=== PATIENT | female | born 1970 | race Caucasian/White ===

== ENCOUNTER → 2016-07-30 | Outpatient (CLI) | payer OTHER ==
--- NOTE | 2016-07-30 13:24 | US ---
EXAMINATION TYPE: US transvaginal DATE OF EXAM: 07/30/2016 1:09 PM COMPARISON: Previous study dated 05/15/2011. CLINICAL HISTORY: pelvic swelling, history of endometrial ablation. Date of LMP: no cycles since ablation approximately 7 years ago EXAM MEASUREMENTS: Uterus: 6.8 x 2.5 x 4.6 cm Endometrial Stripe: 0.3 cm Right Ovary: 2.5 x 1.6 x 1.0 cm Left Ovary: 1.7 x 1.5 x 0.9 cm FINDINGS: TECHNOLOGIST IMPRESSION: 1. Uterus: Anteverted fibroid measuring 1.1 x 0.8 x 0.8 cm 2. Endometrium: measures 0.3 cm 3. Right Ovary: within normal limits 4. Left Ovary: within normal limits 5. Bilateral Adnexa: within normal limits 6. Posterior cul-de-sac: no free fluid IMPRESSION: Fibroid uterus. Normal Values: Uterine Length: < 10cm Endometrium: Proliferative (Day 6 ? 14): 4 ? 6mm [place] (Day 15 ? 28): 7 ? 14mm Post Menopausal (and not symptomatic): up to 8mm Post Menopausal (with vaginal bleeding): upper limits <5mm Post Menopausal with HRT: upper limits 8 - 15mm Post Menopausal with tamoxifen: < 6mm (although 50% of those receiving tamoxifen have been reported t o have thickness >8mm)
--- NOTE | 2016-07-31 14:05 | MM ---
Reason for exam: screening (asymptomatic). Last mammogram was performed 1 year and 9 months ago. History: Family history of breast cancer in maternal grandmother. Physical Findings: A clinical breast exam by your physician is recommended on an annual basis and results should be correlated with mammographic findings. MG Screening Mammo w CAD Bilateral CC and MLO view(s) were taken. Prior study comparison: October 17, 2014, right breast MG work up mamm w CAD RT. October 12, 2014, bilateral MG screening mammo w CAD. March 18, 2012, bilateral digital screening mammo w/CAD. There are scattered fibroglandular densities. No significant changes when compared with prior studies. ASSESSMENT: Negative, BI-RAD 1 RECOMMENDATION: Routine screening mammogram of both breasts in 1 year.
== END | disposition home or self-care (01) ==
LOC: RADUSWWP 12:32
PROVIDERS: ATTEND Family Medicine
DX: Z12.31 Encounter for screening mammogram for malignant neoplasm of breast (principal); D25.9 Leiomyoma of uterus, unspecified
CPT/HCPCS: 76830; G0202

== ENCOUNTER → 2016-10-10 | Outpatient (CLI) | payer OTHER ==
[2016-10-10 08:16] LABS: ALT 34 U/L (9-52); AST 24 U/L (14-36); Cholesterol 151 mg/dL (<200); HDL Cholesterol 57 mg/dL (40-60); Triglycerides 111 mg/dL (<150)
== END | disposition home or self-care (01) ==
LOC: LABWHC1 06:46
PROVIDERS: ATTEND Nurse Practitioner Adult Health
DX: E78.5 Hyperlipidemia, unspecified (principal); E11.9 Type 2 diabetes mellitus without complications
CPT/HCPCS: 36415; 80061; 84450; 84460

== ENCOUNTER 2017-03-25 00:38 | Observation (INO) | payer OTHER ==
[2017-03-25] MEDS ORDERED: SODIUM CHLORIDE 0.9% 500 ML IV STA (01:12)
[2017-03-25 01:23] LABS: Basophils # (A) 0.1 k/uL (0-0.2); Basophils % (A) 1 %; CH 29.8; CHCM 32.6; Eosinophils # (A) 0.2 k/uL (0-0.7); Eosinophils % (A) 2 %; HCT 40.4 % (34.0-46.0); HDW 2.32; HGB 13.3 gm/dL (11.4-16.0); Luc # (Auto) 0.37; Luc % (Auto) 3; Lymphocytes # (A) 3.9 k/uL (1.0-4.8); Lymphocytes % (A) 33 %; MCH 30.2 pg (25.0-35.0); MCHC 32.8 g/dL (31.0-37.0); MCV 91.9 fL (80.0-100.0); Mean Platelet Volume 7.3; Monocytes # (A) 0.6 k/uL (0-1.0); Monocytes % (A) 5 %; Neutrophils # (A) 6.9 k/uL (1.3-7.7); Neutrophils % (A) 57 %; WBC 12.1 k/uL (3.8-10.6); WBC (Perox) 11.49
[2017-03-25 01:32] LABS: ALT 41 U/L (9-52); AST 22 U/L (14-36); Alkaline Phosphatase 98 U/L (38-126); Anion Gap 12 mmol/L; Blood Urea Nitrogen 14 mg/dL (7-17); Calcium 9.8 mg/dL (8.4-10.2); Carbon Dioxide 25 mmol/L (22-30); Chloride 104 mmol/L (98-107); Glucose 158 mg/dL (74-99); Magnesium 1.9 mg/dL (1.6-2.3); Non-African American GFR(MDRD) >60 (>60 ml/min/1.73 sqM); Potassium 4.1 mmol/L (3.5-5.1); Sodium 141 mmol/L (137-145); Total Bilirubin 0.3 mg/dL (0.2-1.3); Total Protein 7.1 g/dL (6.3-8.2)
[2017-03-25 01:36] LABS: INR 0.9 (<1.2); Partial Thromboplastin Time 29.3 sec (22.0-30.0); Prothrombin Time 9.3 sec (9.0-12.0)
[2017-03-25] MEDS ORDERED: RX INFO: IV CONTRAST WAS GIVEN 1 EACH MISC MISCELLANE PRN ×3 (01:50→13:48)
[2017-03-25] MEDS ORDERED: methylPREDNISolone SOD SUCCI 125 MG/2 ML VIAL IV STA (01:51)
[2017-03-25] MEDS ORDERED: diphenhydrAMINE 50 MG/ML 1 ML VIAL IVP STA (01:51)
[2017-03-25] MEDS ORDERED: FAMOTIDINE 20 MG/2 ML VIAL IV STA (01:51)
--- NOTE | 2017-03-25 01:55 | ED ---
Arrhythmia/Palpitations HPI - General Chief Complaint: Arrhythmia/Palpitations Stated Complaint: arrhythmia Time Seen by Provider: 03/25/17 00:50 Source: patient Mode of arrival: wheelchair Limitations: no limitations - History of Present Illness Initial Comments: This patient is a 46-year-old woman who presents to be evaluated for racing heart. The patient states that she had gone to sleep feeling approximately her usual self, and then she woke up about 30 minutes before arrival here with a feeling that her heart was racing and that she was short of breath. She did feel warm, and there was a bit of pressure in her chest. She states that she is feeling a little better but her heart is still racing. The patient states she has had previous episodes of this and was diagnosed with "tachycardia." She does state that this episode feels more severe than the previous ones. MD Complaint: rapid heart beat -: minutes(s) Context: occurred during rest Associated Symptoms: chest pain, shortness of breath - Related Data Home Medications Medication Instructions Recorded Confirmed metFORMIN HCL [Glucophage] 500 mg PO AC-BID 09/17/15 03/25/17 Aspirin 81 mg PO DAILY 03/25/17 03/25/17 Cholecalciferol [Vitamin D3] 1,000 unit PO DAILY 03/25/17 03/25/17 Pravastatin Sodium [Pravachol] 20 mg PO QAM 03/25/17 03/25/17 Vitamin B Complex 1 cap PO DAILY 03/25/17 03/25/17 Allergies Allergy/AdvReac Type Severity Reaction Status Date / Time iodine Allergy Rash/Hives Verified 03/25/17 07:47 Sulfa (Sulfonamide Allergy Rash/Hives Verified 03/25/17 07:47 Antibiotics) Review of Systems ROS Statement: Those systems with pertinent positive or pertinent negative responses have been documented in the HPI. ROS Other: All systems not noted in ROS Statement are negative. Constitutional: Denies: fever, chills, weakness Respiratory: Reports: dyspnea. Denies: cough, wheezes Cardiovascular: Reports: chest pain, palpitations. Denies: dyspnea on exertion , orthopnea Gastrointestinal: Denies: abdominal pain, nausea, vomiting Genitourinary: Denies: dysuria, hematuria Musculoskeletal: Denies: back pain Skin: Denies: rash Neurological: Denies: headache, weakness, numbness Psychiatric: Reports: anxiety Past Medical History Past Medical History: Diabetes Mellitus Additional Past Medical History / Comment(s): diet control diabetic, lumps in neck felt, enlarged salivary gland, tachycardia History of Any Multi-Drug Resistant Organisms: None Reported Past Surgical History: Cholecystectomy, Tonsillectomy, Tubal Ligation, Uterine Ablation Additional Past Surgical History / Comment(s): heel spur medical lupus, factor 5 Past Anesthesia/Blood Transfusion Reactions: No Reported Reaction Past Psychological History: Anxiety Smoking Status: Current every day smoker Past Alcohol Use History: Occasional Past Drug Use History: Marijuana - Past Family History Mother Family Medical History: No Reported History General Exam Limitations: no limitations General appearance: alert, in no apparent distress Head exam: Present: atraumatic, normocephalic, normal inspection Eye exam: Present: normal appearance. Absent: scleral icterus, conjunctival injection ENT exam: Present: normal oropharynx Neck exam: Present: normal inspection, full ROM Respiratory exam: Present: normal lung sounds bilaterally. Absent: respiratory distress, wheezes, rales, rhonchi, stridor Cardiovascular Exam: Present: normal rhythm, tachycardia, normal heart sounds. Absent: systolic murmur, diastolic murmur, rubs, gallop GI/Abdominal exam: Present: soft. Absent: distended, tenderness, guarding, rebound, rigid Extremities exam: Present: normal inspection, normal capillary refill. Absent: pedal edema, calf tenderness Back exam: Absent: CVA tenderness (R), CVA tenderness (L) Neurological exam: Present: alert Skin exam: Present: warm, dry, intact, normal color. Absent: rash Course Vital Signs 03/25/17 03/25/17 03/25/17 00:43 01:38 02:30 Temperature 98.5 F Pulse Rate 130 H 110 H 108 H Pulse Rate [ Pulse Oximetery ] Respiratory 16 18 18 Rate Blood Pressure 179/84 146/68 153/72 Blood Pressure [Left Arm] O2 Sat by Pulse 95 97 97 Oximetry 03/25/17 03/25/17 03/25/17 03:05 03:30 04:00 Temperature Pulse Rate 104 H 96 90 Pulse Rate [ Pulse Oximetery ] Respiratory 18 18 18 Rate Blood Pressure 136/68 142/71 126/67 Blood Pressure [Left Arm] O2 Sat by Pulse 96 96 95 Oximetry 03/25/17 03/25/17 03/25/17 04:52 05:00 05:06 Temperature 98.4 F 98.0 F Pulse Rate 100 Pulse Rate [ 91 Pulse Oximetery ] Respiratory 18 18 Rate Blood Pressure 139/67 Blood Pressure 135/64 [Left Arm] O2 Sat by Pulse 95 96 Oximetry EKG Findings - EKG Results: EKG: interpreted by ERMD, sinus rhythm, normal axis, normal QRS EKG shows: tachycardia (Rate aproximately 131 bpm) - Blocks, [place], Hypertrophy, ST Abn: Repolarization changes or abnormalities: nonspecific abnormality, ST segment, and/or T wave Medical Decision Making - Lab Data Result diagrams: 03/25/17 00:59 03/25/17 00:59 Lab Results 03/25/17 03/25/17 03/25/17 Range/Units 00:59 00:59 00:59 WBC 12.1 H (3.8-10.6) k/uL RBC 4.40 (3.80-5.40) m/uL Hgb 13.3 (11.4-16.0) gm/dL Hct 40.4 (34.0-46.0) % MCV 91.9 (80.0-100.0) fL MCH 30.2 (25.0-35.0) pg MCHC 32.8 (31.0-37.0) g/dL RDW 15.0 (11.5-15.5) % Plt Count 336 (150-450) k/uL Neutrophils % 57 % Lymphocytes % 33 % Monocytes % 5 % Eosinophils % 2 % Basophils % 1 % Neutrophils # 6.9 (1.3-7.7) k/uL Lymphocytes # 3.9 (1.0-4.8) k/uL Monocytes # 0.6 (0-1.0) k/uL Eosinophils # 0.2 (0-0.7) k/uL Basophils # 0.1 (0-0.2) k/uL PT 9.3 (9.0-12.0) sec INR 0.9 (<1.2) APTT 29.3 (22.0-30.0) sec D-Dimer 0.76 H (<0.60) mg/L FEU Sodium 141 (137-145) mmol/L Potassium 4.1 (3.5-5.1) mmol/L Chloride 104 (98-107) mmol/L Carbon Dioxide 25 (22-30) mmol/L Anion Gap 12 mmol/L BUN 14 (7-17) mg/dL Creatinine 0.70 (0.52-1.04) mg/dL Est GFR (MDRD) Af Amer >60 (>60 ml/min/1.73 sqM) Est GFR (MDRD) Non-Af >60 (>60 ml/min/1.73 sqM) Glucose 158 H (74-99) mg/dL Calcium 9.8 (8.4-10.2) mg/dL Magnesium 1.9 (1.6-2.3) mg/dL Total Bilirubin 0.3 (0.2-1.3) mg/dL AST 22 (14-36) U/L ALT 41 (9-52) U/L Alkaline Phosphatase 98 (38-126) U/L Troponin I (0.000-0.034) ng/mL Total Protein 7.1 (6.3-8.2) g/dL Albumin 4.4 (3.5-5.0) g/dL TSH 1.610 (0.465-4.680) mIU/L Urine Color Urine Appearance (Clear) Urine pH (5.0-8.0) Ur Specific [place] (1.001-1.035) Urine Protein (Negative) Urine Glucose (UA) (Negative) Urine Ketones (Negative) Urine Blood (Negative) Urine Nitrite (Negative) Urine Bilirubin (Negative) Urine Urobilinogen (<2.0) mg/dL Ur Leukocyte Esterase (Negative) Urine RBC (0-5) /hpf Urine WBC (0-5) /hpf Ur Squamous Epith Cells (0-4) /hpf Urine Bacteria (None) /hpf Urine Mucus (None) /hpf 03/25/17 03/25/17 Range/Units 00:59 02:20 WBC (3.8-10.6) k/uL RBC (3.80-5.40) m/uL Hgb (11.4-16.0) gm/dL Hct (34.0-46.0) % MCV (80.0-100.0) fL MCH (25.0-35.0) pg MCHC (31.0-37.0) g/dL RDW (11.5-15.5) % Plt Count (150-450) k/uL Neutrophils % % Lymphocytes % % Monocytes % % Eosinophils % % Basophils % % Neutrophils # (1.3-7.7) k/uL Lymphocytes # (1.0-4.8) k/uL Monocytes # (0-1.0) k/uL Eosinophils # (0-0.7) k/uL Basophils # (0-0.2) k/uL PT (9.0-12.0) sec INR (<1.2) APTT (22.0-30.0) sec D-Dimer (<0.60) mg/L FEU Sodium (137-145) mmol/L Potassium (3.5-5.1) mmol/L Chloride (98-107) mmol/L Carbon Dioxide (22-30) mmol/L Anion Gap mmol/L BUN (7-17) mg/dL Creatinine (0.52-1.04) mg/dL Est GFR (MDRD) Af Amer (>60 ml/min/1.73 sqM) Est GFR (MDRD) Non-Af (>60 ml/min/1.73 sqM) Glucose (74-99) mg/dL Calcium (8.4-10.2) mg/dL Magnesium (1.6-2.3) mg/dL Total Bilirubin (0.2-1.3) mg/dL AST (14-36) U/L ALT (9-52) U/L Alkaline Phosphatase (38-126) U/L Troponin I 0.013 (0.000-0.034) ng/mL Total Protein (6.3-8.2) g/dL Albumin (3.5-5.0) g/dL TSH (0.465-4.680) mIU/L Urine Color Light Yellow Urine Appearance Clear (Clear) Urine pH 5.5 (5.0-8.0) Ur Specific [place] 1.006 (1.001-1.035) Urine Protein Negative (Negative) Urine Glucose (UA) Negative (Negative) Urine Ketones Negative (Negative) Urine Blood Negative (Negative) Urine Nitrite Negative (Negative) Urine Bilirubin Negative (Negative) Urine Urobilinogen <2.0 (<2.0) mg/dL Ur Leukocyte Esterase Small H (Negative) Urine RBC 1 (0-5) /hpf Urine WBC 2 (0-5) /hpf Ur Squamous Epith Cells 2 (0-4) /hpf Urine Bacteria Rare H (None) /hpf Urine Mucus Rare H (None) /hpf Critical Care Time Critical Care Time: Yes (35 minutes) Disposition Clinical Impression: Pulmonary embolus Disposition: ADMITTED IP TO THIS HOSP Condition: Fair
[2017-03-25 02:33] LABS: Appearance,Urine Clear (Clear); Bacteria,Urine Rare /hpf; Bilirubin,Urine Negative (Negative); Glucose,Urine (UA) Negative (Negative); Ketones,Urine Negative (Negative); Leukocyte Esterase,Urine Small (Negative); Mucus,Urine Rare /hpf; Nitrite,Urine Negative (Negative); PH, Urine 5.5 (5.0-8.0); Particle Count 2484; Protein,Urine Negative (Negative); RBC,Urine 1 /hpf (0-5); Specific Gravity,Urine 1.006 (1.001-1.035); Squamous Epithelial Cell,Urine 2 /hpf (0-4); UA Billing (MACRO vs. MICRO) MICRO; Urobilinogen,Urine <2.0 mg/dL (<2.0); WBC,Urine 2 /hpf (0-5)
--- NOTE | 2017-03-25 02:54 | XR ---
PROCEDURE: FILM CXR 1 VIEW HISTORY: 46 year-old female with arrhythmia. COMPARISON: Chest radiograph 09/17/2015 TECHNIQUE: Frontal view of the chest was obtained. FINDINGS: Limited by technique. Cardiomediastinal silhouette is stable. No evidence of focal consolidation, pleural effusion, or pneumothorax. Bones are unremarkable for age. IMPRESSION: Unremarkable single view chest.
--- NOTE | 2017-03-25 04:17 | CT ---
PROCEDURE: CTA CHEST HISTORY: 46-year-old female with arrhythmia and elevated d-dimer. COMPARISON: CT chest 06/05/2016 TECHNIQUE: After administration of 70 mL of Omnipaque 350 contrast material intravenously, CT imaging was obtained through the chest. Coronal and sagittal reformations were performed. Coronal and sagittal MIP reformations were also performed. DOSE: Total Exam volume computed tomography dose index (CTDIvol) = 85.5 mGy and Dose Length Product (DLP) = 385.7 mGY-cm. This CT exam was performed using one or more of the following dose reduction techniques: automated exposure control, adjustment of the mA and/or kV according to patient size, and/or use of iterative reconstruction technique. FINDINGS: Evaluation is limited by motion degradation. Soft tissues: Visualized portions of the thyroid gland are unremarkable. No significant mediastinal, hilar, or axillary lymphadenopathy. There are a few calcified left hilar and mediastinal lymph nodes, likely due to prior granulomatous exposure. There is evidence of occlusive segmental and subsegmental pulmonary embolism to the apical segment of the right upper lobe. The RV/LV ratio measures approximately 0.9 . Otherwise, the heart and great vessels are within normal limits. The esophagus is unremarkable. Limited evaluation of the upper abdomen demonstrates a splenic calcification, likely due to prior granulomatous exposure. Lungs: Bilateral atelectasis. Mild paraseptal emphysema. 2 millimeter, solid-appearing, pleural-based nodule along the right minor fissure anteriorly, series 5 image 91 unchanged compared to prior. No pleural effusion. 6 millimeter density in the dependent portion of the distal trachea, series 5 image 54, may represent secretions or small nodule. Bones: Multilevel degenerative changes of the spine IMPRESSION: 1. Occlusive segmental and subsegmental pulmonary embolism to the apical segment of the right upper lobe. The RV/LV ratio measures approximately 0. 9. 2. Mild paraseptal emphysema. 3. 6 millimeter density in the dependent portion of the distal trachea, series 5 image 54, may represent secretions or small nodule. Attention to this region on followup imaging. 4. Other findings as detailed above. [employer] 03/25/17 04:16 Call Doctor Regarding Above results, called Dr. Yu on 03/25 04:15 (-04:00)
[2017-03-25] MEDS ORDERED: HEPARIN SODIUM,PORCINE 5,000 UNIT/ML 1 ML VIAL IV STA (04:33)
[2017-03-25] MEDS ORDERED: HEPARIN SODIUM,PORCINE/D5W PMX 25,000 UNIT in DEXTROSE/WATER 1 500ML.BAG IV ONE (04:33)
[2017-03-25] MEDS ORDERED: ONDANSETRON 4 MG/2 ML VIAL IVP PRN (04:35)
[2017-03-25] MEDS ORDERED: ACETAMINOPHEN TAB 325 MG TAB PO PRN (04:35)
[2017-03-25] MEDS ORDERED: MORPHINE SULFATE 4 MG/ML SYRINGE IV PRN (04:35)
[2017-03-25] MEDS ORDERED: NALOXONE 0.4 MG/ML 1 ML VIAL IV PRN (04:35)
[2017-03-25] MEDS ORDERED: SODIUM CHLORIDE 0.9% 1,000 ML IV SCH (04:45)
[2017-03-25] MEDS ORDERED: HEPARIN SODIUM,PORCINE/D5W PMX 25,000 UNIT in DEXTROSE/WATER 1 500ML.BAG IV SCH (04:53)
[2017-03-25 05:48] VITALS: BMI 33.0
[2017-03-25 06:28] LABS: Glucose,Whole Blood 177 mg/dL (75-99)
[2017-03-25] MEDS: INSULIN LISPRO (humaLOG) 300 UNIT/3 ML VIAL SQ SCH ×3 (06:41→12:45)
[2017-03-25 08:36] LABS: Hemoglobin A1C 6.8 % (4.2-6.1)
[2017-03-25 08:47] LABS: Glucose,Whole Blood 240 mg/dL (75-99)
[2017-03-25] MEDS ORDERED: FAMOTIDINE 20 MG TAB PO SCH (09:00)
[2017-03-25] MEDS ORDERED: ASPIRIN 325 MG TAB PO SCH (09:00)
--- NOTE | 2017-03-25 09:32 | P.CRDCN ---
History of Present Illness Chief complaint: acute PE History of present illness: Please see full dictation by Dr. abraham. 46-year-old female patient of Dr. Elvira Morales and myself who is a history of inappropriate sinus tachycardia, dyslipidemia, smoking and a history of asthma. She also has diabetes. She presents with acute pulmonary embolism, presented with palpitations and shortness of breath that woke her up at night. In May she had a CT contrast of the chest which did not show any pulmonary embolism. This seems somewhat unprovoked. No recent injury no recent long car travel or air travel, no family history no recent surgeries Plan 2-D echo and Doppler study and anticoagulation Management per admitting physician Watch for any arrhythmias Past Medical History Past Medical History: Diabetes Mellitus Additional Past Medical History / Comment(s): diet control diabetic, lumps in neck felt, enlarged salivary gland, tachycardia History of Any Multi-Drug Resistant Organisms: None Reported Past Surgical History: Cholecystectomy, Tonsillectomy, Tubal Ligation, Uterine Ablation Additional Past Surgical History / Comment(s): heel spur medical lupus, factor 5 Past Anesthesia/Blood Transfusion Reactions: No Reported Reaction Past Psychological History: Anxiety Smoking Status: Current every day smoker Past Alcohol Use History: Occasional Past Drug Use History: Marijuana - Past Family History Mother Family Medical History: No Reported History Medications and Allergies Home Medications Medication Instructions Recorded Confirmed Type metFORMIN HCL [Glucophage] 500 mg PO AC-BID 09/17/15 03/25/17 History Aspirin 81 mg PO DAILY 03/25/17 03/25/17 History Cholecalciferol [Vitamin D3] 1,000 unit PO DAILY 03/25/17 03/25/17 History Pravastatin Sodium [Pravachol] 20 mg PO QAM 03/25/17 03/25/17 History Vitamin B Complex 1 cap PO DAILY 03/25/17 03/25/17 History Allergies Allergy/AdvReac Type Severity Reaction Status Date / Time iodine Allergy Rash/Hives Verified 03/25/17 07:47 Sulfa (Sulfonamide Allergy Rash/Hives Verified 03/25/17 07:47 Antibiotics) Physical Exam Vitals: Vital Signs Temp Pulse Pulse Resp BP BP Pulse Ox 03/25/17 08:30 98.5 F 89 18 127/69 95 03/25/17 05:06 98.0 F 03/25/17 05:00 100 18 139/67 96 03/25/17 04:52 98.4 F 91 18 135/64 95 03/25/17 04:00 90 18 126/67 95 03/25/17 03:30 96 18 142/71 96 03/25/17 03:05 104 H 18 136/68 96 03/25/17 02:30 108 H 18 153/72 97 03/25/17 01:38 110 H 18 146/68 97 03/25/17 00:43 98.5 F 130 H 16 179/84 95 Intake and Output 03/24/17 03/25/17 03/25/17 22:59 06:59 14:59 Intake Total 1074 Balance 1074 Intake: Intake, IV Titration 1074 Amount Sodium Chloride 0.9% 1, 75 000 ml @ 75 mls/hr IV . [id number] [facility] Rx#:[id number] Sodium Chloride 0.9% 500 999 ml @ 999 mls/hr IV .Q31M [facility]A Rx#:[id number] Other: # Voids 1 Weight 76.7 kg Results 03/25/17 00:59 03/25/17 00:59 Cardiac Enzymes 03/25/17 03/25/17 Range/Units 00:59 00:59 AST 22 (14-36) U/L Troponin I 0.013 (0.000-0.034) ng/mL Coagulation 03/25/17 Range/Units 00:59 PT 9.3 (9.0-12.0) sec APTT 29.3 (22.0-30.0) sec CBC 03/25/17 Range/Units 00:59 WBC 12.1 H (3.8-10.6) k/uL RBC 4.40 (3.80-5.40) m/uL Hgb 13.3 (11.4-16.0) gm/dL Hct 40.4 (34.0-46.0) % Plt Count 336 (150-450) k/uL Comprehensive Metabolic Panel 03/25/17 Range/Units 00:59 Sodium 141 (137-145) mmol/L Potassium 4.1 (3.5-5.1) mmol/L Chloride 104 (98-107) mmol/L Carbon Dioxide 25 (22-30) mmol/L BUN 14 (7-17) mg/dL Creatinine 0.70 (0.52-1.04) mg/dL Glucose 158 H (74-99) mg/dL Calcium 9.8 (8.4-10.2) mg/dL AST 22 (14-36) U/L ALT 41 (9-52) U/L Alkaline Phosphatase 98 (38-126) U/L Total Protein 7.1 (6.3-8.2) g/dL Albumin 4.4 (3.5-5.0) g/dL Current Medications Generic Name Dose Route Start Last Admin Trade Name Freq PRN Reason Stop Dose Admin Acetaminophen 650 mg 03/25/17 04:35 Tylenol Tab PO Q6HR PRN Mild Pain or Fever > 100.5 Aspirin 325 mg 03/25/17 09:00 03/25/17 08:43 Aspirin PO 325 mg DAILY SJ Administration Cholecalciferol 400 unit 03/25/17 12:00 03/25/17 08:41 Vitamin D3 PO 400 unit DAILY@1200 SJ Administration Famotidine 20 mg 03/25/17 09:00 03/25/17 08:41 Pepcid PO 20 mg BID SJ Administration Sodium Chloride 1,000 mls @ 75 mls/hr 03/25/17 04:45 03/25/17 04:50 Saline 0.9% IV 75 mls/hr .[id number] SJ Administration Heparin Sodium/Dextrose 25,000 500 mls @ 27.92 mls/hr 03/25/17 04:53 04:54 unit/ IV Solution IV 18 units/kg/hr .[id number] SJ 27.92 mls/hr Protocol Administration 18 UNITS/KG/HR Insulin Human Lispro 0 unit 03/25/17 07:30 03/25/17 08:44 Humalog SQ 3 unit ACHS SJ Administration Protocol Miscellaneous Information 1 each 03/25/17 01:50 Rx Info: Iv Contrast Was Given MISCELLANE 03/27/17 01:51 DAILY PRN Per Protocol Morphine Sulfate 4 mg 03/25/17 04:35 Morphine Sulfate (Inj) IV Q4HR PRN Severe Pain Naloxone HCl 0.2 mg 03/25/17 04:35 Narcan IV Q2M PRN Opioid Reversal Ondansetron HCl 4 mg 03/25/17 04:35 Zofran IVP Q8HR PRN Nausea And Vomiting Intake and Output 08/2903/25/17 03/25/17 22:59 06:59 14:59 Intake Total 1074 Balance 1074 Intake: Intake, IV Titration 1074 Amount Sodium Chloride 0.9% 1, 75 000 ml @ 75 mls/hr IV . [id number] [facility] Rx#:[id number] Sodium Chloride 0.9% 500 999 ml @ 999 mls/hr IV .Q31M STA Rx#:[id number] Other: # Voids 1 Weight 76.7 kg 03/25/17 00:59 03/25/17 00:59
--- NOTE | 2017-03-25 10:01 | P.CRDCN ---
History of Present Illness Consult date: 03/25/17 Requesting physician: Shannan Short Reason for Consult (text): PE Chief complaint: Chest pressure and shortness of breath with associated heart racing History of present illness: This is a pleasant 46-year-old female who follows regularly with Dr. Armas in the office. She has a history of inappropriate sinus tachycardia, hyperlipidemia, nicotine dependence, asthma, diabetes, ankylosing spondylitis, lupus, hyperlipidemia, presents to the hospital with symptoms of mild chest discomfort with associated shortness of breath and feeling her heart racing. She stated that the feeling of her heart racing was much different than what she had experienced in the past. EKG on arrival here revealed a sinus tachycardia with S1 Q3 pattern. CT of the chest was performed which revealed occlusive segmental and subsegmental pulmonary embolism to the apical segment of the right upper lobe. Also 6 mm density in the dependent distal portion of the trachea. This density area was unchanged from prior, patient did have a CAT scan of the chest performed in May, no evidence of pulmonary embolism at that time taking any recent long trips, no recent injury or recent surgeries. Chest x-ray unremarkable. Blood pressure on arrival here 178/80 with a heart rate in the 130s, 95% on room air. White blood cell count 12.1, hemoglobin 13.3, d-dimer 0.76. Potassium 4.1, BUN 14, creatinine 0.7. Troponin 0.013. TSH level I.6. Patient was initiated on IV heparin in the emergency room. Past Medical History Past Medical History: Diabetes Mellitus Additional Past Medical History / Comment(s): diet control diabetic, lumps in neck felt, enlarged salivary gland, tachycardia History of Any Multi-Drug Resistant Organisms: None Reported Past Surgical History: Cholecystectomy, Tonsillectomy, Tubal Ligation, Uterine Ablation Additional Past Surgical History / Comment(s): heel spur medical lupus, factor 5 Past Anesthesia/Blood Transfusion Reactions: No Reported Reaction Past Psychological History: Anxiety Smoking Status: Current every day smoker Past Alcohol Use History: Occasional Past Drug Use History: Marijuana - Past Family History Mother Family Medical History: No Reported History Medications and Allergies Home Medications Medication Instructions Recorded Confirmed Type metFORMIN HCL [Glucophage] 500 mg PO AC-BID 09/17/15 03/25/17 History Aspirin 81 mg PO DAILY 03/25/17 03/25/17 History Cholecalciferol [Vitamin D3] 1,000 unit PO DAILY 03/25/17 03/25/17 History Pravastatin Sodium [Pravachol] 20 mg PO QAM 03/25/17 03/25/17 History Vitamin B Complex 1 cap PO DAILY 03/25/17 03/25/17 History Allergies Allergy/AdvReac Type Severity Reaction Status Date / Time iodine Allergy Rash/Hives Verified 03/25/17 07:47 Sulfa (Sulfonamide Allergy Rash/Hives Verified 03/25/17 07:47 Antibiotics) Physical Exam Vitals: Vital Signs Temp Pulse Pulse Resp BP BP Pulse Ox 03/25/17 08:30 98.5 F 89 18 127/69 95 03/25/17 05:06 98.0 F 03/25/17 05:00 100 18 139/67 96 03/25/17 04:52 98.4 F 91 18 135/64 95 03/25/17 04:00 90 18 126/67 95 03/25/17 03:30 96 18 142/71 96 03/25/17 03:05 104 H 18 136/68 96 03/25/17 02:30 108 H 18 153/72 97 03/25/17 01:38 110 H 18 146/68 97 03/25/17 00:43 98.5 F 130 H 16 179/84 95 Intake and Output 03/24/17 03/25/17 03/25/17 22:59 06:59 14:59 Intake Total 1074 Balance 1074 Intake: Intake, IV Titration 1074 Amount Sodium Chloride 0.9% 1, 75 000 ml @ 75 mls/hr IV . [id number] Rx#:[id number] Sodium Chloride 0.9% 500 999 ml @ 999 mls/hr IV .Q31M [facility] Rx#:[id number] Other: # Voids 1 Weight 76.7 kg PHYSICAL EXAMINATION: HEENT: Head is atraumatic, normocephalic. Pupils equal, round. Neck is supple. There is no elevated jugular venous pressure. HEART EXAMINATION: Heart S1, S2 normal. No murmur or gallop heard. CHEST EXAMINATION: Lungs are clear to auscultation and precussion. No chest wall tenderness is noted on palpation or with deep breathing. ABDOMEN: Soft, nontender. Bowel sounds are heard. No organomegaly noted. EXTREMITIES: 2+ peripheral pulses with no evidence of peripheral edema and no calf tenderness noted. NEUROLOGIC patient is awake, alert and oriented -3. . Results 03/25/17 00:59 03/25/17 00:59 Cardiac Enzymes 03/25/17 03/25/17 Range/Units 00:59 00:59 AST 22 (14-36) U/L Troponin I 0.013 (0.000-0.034) ng/mL Coagulation 03/25/17 Range/Units 00:59 PT 9.3 (9.0-12.0) sec APTT 29.3 (22.0-30.0) sec CBC 03/25/17 Range/Units 00:59 WBC 12.1 H (3.8-10.6) k/uL RBC 4.40 (3.80-5.40) m/uL Hgb 13.3 (11.4-16.0) gm/dL Hct 40.4 (34.0-46.0) % Plt Count 336 (150-450) k/uL Comprehensive Metabolic Panel 03/25/17 Range/Units 00:59 Sodium 141 (137-145) mmol/L Potassium 4.1 (3.5-5.1) mmol/L Chloride 104 (98-107) mmol/L Carbon Dioxide 25 (22-30) mmol/L BUN 14 (7-17) mg/dL Creatinine 0.70 (0.52-1.04) mg/dL Glucose 158 H (74-99) mg/dL Calcium 9.8 (8.4-10.2) mg/dL AST 22 (14-36) U/L ALT 41 (9-52) U/L Alkaline Phosphatase 98 (38-126) U/L Total Protein 7.1 (6.3-8.2) g/dL Albumin 4.4 (3.5-5.0) g/dL Current Medications Generic Name Dose Route Start Last Admin Trade Name Freq PRN Reason Stop Dose Admin Acetaminophen 650 mg 03/25/17 04:35 Tylenol Tab PO Q6HR PRN Mild Pain or Fever > 100.5 Aspirin 325 mg 03/25/17 09:00 03/25/17 08:43 Aspirin PO 325 mg DAILY SJ Administration Cholecalciferol 400 unit 03/25/17 12:00 03/25/17 08:41 Vitamin D3 PO 400 unit DAILY@1200 SJ Administration Famotidine 20 mg 03/25/17 09:00 03/25/17 08:41 Pepcid PO 20 mg BID SJ Administration Sodium Chloride 1,000 mls @ 75 mls/hr 03/25/17 04:45 03/25/17 04:50 Saline 0.9% IV 75 mls/hr .[id number] SJ Administration Heparin Sodium/Dextrose 25,000 500 mls @ 27.92 mls/hr 03/25/17 04:53 04:54 unit/ IV Solution IV 18 units/kg/hr .[id number] [facility]J 27.92 mls/hr Protocol Administration 18 UNITS/KG/HR Insulin Human Lispro 0 unit 03/25/17 07:30 03/25/17 08:44 Humalog SQ 3 unit ACHS SJ Administration Protocol Miscellaneous Information 1 each 03/25/17 01:50 Rx Info: Iv Contrast Was Given MISCELLANE 03/27/17 01:51 DAILY PRN Per Protocol Morphine Sulfate 4 mg 03/25/17 04:35 Morphine Sulfate (Inj) IV Q4HR PRN Severe Pain Naloxone HCl 0.2 mg 03/25/17 04:35 Narcan IV Q2M PRN Opioid Reversal Ondansetron HCl 4 mg 03/25/17 04:35 Zofran IVP Q8HR PRN Nausea And Vomiting Intake and Output 03/24/17 03/25/17 03/25/17 22:59 06:59 14:59 Intake Total 1074 Balance 1074 Intake: Intake, IV Titration 1074 Amount Sodium Chloride 0.9% 1, 75 000 ml @ 75 mls/hr IV . [id number] [facility] Rx#:[id number] Sodium Chloride 0.9% 500 999 ml @ 999 mls/hr IV .Q31M [facility] Rx#:[id number] Other: # Voids 1 Weight 76.7 kg 03/25/17 00:59 03/25/17 00:59 EKG Interpretations (text) EKG shows a sinus tachycardia with S1 Q3 pattern nonspecific ST-T wave changes Assessment and Plan Plan: Assessment and plan #1 acute pulmonary embolism #2 diabetes #3 hyperlipidemia #4 Ankylosing spondylitis #5 lupus #6 inappropriate sinus tachycardia #7 nicotine dependence Plan We will do an echocardiogram with Doppler study, as well as lateral venous duplex study of the lower extremities. CTA of the abdomen with contrast. We will also check to see if the patient has coverage for one of her anticoagulants. Further recommendations to follow. DNP note has been reviewed, I agree with a documented findings and plan of care. Patient was seen and examined.
[2017-03-25] MEDS ORDERED: IOHEXOL 350 MG/ML 25 ML BOTTLE (ORAL USE) PO PRN (10:02)
[2017-03-25] MEDS ORDERED: methylPREDNISolone SOD SUCCI 125 MG/2 ML VIAL IV ONE (10:15)
[2017-03-25] MEDS ORDERED: diphenhydrAMINE 50 MG/ML 1 ML VIAL IVP ONE (10:15)
--- NOTE | 2017-03-25 11:22 | ECHOF ---
Referral Reason:PE MEASUREMENTS -------- HEIGHT: 154.9 cm WEIGHT: 76.7 kg BP: RVIDd: 3.0 cm (< 3.3) IVSd: 1.2 cm (0.6 - 1.1) LVIDd: 4.1 cm (3.9 - 5.3) LVPWd: 1.1 cm (0.6 - 1.1) IVSs: 1.5 cm LVIDs: 2.4 cm LVPWs: 1.8 cm Ao Diam: 3.2 cm (2.0 - 3.7) AV Cusp: 1.8 cm (1.5 - 2.6) LA Diam: 3.4 cm (2.7 - 3.8) MV EXCURSION: 14.273 mm (> 18.000) MV EF SLOPE: 80 mm/s (70 - 150) EPSS: 0.4 cm MV E Hao: 0.88 m/s MV DecT: 166 ms MV A Hao: 0.87 m/s MV E/A Ratio: 1.02 RAP: 5.00 mmHg RVSP: 10.65 mmHg FINDINGS -------- Sinus rhythm. This was a technically good study. There is borderline concentric left ventricular hypertrophy. Overall left ventricular systolic function is normal with, an EF between 55 - 60 %. The right ventricle is normal in size and function. The left atrium is normal in size. The right atrium is normal in size. The aortic valve is trileaflet, and appears structurally normal. No aortic stenosis or regurgitation. There is trace mitral regurgitation. Trace tricuspid regurgitation present. The right ventricular systolic pressure, as measured by Doppler, is 10.65mmHg. Pulmonic valve appears structurally normal. The aortic root size is normal. The pericardium is normal. CONCLUSIONS -------- 1. Sinus rhythm. 2. Trace tricuspid regurgitation present. 3. The right ventricular systolic pressure, as measured by Doppler, is 10.65mmHg. 4. Pulmonic valve appears structurally normal. 5. The aortic root size is normal. 6. The pericardium is normal. 7. This was a technically good study. 8. There is borderline concentric left ventricular hypertrophy. 9. Overall left ventricular systolic function is normal with, an EF between 55 - 60 %. 10. The right ventricle is normal in size and function. 11. The left atrium is normal in size. 12. The right atrium is normal in size. 13. The aortic valve is trileaflet, and appears structurally normal. No aortic stenosis or regurgitation. 14. There is trace mitral regurgitation. KEY ACCOUNT REPRESENTATIVE: Brea Cyr RDCS
[2017-03-25] MEDS ORDERED: CHOLECALCIFEROL 400 UNIT TAB PO SCH (12:00)
--- NOTE | 2017-03-25 12:30 | US ---
EXAMINATION TYPE: US venous doppler duplex LE DATE OF EXAM: 03/25/2017 12:19 PM COMPARISON: NONE CLINICAL HISTORY: r/o DVT. PE, pt currently on Heparin drip SIDE PERFORMED: Bilateral TECHNIQUE: The lower extremity deep venous system is examined utilizing real time linear array sonog mary lou with graded compression, doppler sonography and color-flow sonography. VESSELS IMAGED: External Iliac Vein (EIV) Common Femoral Vein Deep Femoral Vein Greater Saphenous Vein * Femoral Vein Popliteal Vein Small Saphenous Vein * Proximal Calf Veins (* superficial vessels) Right Leg: Negative for DVT Left Leg: Negative for DVT Grayscale, color doppler, spectral doppler imaging performed of the deep veins of the lower extremiti es. There is normal flow, compressibility, vascular waveforms. IMPRESSION: No sonographic evidence of deep venous thrombosis within either lower extremity.
[2017-03-25 14:07] LABS: Glucose,Whole Blood 168 mg/dL (75-99)
--- NOTE | 2017-03-25 15:35 | P.CNPUL ---
History of Present Illness Consult date: 03/25/17 Reason for consult: pulmonary embolism History of present illness: This is a 46-year-old female patient who is known to me in of taking care of this patient on outpatient basis for chronic problems of chest wall pain. The patient was in a good state of health and the patient went to sleep without any major difficulties. At around midnight, the patient woke up having palpitations and tachycardia. She felt panicky and she got very anxious and she end up coming into the hospital. Denied having any chest pain. No cough or sputum production. No hemoptysis. No pleuritic chest pain. No swelling lower extremities. She came into the emergency department with a CT angios the chest was done and this further raises the possibility of an underlying pulmonary embolism knowing that segmental and subsegmental filling defects were mentioned in the pulmonary artery feeding the right upper lobe. Based on that the patient was placed on IV heparin. D-dimer was low at 0.7. Cardiac enzymes were negative. Clinically the patient is doing well. She has no specific complaints. EKG showed sinus tachycardia. The patient was also seen by cardiology. Noted this patient has chronic positive chest wall pain that dates back for more than a year. She had an evaluation general 2015 and she had a brief function test in my office and the findings were essentially within normal limits. A CT angios the chest was done on 08/17/2015 at [facility] and it was negative for pulmonary embolism at was within normal limits. She subsequently had another CAT scan of the chest in May 2016 and the findings are essentially negative for pulmonary embolism. The patient is a chronic smoker in she smoked approximately pack of cigarettes a day. She was told to have chronic costochondritis and pain along the costosternal junction. She was also diagnosed having ankylosing spondylitis by rheumatology. She is also known to have lupus. She has having some dactylitis and she has declined going on immunosuppressive agents do to concern of side effects. She apparently has history of 5 Leyden and lupus anticoagulant in addition. She has never had DVT or pulmonary embolism. This does not run in her family in addition. There is a positive family history of inflammatory bowel disease. The Doppler of the lower extremities was also negative. Review of Systems Constitutional: Reports as per HPI Eyes: denies blurred vision, denies bulging eye, denies decreased vision Ears: deny: decreased hearing, ear discharge, earache Ears, nose, mouth and throat: Denies headache, Denies sore throat Cardiovascular: Reports palpitations Respiratory: Denies cough Gastrointestinal: Denies abdominal pain, Denies diarrhea, Denies nausea, Denies vomiting Genitourinary: Denies dysuria, Denies hematuria Musculoskeletal: Reports limitation of motion, Reports low back pain, Reports myalgias Musculoskeletal: absent: ankle pain, ankle stiffness, ankle swelling Integumentary: Denies pruritus, Denies rash Neurological: Denies numbness, Denies weakness Psychiatric: Denies anxiety, Denies depression Past Medical History Past Medical History: Diabetes Mellitus Additional Past Medical History / Comment(s): Ankylosing spondylitis, lupus, lupus anticoagulant positivity, factor V Leyden, chronic chest wall pain, chronic bronchitis, diabetes mellitus, hyperlipidemia History of Any Multi-Drug Resistant Organisms: None Reported Past Surgical History: Cholecystectomy, Tonsillectomy, Tubal Ligation, Uterine Ablation Additional Past Surgical History / Comment(s): heel spur surgery Past Anesthesia/Blood Transfusion Reactions: No Reported Reaction Past Psychological History: Anxiety Smoking Status: Current every day smoker Past Alcohol Use History: Occasional Past Drug Use History: Marijuana - Past Family History Mother Family Medical History: No Reported History Medications and Allergies Home Medications Medication Instructions Recorded Confirmed Type metFORMIN HCL [Glucophage] 500 mg PO AC-BID 09/17/15 03/25/17 History Aspirin 81 mg PO DAILY 03/25/17 03/25/17 History Cholecalciferol [Vitamin D3] 1,000 unit PO DAILY 03/25/17 03/25/17 History Pravastatin Sodium [Pravachol] 20 mg PO QAM 03/25/17 03/25/17 History Vitamin B Complex 1 cap PO DAILY 03/25/17 03/25/17 History Allergies Allergy/AdvReac Type Severity Reaction Status Date / Time iodine Allergy Rash/Hives Verified 03/25/17 07:47 Sulfa (Sulfonamide Allergy Rash/Hives Verified 03/25/17 07:47 Antibiotics) Physical Exam Vitals: Vital Signs Temp Pulse Pulse Resp BP BP Pulse Ox 03/25/17 11:20 98.2 F 88 18 122/71 96 03/25/17 08:30 98.5 F 89 18 127/69 95 03/25/17 05:06 98.0 F 03/25/17 05:00 100 18 139/67 96 03/25/17 04:52 98.4 F 91 18 135/64 95 03/25/17 04:00 90 18 126/67 95 03/25/17 03:30 96 18 142/71 96 03/25/17 03:05 104 H 18 136/68 96 03/25/17 02:30 108 H 18 153/72 97 03/25/17 01:38 110 H 18 146/68 97 03/25/17 00:43 98.5 F 130 H 16 179/84 95 Intake and Output 03/25/17 03/25/17 03/25/17 06:59 14:59 22:59 Intake Total 1074 231.271 Balance 1074 231.271 Intake: Intake, IV Titration 1074 231.271 Amount Heparin Sodium,Porcine/ 231.271 D5w Pmx 25,000 unit In Dextrose/Water 1 500ml. bag @ 18 UNITS/KG/HR 27. 92 mls/hr IV .[id number] [facility] Rx#:[id number] Sodium Chloride 0.9% 1, 75 000 ml @ 75 mls/hr IV . [id number] [facility] Rx#:[id number] Sodium Chloride 0.9% 500 999 ml @ 999 mls/hr IV .Q31M [facility] Rx#:[id number] Other: # Voids 1 # Bowel Movements 1 Weight 76.7 kg The patient appeared well nourished and normally developed. Vital signs as documented. Head exam is unremarkable. No scleral icterus or corneal arcus noted. Neck is without jugular venous distension, thyromegaly, or carotid bruits. Carotid upstrokes are brisk bilaterally. Lungs are clear to auscultation and percussion. Cardiac exam reveals the PMI to be normally sized and situated. Rhythm is regular. First and second heart sounds normal. No murmurs, rubs or gallops. Abdominal exam reveals normal bowel sounds, no masses , no organomegaly and no aortic enlargement. Extremities are nonedematous and both femoral and pedal pulses are normal. Results - Laboratory Findings CBC and BMP: 03/25/17 00:59 03/25/17 00:59 PT/INR, D-dimer PT 9.3 sec (9.0-12.0) 03/25/17 00:59 INR 0.9 (<1.2) 03/25/17 00:59 D-Dimer 0.76 mg/L FEU (<0.60) H 03/25/17 00:59 Abnormal lab findings: Abnormal Labs 03/25/17 03/25/17 03/25/17 00:59 00:59 00:59 WBC 12.1 H APTT D-Dimer 0.76 H Glucose 158 H POC Glucose (mg/dL) Hemoglobin A1c Ur Leukocyte Esterase Urine Bacteria Urine Mucus 03/25/17 03/25/17 03/25/17 00:59 02:20 06:27 WBC APTT D-Dimer Glucose POC Glucose (mg/dL) 177 H Hemoglobin A1c 6.8 H Ur Leukocyte Esterase Small H Urine Bacteria Rare H Urine Mucus Rare H 03/25/17 03/25/17 03/25/17 08:42 11:12 11:36 WBC APTT 92.6 H D-Dimer Glucose POC Glucose (mg/dL) 240 H 168 H Hemoglobin A1c Ur Leukocyte Esterase Urine Bacteria Urine Mucus - Diagnostic Findings CT scan - chest: image reviewed Assessment and Plan Plan: Assessment 1 acute sinus tachycardia/palpitation. Exact causes cannot clear. My overall suspicion for pulmonary embolism is low. I reviewed the CT angios the chest and there is no convincing evidence of a filling defect in the right upper lobe and I think the contrast uptake within the right upper lobe was essentially poor. D-dimer is low. Doppler of the lower extremities negative. Despite the history of lupus anticoagulant and factor V Leyden, I do not see convincing evidence of pulmonary embolism. The patient on IV heparin. The sinus tachycardia could have been related to an underlying obstructive sleep apnea which could have woken up this patient at night with some tachycardia and gasping. The patient has some manifestations of obstructive sleep apnea and this is to be pursued at a later stage on outpatient basis. Meanwhile, she is on IV heparin. We'll discuss the findings again with the radiologist. 2 ankylosing spondylitis 3 chronic bronchitis 4 lupus anticoagulant 5 factor V Leyden 6 diabetes mellitus 7 hyperlipidemia 8 chronic skeletal chest wall pain. Plan Will discuss the findings with the radiologist and ask them to evaluate the CT angios the chest. Meanwhile continued IV heparin. Further recommendations to follow based on our discussion with the radiologist and based on the certainty of this filling defects in the right upper lobe. Outpatient sleep study. We' ll continue to follow.
[2017-03-25 15:44] VITALS: BP 128/71; PULSE 84; RESP 20; TEMP 97.7
--- NOTE | 2017-03-25 15:44 | P.HPIM ---
History of Present Illness This is a pleasant 46-year-old female with history of inappropriate sinus tachycardia, hyperlipidemia, nicotine dependence, asthma, diabetes, ankylosing spondylitis, lupus, antiphospholipid antibody syndrome hyperlipidemia , presents to the hospital with symptoms of mild chest discomfort with associated shortness of breath and feeling her heart racing. Patient's chest pain started after she became anxious as she started having palpitations because of which she woke up from sleep. Patient's symptoms currently resolved at this point of time patient was a valid by cardiology and pulmonology. Patient had a CAT scan of the chest which was read as pulmonary embolism the right upper lobe. I had extensive discussion with the side guider patient's doesn't have any pleuritic pain patient doesn't have any cough and area of the symptoms of pulmonary embolism. CAT scan of the abdomen is not really impressive for pulmonary embolism after discussion with the side guider. Plan is to discuss with the radiologist again. And if the possibility of the findings on the CAT scan is low for pulmonary embolism then patient will not be discharged on anti-correlation or rales patient will be discharged on new anticoagulants. I had extensive discussion with phone with a applications support specialist. In spite of having history of factor V Leyden deficiency and antiphospholipid anti - body syndrome as there is no evidence of DVT in the past or present is not recommended to start her on anticoagulation. And patient will follow with as an outpatient for further evaluation patient will continue her aspirin. Patient follows up with the photographer model as an outpatient for her SLE Patient had an echo cardiac exam, bilateral lower limb Doppler both of which are essentially within normal notes. Patient had minimal elevation of troponin secondary tachycardia. Patient was a valid by cardiology. Review of Systems REVIEW OF SYSTEMS: CONSTITUTIONAL: No fever, no malaise, no fatigue. HEENT: No recent visual problems or hearing problems. Denied any sore throat. CARDIOVASCULAR: As mentioned in HPI PULMONARY: no cough, no hemoptysis. GASTROINTESTINAL: No diarrhea, no nausea, no vomiting, no abdominal pain. Normoactive bowel sounds. NEUROLOGICAL: No headaches, no weakness, no numbness. HEMATOLOGICAL: Denies any bleeding or petechiae. GENITOURINARY: Denies any burning micturition, frequency, or urgency. MUSCULOSKELETAL/RHEUMATOLOGICAL: Denies any joint pain, swelling, or any muscle pain. ENDOCRINE: Denies any polyuria or polydipsia. The rest of the 14-point review of systems is negative. Past Medical History Past Medical History: Diabetes Mellitus Additional Past Medical History / Comment(s): diet control diabetic, lumps in neck felt, enlarged salivary gland, tachycardia History of Any Multi-Drug Resistant Organisms: None Reported Past Surgical History: Cholecystectomy, Tonsillectomy, Tubal Ligation, Uterine Ablation Additional Past Surgical History / Comment(s): heel spur medical lupus, factor 5 Past Anesthesia/Blood Transfusion Reactions: No Reported Reaction Past Psychological History: Anxiety Smoking Status: Current every day smoker Past Alcohol Use History: Occasional Past Drug Use History: Marijuana - Past Family History Mother Family Medical History: No Reported History Medications and Allergies Home Medications Medication Instructions Recorded Confirmed Type metFORMIN HCL [Glucophage] 500 mg PO AC-BID 09/17/15 03/25/17 History Aspirin 81 mg PO DAILY 03/25/17 03/25/17 History Cholecalciferol [Vitamin D3] 1,000 unit PO DAILY 03/25/17 03/25/17 History Pravastatin Sodium [Pravachol] 20 mg PO QAM 03/25/17 03/25/17 History Vitamin B Complex 1 cap PO DAILY 03/25/17 03/25/17 History Allergies Allergy/AdvReac Type Severity Reaction Status Date / Time iodine Allergy Rash/Hives Verified 03/25/17 07:47 Sulfa (Sulfonamide Allergy Rash/Hives Verified 03/25/17 07:47 Antibiotics) Physical Exam Vitals: Vital Signs Temp Pulse Pulse Resp BP BP Pulse Ox 03/25/17 11:20 98.2 F 88 18 122/71 96 03/25/17 08:30 98.5 F 89 18 127/69 95 03/25/17 05:06 98.0 F 03/25/17 05:00 100 18 139/67 96 03/25/17 04:52 98.4 F 91 18 135/64 95 03/25/17 04:00 90 18 126/67 95 03/25/17 03:30 96 18 142/71 96 03/25/17 03:05 104 H 18 136/68 96 03/25/17 02:30 108 H 18 153/72 97 03/25/17 01:38 110 H 18 146/68 97 03/25/17 00:43 98.5 F 130 H 16 179/84 95 Intake and Output 03/25/17 03/25/17 03/25/17 06:59 14:59 22:59 Intake Total 1074 231.271 Balance 1074 231.271 Intake: Intake, IV Titration 1074 231.271 Amount Heparin Sodium,Porcine/ 231.271 D5w Pmx 25,000 unit In Dextrose/Water 1 500ml. bag @ 18 UNITS/KG/HR 27. 92 mls/hr IV .[id number] SJ Rx#:[id number] Sodium Chloride 0.9% 1, 75 000 ml @ 75 mls/hr IV . [id number] SJ Rx#:[id number] Sodium Chloride 0.9% 500 999 ml @ 999 mls/hr IV .[id number] STA Rx#:[id number] Other: # Voids 1 # Bowel Movements 1 Weight 76.7 kg PHYSICAL EXAMINATION: GENERAL: The patient is alert and oriented x3, not in any acute distress. Well developed, well nourished. HEENT: Pupils are round and equally reacting to light. EOMI. No scleral icterus. No conjunctival pallor. Normocephalic, atraumatic. No pharyngeal erythema. No thyromegaly. CARDIOVASCULAR: S1 and S2 present. No murmurs, rubs, or gallops. PULMONARY: Chest is clear to auscultation, no wheezing or crackles. ABDOMEN: Soft, nontender, nondistended, normoactive bowel sounds. No palpable organomegaly. MUSCULOSKELETAL: No joint swelling or deformity. EXTREMITIES: No cyanosis, clubbing, or pedal edema. NEUROLOGICAL: Gross neurological examination did not reveal any focal deficits. SKIN: No rashes. Results CBC & Chem 7: 03/25/17 00:59 03/25/17 00:59 Labs: Abnormal Lab Results - Last 24 Hours (Table) 03/25/17 03/25/17 03/25/17 Range/Units 00:59 00:59 00:59 WBC 12.1 H (3.8-10.6) k/uL APTT (22.0-30.0) sec D-Dimer 0.76 H (<0.60) mg/L FEU Glucose 158 H (74-99) mg/dL POC Glucose (mg/dL) (75-99) mg/dL Hemoglobin A1c (4.2-6.1) % Ur Leukocyte Esterase (Negative) Urine Bacteria (None) /hpf Urine Mucus (None) /hpf 03/25/17 03/25/17 03/25/17 Range/Units 00:59 02:20 06:27 WBC (3.8-10.6) k/uL APTT (22.0-30.0) sec D-Dimer (<0.60) mg/L FEU Glucose (74-99) mg/dL POC Glucose (mg/dL) 177 H (75-99) mg/dL Hemoglobin A1c 6.8 H (4.2-6.1) % Ur Leukocyte Esterase Small H (Negative) Urine Bacteria Rare H (None) /hpf Urine Mucus Rare H (None) /hpf 03/25/17 03/25/17 03/25/17 Range/Units 08:42 11:12 11:36 WBC (3.8-10.6) k/uL APTT 92.6 H (22.0-30.0) sec D-Dimer (<0.60) mg/L FEU Glucose (74-99) mg/dL POC Glucose (mg/dL) 240 H 168 H (75-99) mg/dL Hemoglobin A1c (4.2-6.1) % Ur Leukocyte Esterase (Negative) Urine Bacteria (None) /hpf Urine Mucus (None) /hpf Thrombosis Risk Factor Assmnt - Choose All That Apply Any of the Below Risk Factors Present?: Yes Each Factor Represents 1 point: Age 41-60 years, Obesity (BMI >25) Other Risk Factors: Yes Each Risk Factor Represents 3 Points: History of DVT/PE Thrombosis Risk Factor Assessment Total Risk Factor Score: 5 Thrombosis Risk Factor Assessment Level: High Risk Assessment and Plan Plan: #1 tachycardia and related chest pain shortness of breath: Her tachycardia secondary to inappropriate sinus tachycardia and management as per cardiology. And her chest pain shortness of breath is secondary to anxiety from palpitations. The possibly of PE is low further management of her PE she is mentioned in the HPI itself. Neck #2 chest pain: Resolved which is secondary to her tachycardia. Patient was a valid by cardiology. #3 hyperlipidemia #4 rule out pulmonary embolism or DVT #5 history of lupus along with lupus anticoagulant. Next and #2 diabetes mellitus
--- NOTE | 2017-03-25 15:51 | P.DS ---
Providers Date of admission: 03/25/17 04:35 Attending physician: Shannan Short Consults: 03/25/17 04:36 Consult Physician Routine Consulting Provider: Suresh Cruz Consult Reason/Comments: Pulmonary embolus Do you want consulting provider notified?: Yes Primary care physician: Elvira Morales [facility] Course: Please refer to HPI for further details. Patient will be discharged without anticoagulation were discussed with the radiologist again tomorrow and if there is still a concern of PE will send her prescription for new anticoagulants. At this point of time there is no significant evidence of pulmonary embolism after extensive review of CAT scan and patient bilateral lower limb Doppler as a negative for DVT. Patient will follow with Dr. Dow as outpatient Patient Condition at Discharge: Fair Plan - Discharge Summary New Discharge Prescriptions: No Action metFORMIN HCL [Glucophage] 500 mg PO AC-BID Pravastatin Sodium [Pravachol] 20 mg PO QAM Cholecalciferol [Vitamin D3] 1,000 unit PO DAILY Aspirin 81 mg PO DAILY Vitamin B Complex 1 cap PO DAILY Discharge Medication List metFORMIN HCL [Glucophage] 500 mg PO AC-BID 09/17/15 [History] Aspirin 81 mg PO DAILY 03/25/17 [History] Cholecalciferol [Vitamin D3] 1,000 unit PO DAILY 03/25/17 [History] Pravastatin Sodium [Pravachol] 20 mg PO QAM 03/25/17 [History] Vitamin B Complex 1 cap PO DAILY 03/25/17 [History] Follow up Appointment(s)/Referral(s): Johnny Armas MD [STAFF PHYSICIAN] - 6 Weeks Giovany Dow MD [STAFF PHYSICIAN] - 1 Week Elvira Morales MD [Primary Care Provider] - 3 Days Activity/Diet/Wound Care/Special Instructions: Patient should be therapeutic on anticoagulation without sinus tachycardia prior to discharge
[2017-03-25] MEDS ORDERED: BARIUM SULFATE 450 ML ORAL.SUSP BOTTLE PO ONE (21:00)
[2017-03-26] MEDS ORDERED: methylPREDNISolone SOD SUCCI 125 MG/2 ML VIAL IV ONE (01:30)
[2017-03-26] MEDS ORDERED: BARIUM SULFATE 450 ML ORAL.SUSP BOTTLE PO ONE (06:30)
[2017-03-26] MEDS ORDERED: diphenhydrAMINE 50 MG/ML 1 ML VIAL IVP ONE (06:30)
== END 2017-03-25 16:52 | disposition home or self-care (01) ==
LOC: EC 00:38 → INTOOBSV 04:35 → 6SEL 04:35
PROVIDERS: ADMIT Hospitalist; ATTEND Hospitalist
DX: R00.0 Tachycardia, unspecified (principal); D68.62 Lupus anticoagulant syndrome; M32.9 Systemic lupus erythematosus, unspecified; E11.9 Type 2 diabetes mellitus without complications; E78.5 Hyperlipidemia, unspecified; F06.4 Anxiety disorder due to known physiological condition; F17.210 Nicotine dependence, cigarettes, uncomplicated; G47.33 Obstructive sleep apnea (adult) (pediatric); J42 Unspecified chronic bronchitis; J45.909 Unspecified asthma, uncomplicated; M45.9 Ankylosing spondylitis of unspecified sites in spine; M94.0 Chondrocostal junction syndrome [Tietze]; G89.29 Other chronic pain; Z79.82 Long term (current) use of aspirin; Z79.84 Long term (current) use of oral hypoglycemic drugs; Z79.899 Other long term (current) drug therapy; Z88.2 Allergy status to sulfonamides; Z91.041 Radiographic dye allergy status
CPT/HCPCS: 96366; 96376; 96361; 96365; 96375; 99291; 36415; 93005; 93306; 85379; 80053; 83036; 83735; 84443; 84484; 85025; 85610; 85730; 81001; 71010; 93970; 71275; G0378; J1200; J1644 ×2; J2930; Q9967

== ENCOUNTER 2018-01-01 06:47 | Emergency (ER) | payer OTHER ==
[2018-01-01 06:53] VITALS: RESP 16; TEMP 98.3
[2018-01-01 07:34] LABS: Appearance,Urine Cloudy (Clear); Bilirubin,Urine Negative (Negative); Blood,Urine Large (Negative); Color,Urine Yellow; Glucose,Urine (UA) Negative (Negative); Ketones,Urine Negative (Negative); Leukocyte Esterase,Urine Large (Negative); Mucus,Urine Few /hpf; Nitrite,Urine Negative (Negative); Protein,Urine Trace (Negative); RBC,Urine >182 /hpf (0-5); Specific Gravity,Urine 1.018 (1.001-1.035); Squamous Epithelial Cell,Urine 15 /hpf (0-4); WBC,Urine 9 /hpf (0-5)
--- NOTE | 2018-01-01 07:42 | ED ---
General Adult HPI - General Chief complaint: Urogenital Stated complaint: Blood in urine Time Seen by Provider: 01/01/18 07:00 Source: patient, RN notes reviewed Mode of arrival: ambulatory Limitations: no limitations - History of Present Illness Initial comments: This is a 47-year-old female presents emergency Department complaining of hematuria and urinary frequency. Patient states she also has a little bit of pressure in the back. Patient states it started a few days ago and has continued to get worse. Patient states she has a sensation that she needs to go but has not been able to go a lot at any given time. Patient denies any abdominal pain. Patient denies any fever chills. Patient denies any history of kidney stones. Patient denies any nausea vomiting or diarrhea. Patient denies any other symptoms at this time. - Related Data Home Medications Medication Instructions Recorded Confirmed metFORMIN HCL [Glucophage] 500 mg PO AC-BID 09/17/15 01/01/18 Aspirin 81 mg PO DAILY 03/25/17 01/01/18 Cholecalciferol [Vitamin D3] 1,000 unit PO DAILY 03/25/17 01/01/18 Pravastatin Sodium [Pravachol] 20 mg PO DAILY 03/25/17 01/01/18 Vitamin B Complex 1 cap PO DAILY 03/25/17 01/01/18 Naproxen Sodium [Aleve] 220 mg PO HS 01/01/18 01/01/18 Previous Rx's Medication Instructions Recorded Ketorolac [Toradol] 10 mg PO Q6HR #15 tab 01/01/18 Allergies Allergy/AdvReac Type Severity Reaction Status Date / Time iodine Allergy Rash/Hives Verified 01/01/18 07:15 Sulfa (Sulfonamide Allergy Rash/Hives Verified 01/01/18 07:15 Antibiotics) Review of Systems ROS Statement: Those systems with pertinent positive or pertinent negative responses have been documented in the HPI. ROS Other: All systems not noted in ROS Statement are negative. Past Medical History Past Medical History: Diabetes Mellitus Additional Past Medical History / Comment(s): diet control diabetic, lumps in neck felt, enlarged salivary gland, tachycardia History of Any Multi-Drug Resistant Organisms: None Reported Past Surgical History: Cholecystectomy, Tonsillectomy, Tubal Ligation, Uterine Ablation Additional Past Surgical History / Comment(s): heel spur medical lupus, factor 5 Past Anesthesia/Blood Transfusion Reactions: No Reported Reaction Past Psychological History: Anxiety Smoking Status: Current every day smoker Past Alcohol Use History: Occasional Past Drug Use History: Marijuana - Past Family History Mother Family Medical History: No Reported History General Exam - General Exam Comments Initial Comments: GENERAL: Patient is well-developed and well-nourished. Patient is nontoxic and well- hydrated and is in mild distress. ENT: Neck is soft and supple. No significant lymphadenopathy is noted. Oropharynx is clear. Moist mucous membranes. Neck has full range of motion without eliciting any pain. EYES: The sclera were anicteric and conjunctiva were pink and moist. Extraocular movements were intact and pupils were equal round and reactive to light. Eyelids were unremarkable. PULMONARY: Unlabored respirations. Good breath sounds bilaterally. No audible rales rhonchi or wheezing was noted. CARDIOVASCULAR: There is a regular rate and rhythm without any murmurs gallops or rubs. ABDOMEN: Soft and nontender with normal bowel sounds. SKIN: Skin is clear with no lesions or rashes and otherwise unremarkable. NEUROLOGIC: Patient is alert and oriented x3. Cranial nerves II through XII are grossly intact. Motor and sensory are also intact. Normal speech, volume and content. Symmetrical smile. MUSCULOSKELETAL: Normal extremities with adequate strength and full range of motion. LYMPHATICS: No significant lymphadenopathy is noted PSYCHIATRIC: Normal psychiatric evaluation. Normal interpersonal interactions appears functionally intact in deals appropriately with others. No signs of depression. No signs of anxiety. No delusions. No hallucinations. Limitations: no limitations Course Vital Signs 01/01/18 06:51 Temperature 98.3 F Pulse Rate 113 H Respiratory 16 Rate Blood Pressure 164/82 O2 Sat by Pulse 99 Oximetry Medical Decision Making - Medical Decision Making Went back into reevaluate the patient she stated that she went to the bathroom felt kind of a pop sensation and then all of her pain went away. CAT scan showed a right sided ureterovesicular 2 mm stone with hydroureter - Lab Data Result diagrams: 01/01/18 07:50 01/01/18 07:50 Lab Results 01/01/18 01/01/18 01/01/18 Range/Units 07:10 07:50 07:50 WBC 11.4 H (3.8-10.6) k/uL RBC 4.56 (3.80-5.40) m/uL Hgb 13.3 (11.4-16.0) gm/dL Hct 40.3 (34.0-46.0) % MCV 88.5 (80.0-100.0) fL MCH 29.3 (25.0-35.0) pg MCHC 33.1 (31.0-37.0) g/dL RDW 14.1 (11.5-15.5) % Plt Count 326 (150-450) k/uL Neutrophils % 80 % Lymphocytes % 13 % Monocytes % 4 % Eosinophils % 1 % Basophils % 0 % Neutrophils # 9.1 H (1.3-7.7) k/uL Lymphocytes # 1.5 (1.0-4.8) k/uL Monocytes # 0.5 (0-1.0) k/uL Eosinophils # 0.1 (0-0.7) k/uL Basophils # 0.0 (0-0.2) k/uL Sodium 143 (137-145) mmol/L Potassium 4.3 (3.5-5.1) mmol/L Chloride 105 (98-107) mmol/L Carbon Dioxide 25 (22-30) mmol/L Anion Gap 13 mmol/L BUN 14 (7-17) mg/dL Creatinine 0.77 (0.52-1.04) mg/dL Est GFR (CKD-EPI)AfAm >90 (>60 ml/min/1.73 sqM) Est GFR (CKD-EPI)NonAf >90 (>60 ml/min/1.73 sqM) Glucose 152 H (74-99) mg/dL Calcium 9.5 (8.4-10.2) mg/dL Total Bilirubin 0.3 (0.2-1.3) mg/dL AST 26 (14-36) U/L ALT 39 (9-52) U/L Alkaline Phosphatase 92 (38-126) U/L Total Protein 6.6 (6.3-8.2) g/dL Albumin 4.2 (3.5-5.0) g/dL Urine Color Yellow Urine Appearance Cloudy H (Clear) Urine pH 5.0 (5.0-8.0) Ur Specific Edelstein 1.018 (1.001-1.035) Urine Protein Trace H (Negative) Urine Glucose (UA) Negative (Negative) Urine Ketones Negative (Negative) Urine Blood Large H (Negative) Urine Nitrite Negative (Negative) Urine Bilirubin Negative (Negative) Urine Urobilinogen 2.0 (<2.0) mg/dL Ur Leukocyte Esterase Large H (Negative) Urine RBC >182 H (0-5) /hpf Urine WBC 9 H (0-5) /hpf Ur Squamous Epith Cells 15 H (0-4) /hpf Urine Mucus Few H (None) /hpf Disposition Clinical Impression: Kidney stone Disposition: HOME SELF-CARE Condition: Good Instructions: Kidney Stones (ED) Prescriptions: Ketorolac [Toradol] 10 mg PO Q6HR #15 tab Is patient prescribed a controlled substance at d/c from ED?: No Referrals: Elvira Morales MD [Primary Care Provider] - 1-2 days Time of Disposition: 09:32
[2018-01-01] MEDS ORDERED: SODIUM CHLORIDE 0.9% 1,000 ML IV ONE (07:43)
[2018-01-01 08:02] LABS: Basophils % (A) 0 %; Eosinophils # (A) 0.1 k/uL (0-0.7); Eosinophils % (A) 1 %; HCT 40.3 % (34.0-46.0); HGB 13.3 gm/dL (11.4-16.0); Lymphocytes # (A) 1.5 k/uL (1.0-4.8); Lymphocytes % (A) 13 %; MCH 29.3 pg (25.0-35.0); MCHC 33.1 g/dL (31.0-37.0); MCV 88.5 fL (80.0-100.0); Mean Platelet Volume 6.3; Monocytes # (A) 0.5 k/uL (0-1.0); Monocytes % (A) 4 %; Neutrophils # (A) 9.1 k/uL (1.3-7.7); Neutrophils % (A) 80 %; Platelet Count 326 k/uL (150-450); RBC 4.56 m/uL (3.80-5.40); RDW 14.1 % (11.5-15.5); WBC 11.4 k/uL (3.8-10.6)
[2018-01-01 08:14] LABS: ALT 39 U/L (9-52); AST 26 U/L (14-36); Albumin 4.2 g/dL (3.5-5.0); Alkaline Phosphatase 92 U/L (38-126); Anion Gap 13 mmol/L; Blood Urea Nitrogen 14 mg/dL (7-17); Calcium 9.5 mg/dL (8.4-10.2); Carbon Dioxide 25 mmol/L (22-30); Chloride 105 mmol/L (98-107); Glucose 152 mg/dL (74-99); Potassium 4.3 mmol/L (3.5-5.1); Sodium 143 mmol/L (137-145); Total Bilirubin 0.3 mg/dL (0.2-1.3); Total Protein 6.6 g/dL (6.3-8.2)
--- NOTE | 2018-01-01 08:53 | CT ---
EXAMINATION TYPE: CT abdomen pelvis wo con DATE OF EXAM: 01/01/2018 COMPARISON: NONE INDICATION: Hematuria, painful urination DLP: 1015 mGycm, Automated exposure control for dose reduction was used. CONTRAST: mL of . Study performed without Oral Contrast TECHNIQUE: Axial images were obtained from above the diaphragm to the pubic rami in the axial plane a t 5 mm thick sections. Reconstructed images are reviewed on the computer in the coronal plane. FINDINGS: Limited CT sections are obtained the lung bases. The lung bases are clear. CT ABDOMEN: Liver: Normal Spleen: Large calcified granulomas within the mid spleen. Pancreas: Normal Adrenal glands: The adrenal glands are normal. Gallbladder: Surgically absent Kidneys: No masses are evident. Mild right hydronephrosis is present. Moderate right hydroureter is p resent extending to the mid pelvis. At the right ureterovesical junction there is a 0.2 cm calcificat ion. No additional renal or ureteral stones are identified. Phlebolith is likely present left hemipel vis. No cysts are present. Aorta: Vascular calcification is within the aorta. Inferior vena cava: Normal. CT PELVIS: Loops of bowel within the abdomen and pelvis are normal. Studies performed without oral contrast limiting bowel evaluation. Appendix: Normal as visualized. Urinary bladder: The right ureteral vesicle junction stone causing moderate right hydroureter and mil d right hydronephrosis measures 0.2 cm. Series 3 image 121. Genitourinary structures: Uterus is normal. Surgical clips are present. Adnexal regions appear within normal limits. Osseous structures: No suspicious lytic or sclerotic lesions. Sacroiliac joint degenerative changes a re present. Mild facet degenerative changes present L5-S1. IMPRESSIONS: 1. 0.2 cm right ureterovesical junction stone with mild right hydronephrosis and moderate right hydr oureter.
[2018-01-01 09:44] VITALS: BP 126/71; PULSE 95
== END 2018-01-01 09:35 | disposition home or self-care (01) ==
LOC: EC 06:47
DX: N20.2 Calculus of kidney with calculus of ureter (principal); N13.4 Hydroureter; E11.9 Type 2 diabetes mellitus without complications; F17.200 Nicotine dependence, unspecified, uncomplicated; Z79.82 Long term (current) use of aspirin; Z79.84 Long term (current) use of oral hypoglycemic drugs; Z79.1 Long term (current) use of non-steroidal anti-inflammatories (NSAID); Z79.899 Other long term (current) drug therapy; Z88.2 Allergy status to sulfonamides; Z88.8 Allergy status to other drugs, medicaments and biological substances; Z90.49 Acquired absence of other specified parts of digestive tract
CPT/HCPCS: 36415; 51798; 74176; 80053; 81001; 85025; 87086; 99284

== ENCOUNTER → 2018-07-02 | Outpatient (CLI) | payer OTHER ==
--- NOTE | 2018-07-02 09:35 | US ---
EXAMINATION TYPE: US thyroid st tissue head/neck DATE OF EXAM: 07/02/2018 COMPARISON: None CLINICAL HISTORY: E04.1 THYROID NODULE,E01.1 THYROMEGALY. GLAND SIZE: Right Lobe: 4.5 x 1.1 x 1.2 cm Overall Parenchyma: homogenous Left Lobe: 4.7 x 1.4 x 1.1 cm Overall Parenchyma: homogeneous Isthmus Thickness: 0.2 cm NODULES RIGHT: # of nodules measured on right: 1 1. 0.2 X 0.2 x 0.2 cm echogenic solid calcification at the lower pole with well-defined margins; . This nodule is wider than tall and shows no intranodular vascularity. Prior size: No previous LEFT: # of nodules measured on left: 2 1. 0.6 X 0.3 x 0.4 cm hypoechoic solid nodule at the lower pole with well-defined margins; . This nodule is wider than tall and shows intranodular vascularity. Prior size: No previous 2. 0.6 X 0.4 x 0.5 cm echogenic mixed nodule at the lower pole with well-defined margins; . This no dule is wider than tall and shows intranodular vascularity. Prior size: No previous ISTHMUS: # of nodules measured in the isthmus: 0 Bilateral neck scanned, no evidence of lymphadenopathy. IMPRESSION: Sub-6 mm bilateral thyroid nodules in a prominent but otherwise homogeneous thyroid gland. These do n ot meet criteria for fine-needle aspiration at this time.
== END | disposition home or self-care (01) ==
LOC: RADUSWWP 06:52
PROVIDERS: ATTEND Nurse Practitioner Family
DX: E04.2 Nontoxic multinodular goiter (principal); E06.9 Thyroiditis, unspecified
CPT/HCPCS: 36415; 76536; 84439; 86376

== ENCOUNTER 2018-10-26 08:05 | Emergency (ER) | payer BC, OTHER ==
[2018-10-26 08:12] VITALS: RESP 18
[2018-10-26] MEDS ORDERED: SODIUM CHLORIDE 0.9% 500 ML 500 ML IV STA (08:34)
[2018-10-26] MEDS ORDERED: diphenhydrAMINE 50 MG/ML 1 ML VIAL IVP STA (08:36)
[2018-10-26] MEDS ORDERED: FAMOTIDINE 20 MG/2 ML VIAL IV STA (08:44)
--- NOTE | 2018-10-26 08:57 | ED ---
Recheck HPI - General Chief Complaint: Recheck/Abnormal Lab/Rx Stated Complaint: hypertension, low O2 Time Seen by Provider: 10/26/18 08:28 Source: patient, RN notes reviewed Mode of arrival: wheelchair Limitations: no limitations - History of Present Illness Initial Comments: 48-year-old female presents emergency Department with chief complaint fell a blood pressure, elevated heart rate is feeling dizzy. Patient states she does have history of tachycardia in which she's had an ablation by Dr. Armas. Patient states her chest feels heavy but no exact chest pain. Denies any shortness of breath. 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 Patient states she just feels off, patient states she did feel dizzy and lightheaded. Patient states that has resolved. Patient states she checked her blood pressure at home which was elevated. Patient is not taking any medications for this. Patient states that her right leg is swollen. Patient also concerned about possible PE. Patient states that she supposed to have a CAT scan her chest because she's had cyst. - Related Data Home Medications Medication Instructions Recorded Confirmed metFORMIN HCL [Glucophage] 500 mg PO AC-BID 09/17/15 10/26/18 Pravastatin Sodium [Pravachol] 20 mg PO DAILY 03/25/17 10/26/18 Aspirin EC [Ecotrin] 325 mg PO DAILY 10/26/18 10/26/18 Allergies Allergy/AdvReac Type Severity Reaction Status Date / Time iodine Allergy Rash/Hives Verified 10/26/18 08:49 Sulfa (Sulfonamide Allergy Rash/Hives Verified 10/26/18 08:49 Antibiotics) Review of Systems ROS Statement: Those systems with pertinent positive or pertinent negative responses have been documented in the HPI. ROS Other: All systems not noted in ROS Statement are negative. Past Medical History Past Medical History: Diabetes Mellitus Additional Past Medical History / Comment(s): diet control diabetic, lumps in neck felt, enlarged salivary gland, tachycardia History of Any Multi-Drug Resistant Organisms: None Reported Past Surgical History: Cholecystectomy, Tonsillectomy, Tubal Ligation, Uterine Ablation Additional Past Surgical History / Comment(s): heel spur medical lupus, factor 5 Past Anesthesia/Blood Transfusion Reactions: No Reported Reaction Past Psychological History: Anxiety Smoking Status: Current every day smoker Past Alcohol Use History: Occasional Past Drug Use History: Marijuana - Past Family History Mother Family Medical History: No Reported History General Exam Limitations: no limitations General appearance: alert, in no apparent distress Head exam: Present: atraumatic, normocephalic, normal inspection Eye exam: Present: normal appearance, PERRL, EOMI. Absent: scleral icterus, conjunctival injection, periorbital swelling ENT exam: Present: normal exam, mucous membranes moist Neck exam: Present: normal inspection, full ROM. Absent: tenderness, meningismus, lymphadenopathy Respiratory exam: Present: normal lung sounds bilaterally. Absent: respiratory distress, wheezes, rales, rhonchi, stridor Cardiovascular Exam: Present: normal rhythm, tachycardia, normal heart sounds. Absent: systolic murmur, diastolic murmur, rubs, gallop, clicks Neurological exam: Present: alert, oriented X3, CN II-XII intact Skin exam: Present: warm, dry, intact, normal color. Absent: rash Course Vital Signs 10/26/18 10/26/18 10/26/18 08:08 08:30 09:00 Temperature 98.8 F Pulse Rate 122 H Respiratory 18 Rate Blood Pressure 157/87 139/77 143/87 O2 Sat by Pulse 100 97 Oximetry 10/26/18 10/26/18 10/26/18 09:30 10:00 10:30 Temperature Pulse Rate 93 96 Respiratory 16 18 Rate Blood Pressure 130/72 131/74 144/103 O2 Sat by Pulse 97 98 Oximetry 10/26/18 11:00 Temperature Pulse Rate Respiratory Rate Blood Pressure 151/87 O2 Sat by Pulse Oximetry Medical Decision Making - Medical Decision Making This a 48-year-old female presented emergency department concerns of hypertension tachycardia. Patient has no history of tachycardia. Patient's heart rate has improved emergency department with some IV fluids. Patient had CT of her chest rule out PE. Patient will be discharged at this time. She will follow-up with Dr. Armas cardiology and return parameters were discussed. - Lab Data Result diagrams: 10/26/18 09:48 10/26/18 09:48 Lab Results 10/26/18 10/26/18 10/26/18 Range/Units 09:48 09:48 09:48 WBC 10.9 H (3.8-10.6) k/uL RBC 4.84 (3.80-5.40) m/uL Hgb 13.4 (11.4-16.0) gm/dL Hct 40.9 (34.0-46.0) % MCV 84.4 (80.0-100.0) fL MCH 27.6 (25.0-35.0) pg MCHC 32.7 (31.0-37.0) g/dL RDW 15.5 (11.5-15.5) % Plt Count 379 (150-450) k/uL Neutrophils % 81 % Lymphocytes % 14 % Monocytes % 3 % Eosinophils % 1 % Basophils % 0 % Neutrophils # 8.8 H (1.3-7.7) k/uL Lymphocytes # 1.5 (1.0-4.8) k/uL Monocytes # 0.3 (0-1.0) k/uL Eosinophils # 0.1 (0-0.7) k/uL Basophils # 0.0 (0-0.2) k/uL PT 9.5 (9.0-12.0) sec INR 0.9 (<1.2) APTT 30.4 H (22.0-30.0) sec Sodium 140 (137-145) mmol/L Potassium 4.4 (3.5-5.1) mmol/L Chloride 108 H (98-107) mmol/L Carbon Dioxide 26 (22-30) mmol/L Anion Gap 6 mmol/L BUN 11 (7-17) mg/dL Creatinine 0.66 (0.52-1.04) mg/dL Est GFR (CKD-EPI)AfAm >90 (>60 ml/min/1.73 sqM) Est GFR (CKD-EPI)NonAf >90 (>60 ml/min/1.73 sqM) Glucose 125 H (74-99) mg/dL Calcium 9.6 (8.4-10.2) mg/dL Magnesium 2.0 (1.6-2.3) mg/dL Total Bilirubin 0.5 (0.2-1.3) mg/dL AST 22 (14-36) U/L ALT 37 (9-52) U/L Alkaline Phosphatase 101 (38-126) U/L Troponin I (0.000-0.034) ng/mL Total Protein 7.0 (6.3-8.2) g/dL Albumin 4.3 (3.5-5.0) g/dL 04/02/19 Range/Units 09:48 WBC (3.8-10.6) k/uL RBC (3.80-5.40) m/uL Hgb (11.4-16.0) gm/dL Hct (34.0-46.0) % MCV (80.0-100.0) fL MCH (25.0-35.0) pg MCHC (31.0-37.0) g/dL RDW (11.5-15.5) % Plt Count (150-450) k/uL Neutrophils % % Lymphocytes % % Monocytes % % Eosinophils % % Basophils % % Neutrophils # (1.3-7.7) k/uL Lymphocytes # (1.0-4.8) k/uL Monocytes # (0-1.0) k/uL Eosinophils # (0-0.7) k/uL Basophils # (0-0.2) k/uL PT (9.0-12.0) sec INR (<1.2) APTT (22.0-30.0) sec Sodium (137-145) mmol/L Potassium (3.5-5.1) mmol/L Chloride (98-107) mmol/L Carbon Dioxide (22-30) mmol/L Anion Gap mmol/L BUN (7-17) mg/dL Creatinine (0.52-1.04) mg/dL Est GFR (CKD-EPI)AfAm (>60 ml/min/1.73 sqM) Est GFR (CKD-EPI)NonAf (>60 ml/min/1.73 sqM) Glucose (74-99) mg/dL Calcium (8.4-10.2) mg/dL Magnesium (1.6-2.3) mg/dL Total Bilirubin (0.2-1.3) mg/dL AST (14-36) U/L ALT (9-52) U/L Alkaline Phosphatase (38-126) U/L Troponin I <0.012 (0.000-0.034) ng/mL Total Protein (6.3-8.2) g/dL Albumin (3.5-5.0) g/dL - EKG Data EKG Comments: EKG performed at 942 sinus tachycardia rate of 105 WI 166 QRS 76 QT status QTC 350/[address] elevation or depression Disposition Clinical Impression: Paroxysmal tachycardia Disposition: HOME SELF-CARE Condition: Stable Instructions (If sedation given, give patient instructions): Tachycardia (ED) Additional Instructions: Please return to the Emergency Department if symptoms worsen or any other concerns. Is patient prescribed a controlled substance at d/c from ED?: No Referrals: Elvira Morales MD [Primary Care Provider] - 1-2 days
--- NOTE | 2018-10-26 09:42 | US ---
EXAMINATION TYPE: US venous doppler duplex LE RT DATE OF EXAM: 10/26/2018 9:32 AM COMPARISON: NONE CLINICAL HISTORY: Pain. SIDE PERFORMED: Right TECHNIQUE: The lower extremity deep venous system is examined utilizing real time linear array sonog mary lou with graded compression, doppler sonography and color-flow sonography. VESSELS IMAGED: External Iliac Vein (EIV) Common Femoral Vein Deep Femoral Vein Greater Saphenous Vein * Femoral Vein Popliteal Vein Small Saphenous Vein * Proximal Calf Veins (* superficial vessels) Right Leg: Negative for DVT IMPRESSION: 1. No diagnostic evidence of DVT as visualized.
[2018-10-26 09:59] LABS: Basophils % (A) 0 %; Eosinophils # (A) 0.1 k/uL (0-0.7); Eosinophils % (A) 1 %; HCT 40.9 % (34.0-46.0); HGB 13.4 gm/dL (11.4-16.0); Lymphocytes # (A) 1.5 k/uL (1.0-4.8); Lymphocytes % (A) 14 %; MCH 27.6 pg (25.0-35.0); MCHC 32.7 g/dL (31.0-37.0); MCV 84.4 fL (80.0-100.0); Mean Platelet Volume 7.3; Monocytes # (A) 0.3 k/uL (0-1.0); Monocytes % (A) 3 %; Neutrophils # (A) 8.8 k/uL (1.3-7.7); Neutrophils % (A) 81 %; Platelet Count 379 k/uL (150-450); RBC 4.84 m/uL (3.80-5.40); RDW 15.5 % (11.5-15.5); WBC 10.9 k/uL (3.8-10.6)
[2018-10-26 10:08] LABS: ALT 37 U/L (9-52); AST 22 U/L (14-36); Albumin 4.3 g/dL (3.5-5.0); Alkaline Phosphatase 101 U/L (38-126); Anion Gap 6 mmol/L; Blood Urea Nitrogen 11 mg/dL (7-17); Calcium 9.6 mg/dL (8.4-10.2); Carbon Dioxide 26 mmol/L (22-30); Chloride 108 mmol/L (98-107); Glucose 125 mg/dL (74-99); Potassium 4.4 mmol/L (3.5-5.1); Sodium 140 mmol/L (137-145); Total Bilirubin 0.5 mg/dL (0.2-1.3)
[2018-10-26 10:24] LABS: INR 0.9 (<1.2); Partial Thromboplastin Time 30.4 sec (22.0-30.0); Prothrombin Time 9.5 sec (9.0-12.0)
--- NOTE | 2018-10-26 11:01 | CT ---
EXAMINATION TYPE: CT chest angio for PE DATE OF EXAM: 10/26/2018 COMPARISON: 03/25/2017 HISTORY: 48-year-old female Rib and shoulder pain, pain while breathing TECHNIQUE: Contiguous axial scanning of the chest performed with IV Contrast, patient injected with 1 00, wasted 20 mL of Isovue 370. Coronal/sagittal MIP reconstructions performed. CT DLP: 342 mGycm Automated exposure control for dose reduction was used. FINDINGS: Heart normal size without pericardial effusion. Aorta normal caliber with conventional branching anatomy. A couple prominent AP window lymph nodes measure up to 7 mm, unchanged. Satisfactory opacification of the pulmonary arterial system without evidence for pulmonary embolus. No thoracic lymphadenopathy by CT size criteria. No consolidation or pleural effusion seen. Calcified granuloma posterior right base. Tiny 3 mm right midlung pulmonary nodule axial image 89 is unchanged. Lingular calcified granuloma un changed. Calcified granuloma in the spleen. Cholecystectomy clips. Bones: Mild endplate spondylosis mid to lower thoracic spine. IMPRESSION: 1. NO EVIDENCE FOR PULMONARY EMBOLUS. 2. PRIOR GRANULOMATOUS DISEASE. NO ACUTE PULMONARY PROCESS SEEN.
[2018-10-26 12:29] VITALS: BP 151/87; PULSE 96
[2018-10-26 12:30] VITALS: TEMP 98.6
== END 2018-10-26 11:37 | disposition home or self-care (01) ==
LOC: EC 08:05
DX: I47.9 Paroxysmal tachycardia, unspecified (principal); R03.0 Elevated blood-pressure reading, without diagnosis of hypertension; R09.02 Hypoxemia; M79.89 Other specified soft tissue disorders; E11.9 Type 2 diabetes mellitus without complications; F17.200 Nicotine dependence, unspecified, uncomplicated; Z79.84 Long term (current) use of oral hypoglycemic drugs; Z79.82 Long term (current) use of aspirin; Z79.899 Other long term (current) drug therapy; Z91.048 Other nonmedicinal substance allergy status; Z88.2 Allergy status to sulfonamides
CPT/HCPCS: 36415; 71275; 80053; 83735; 84484; 85025; 85610; 85730; 93005; 96361; 96374; 96375; 99284

== ENCOUNTER → 2018-11-26 | Outpatient (CLI) | payer BC ==
--- NOTE | 2018-11-26 14:33 | MM ---
Reason for exam: screening (asymptomatic). Last mammogram was performed 2 years and 4 months ago. History: Family history of breast cancer in maternal grandmother. Physical Findings: A clinical breast exam by your physician is recommended on an annual basis and results should be correlated with mammographic findings. MG 3D Screening Mammo W/Cad Bilateral CC and MLO view(s) were taken. Prior study comparison: July 30, 2016, bilateral MG screening mammo w CAD. October 17, 2014, right breast MG work up mamm w CAD RT. There are scattered fibroglandular densities. There is a tiny chronic nodularity in the left breast. There is no discrete abnormality. ASSESSMENT: Negative, BI-RAD 1 RECOMMENDATION: Routine screening mammogram of both breasts in 1 year.
== END | disposition home or self-care (01) ==
LOC: RADMAMWWP 10:11
PROVIDERS: ATTEND Family Medicine
DX: Z12.31 Encounter for screening mammogram for malignant neoplasm of breast (principal)
CPT/HCPCS: 77063; 77067

== ENCOUNTER → 2019-02-05 | Outpatient (CLI) | payer BC ==
[2019-02-05 08:42] LABS: Basophils % (A) 0 %; Eosinophils # (A) 0.2 k/uL (0-0.7); Eosinophils % (A) 1 %; HCT 40.7 % (34.0-46.0); HGB 12.9 gm/dL (11.4-16.0); Lymphocytes # (A) 1.9 k/uL (1.0-4.8); Lymphocytes % (A) 16 %; MCH 27.9 pg (25.0-35.0); MCHC 31.6 g/dL (31.0-37.0); MCV 88.6 fL (80.0-100.0); Mean Platelet Volume 6.6; Monocytes # (A) 0.5 k/uL (0-1.0); Monocytes % (A) 4 %; Neutrophils # (A) 9.2 k/uL (1.3-7.7); Neutrophils % (A) 77 %; Platelet Count 359 k/uL (150-450); RDW 15.9 % (11.5-15.5); WBC 11.9 k/uL (3.8-10.6)
--- NOTE | 2019-02-05 08:57 | XR ---
EXAMINATION TYPE: XR chest 2V DATE OF EXAM: 02/05/2019 COMPARISON: Chest x-ray March 25, 2017. CTA chest October 26, 2018. HISTORY: History of COPD with shortness of breath TECHNIQUE: Frontal and lateral views of the chest are obtained. FINDINGS: There is no focal air space opacity, pleural effusion, or pneumothorax seen. The cardiac silhouette size is within normal limits. The osseous structures are intact. IMPRESSION: No acute cardiopulmonary process currently.
[2019-02-05 17:06] LABS: African American GFR (CKD) 99.6 (60.0-200.0); Albumin 4.6 g/dL (3.80-4.90); Albumin/Globulin Ratio 2.56 (1.60-3.17); Anion Gap 7.3 mmol/L (4.00-12.00); BUN/Creat Ratio 13.75 Ratio (12.00-20.00); Calcium 9.4 mg/dL (8.7-10.3); Carbon Dioxide 26.7 mmol/L (21.6-31.8); Globulin 1.8 g/dL (1.6-3.3); Potassium 4.7 mmol/L (3.5-5.5); Total Bilirubin 0.3 mg/dL (0.2-1.2); Total Protein 6.4 g/dL (6.2-8.2)
== END | disposition home or self-care (01) ==
LOC: LABWHC1 08:15
PROVIDERS: ATTEND Physician Assistant Medical
DX: R06.02 Shortness of breath (principal); R60.0 Localized edema; J44.9 Chronic obstructive pulmonary disease, unspecified
CPT/HCPCS: 36415; 71046; 80053; 84443; 85025; 85379

== ENCOUNTER → 2019-08-22 | Outpatient (CLI) | payer BC ==
--- NOTE | 2019-08-23 08:32 | US ---
EXAMINATION TYPE: US thyroid st tissue head/neck DATE OF EXAM: 08/22/2019 COMPARISON: 07/02/2018 CLINICAL HISTORY: E04.1 Nontoxic single thyroid nodule. GLAND SIZE: Right Lobe: 4.3 x 1.7 x 1.3 cm Overall Parenchyma: homogenous Left Lobe: 5.1 x 1.7 x 1.5 cm Overall Parenchyma: homogeneous Isthmus Thickness: 0.3 cm NODULES RIGHT: # of nodules measured on right: 1 1. 0.2 X 0.1 x 0.2 cm echogenic solid nodule at the lower pole with margins; . This nodule is and shows . Prior size: 0.2 x 0.2 x 0.2 cm LEFT: # of nodules measured on left: 2 1. 0.6 X 0.4 x 0.5cm isoechoic mixed nodule at the mid pole with well-defined margins. This nodule is wider than tall and shows intranodular vascularity. Prior size: 0.6 x 0.3 x 0.4 cm 2. 0.6 X 0.5 x 0.5 cm hypoechoic solid nodule at the lower pole with well-defined margins. This nod ule is wider than tall and shows no intranodular vascularity. Prior size: 0.6 x 0.4 x 0.5 cm ISTHMUS: # of nodules measured in the isthmus: 0 Bilateral neck scanned, no evidence of lymphadenopathy. IMPRESSION: Enlarged multinodular thyroid goiter. Bilateral subcentimeter thyroid nodules are similar in size to the prior exam.
== END | disposition home or self-care (01) ==
LOC: RADUSWWP 16:14
PROVIDERS: ATTEND Otolaryngology
DX: E04.2 Nontoxic multinodular goiter (principal)
CPT/HCPCS: 76536

== ENCOUNTER → 2020-04-16 | Outpatient (CLI) | payer BC ==
--- NOTE | 2020-04-18 09:46 | MM ---
Reason for exam: screening (asymptomatic). Last mammogram was performed 1 year and 5 months ago. History: Family history of breast cancer in maternal grandmother. Physical Findings: A clinical breast exam by your physician is recommended on an annual basis and results should be correlated with mammographic findings. MG Screening Mammo w CAD Bilateral CC and MLO view(s) were taken. Prior study comparison: November 26, 2018, bilateral MG 3d screening mammo w/cad. July 30, 2016, bilateral MG screening mammo w CAD. The breast tissue is almost entirely fat. No significant changes when compared with prior studies. ASSESSMENT: Benign, BI-RAD 2 RECOMMENDATION: Routine screening mammogram of both breasts in 1 year.
== END | disposition home or self-care (01) ==
LOC: RADMAMWWP 15:51
PROVIDERS: ATTEND Family Medicine
DX: Z12.31 Encounter for screening mammogram for malignant neoplasm of breast (principal)
CPT/HCPCS: 77067

== ENCOUNTER 2020-05-03 07:36 | Observation (INO) | payer BC ==
[2020-05-03 07:43] VITALS: RESP 18
[2020-05-03] MEDS ORDERED: SODIUM CHLORIDE 0.9% 1,000 ML IV STA (07:55)
--- NOTE | 2020-05-03 08:01 | ED ---
General Adult HPI - General Chief complaint: Weakness Stated complaint: not feeling right Time Seen by Provider: 05/03/20 07:47 Source: patient, RN notes reviewed, old records reviewed Mode of arrival: ambulatory Limitations: no limitations - History of Present Illness Initial comments: Patient is a 30-year-old female who presents emergency department today for evaluation with complaints of waking up feeling "drunk". Patient states that she was not drinking last night. She states that she just feels off and somewhat confused. Patient reports that she has history of factor V disorder. She states that she's also been having intermittent chest pain since the past week and a half after her PCP changing her metformin. reports that she has had intermittent headaches but denies any current headache. Patient denies any nausea or vomiting. She denies any visual changes or room spinning sensation. - Related Data Home Medications Medication Instructions Recorded Confirmed metFORMIN HCL [Glucophage] 1,000 mg PO AC-BID 09/17/15 05/03/20 Pravastatin Sodium [Pravachol] 20 mg PO HS 03/25/17 05/03/20 Aspirin EC [Ecotrin] 325 mg PO DAILY 10/26/18 05/03/20 Cholecalciferol [Vitamin D3 (25 1,000 unit PO DAILY 05/03/20 05/03/20 Mcg = 1000 Iu)] Allergies Allergy/AdvReac Type Severity Reaction Status Date / Time Iodinated Contrast Media AdvReac Rash/Hives Verified 05/03/20 08:36 iodine AdvReac Rash/Hives Verified 05/03/20 08:36 Sulfa (Sulfonamide AdvReac Rash/Hives Verified 05/03/20 08:36 Antibiotics) Review of Systems ROS Statement: Those systems with pertinent positive or pertinent negative responses have been documented in the HPI. ROS Other: All systems not noted in ROS Statement are negative. Past Medical History Past Medical History: Diabetes Mellitus Additional Past Medical History / Comment(s): diet control diabetic, enlarged salivary gland, tachycardia, Factor 5, Lupus History of Any Multi-Drug Resistant Organisms: None Reported Past Surgical History: Cholecystectomy, Tonsillectomy, Tubal Ligation, Uterine Ablation Additional Past Surgical History / Comment(s): heel spur Past Anesthesia/Blood Transfusion Reactions: No Reported Reaction Past Psychological History: Anxiety Smoking Status: Former smoker Past Alcohol Use History: None Reported Past Drug Use History: Marijuana - Past Family History Mother Family Medical History: No Reported History General Exam - General Exam Comments Initial Comments: 50-year-old female. Alert and oriented. No acute distress Limitations: no limitations General appearance: alert, in no apparent distress Head exam: Present: atraumatic, normocephalic, normal inspection Eye exam: Present: normal appearance, PERRL, EOMI. Absent: scleral icterus, conjunctival injection, periorbital swelling ENT exam: Present: normal exam Neck exam: Present: normal inspection. Absent: tenderness, meningismus, lymphadenopathy Respiratory exam: Present: normal lung sounds bilaterally. Absent: respiratory distress, wheezes, rales, rhonchi, stridor Cardiovascular Exam: Present: regular rate, normal rhythm, normal heart sounds. Absent: systolic murmur, diastolic murmur, rubs, gallop, clicks GI/Abdominal exam: Present: soft, normal bowel sounds. Absent: distended, tenderness, guarding, rebound, rigid Extremities exam: Present: normal inspection, full ROM, normal capillary refill. Absent: tenderness, pedal edema, joint swelling, calf tenderness Back exam: Present: normal inspection Neurological exam: Present: alert, oriented X3, CN II-XII intact, normal gait Expanded Patient oriented to: Present: person, place, time Speech: Present: fluid speech Cranial nerves: EOM's Intact: Normal Cerebellar function: Finger to Nose: Normal Upper motor neuron: Pronator Drift: Normal Sensory exam: Upper Extremity Light Touch: Normal, Lower Extremity Light Touch: Normal Motor strength exam: RUE: 5, LUE: 5, RLE: 5, LLE: 5 Eye Response: (4) open spontaneously Motor Response: (6) obeys commands Verbal Response: (5) oriented Tom Total: 15 Psychiatric exam: Present: normal affect, normal mood Skin exam: Present: warm, dry, intact, normal color. Absent: rash Course Vital Signs 05/03/20 07:38 Temperature 98.6 F Pulse Rate 102 H Respiratory 18 Rate Blood Pressure 148/79 O2 Sat by Pulse 100 Oximetry EKG Findings - EKG Comments: EKG Findings:: EKG performed at 7:52 AM shows sinus tachycardia otherwise generally QT. Ventricular rate of 102/m. General is 164. QRS duration is 78 ms. QT QTc is 366/477 ms. Medical Decision Making - Medical Decision Making This is a 50-year-old female who presents the emergency room today with complaints of "waking up feeling drunk". Patient states she's also been having some chest pain last week. Patient had no acute neurological deficits. Neuro Intact and GCS of 15. Patient reports that her was home did not witness her having slurred speech or any other neurological deficits. She just came here for evaluation. Just complaining of some palpitations. Patient's labs reviewed relatively unremarkable aside from an elevated d-dimer. CT is negative for PE. Patient is reevaluated states she has no further chest pain with intermittent description discussed case with Dr. Fritz. Recommended admission for chest pain observation. - Lab Data Result diagrams: 05/03/20 08:04 05/03/20 08:04 Lab Results 05/03/20 05/03/20 05/03/20 Range/Units 08:04 08:04 08:04 WBC 8.0 (3.8-10.6) k/uL RBC 4.41 (3.80-5.40) m/uL Hgb 12.3 (11.4-16.0) gm/dL Hct 38.3 (34.0-46.0) % MCV 86.8 (80.0-100.0) fL MCH 27.8 (25.0-35.0) pg MCHC 32.0 (31.0-37.0) g/dL RDW 14.5 (11.5-15.5) % Plt Count 324 (150-450) k/uL Neutrophils % 77 % Lymphocytes % 17 % Monocytes % 4 % Eosinophils % 2 % Basophils % 0 % Neutrophils # 6.2 (1.3-7.7) k/uL Lymphocytes # 1.3 (1.0-4.8) k/uL Monocytes # 0.3 (0-1.0) k/uL Eosinophils # 0.1 (0-0.7) k/uL Basophils # 0.0 (0-0.2) k/uL PT 9.3 (9.0-12.0) sec INR 0.9 (<1.2) APTT 28.4 (22.0-30.0) sec D-Dimer 0.76 H (<0.60) mg/L FEU Sodium (137-145) mmol/L Potassium (3.5-5.1) mmol/L Chloride (98-107) mmol/L Carbon Dioxide (22-30) mmol/L Anion Gap mmol/L BUN (7-17) mg/dL Creatinine (0.52-1.04) mg/dL Est GFR (CKD-EPI)AfAm (>60 ml/min/1.73 sqM) Est GFR (CKD-EPI)NonAf (>60 ml/min/1.73 sqM) Glucose (74-99) mg/dL Plasma Lactic Acid Hermann (0.7-2.0) mmol/L Calcium (8.4-10.2) mg/dL Magnesium (1.6-2.3) mg/dL Total Bilirubin (0.2-1.3) mg/dL AST (14-36) U/L ALT (4-34) U/L Alkaline Phosphatase (38-126) U/L Troponin I (0.000-0.034) ng/mL NT-Pro-B Natriuret Pep pg/mL Total Protein (6.3-8.2) g/dL Albumin (3.5-5.0) g/dL Urine Color Light Yellow Urine Appearance Clear (Clear) Urine pH 6.0 (5.0-8.0) Ur Specific Taylor 1.009 (1.001-1.035) Urine Protein Negative (Negative) Urine Glucose (UA) Negative (Negative) Urine Ketones 1+ H (Negative) Urine Blood Negative (Negative) Urine Nitrite Negative (Negative) Urine Bilirubin Negative (Negative) Urine Urobilinogen <2.0 (<2.0) mg/dL Ur Leukocyte Esterase Negative (Negative) Urine Opiates Screen (NotDetected) Ur Oxycodone Screen (NotDetected) Urine Methadone Screen (NotDetected) Ur Propoxyphene Screen (NotDetected) Ur Barbiturates Screen (NotDetected) U Tricyclic Antidepress (NotDetected) Ur Phencyclidine Scrn (NotDetected) Ur Amphetamines Screen (NotDetected) U Methamphetamines Scrn (NotDetected) U Benzodiazepines Scrn (NotDetected) Urine Cocaine Screen (NotDetected) U Marijuana (THC) Screen (NotDetected) 05/03/20 05/03/20 05/03/20 Range/Units 08:04 08:04 08:04 WBC (3.8-10.6) k/uL RBC (3.80-5.40) m/uL Hgb (11.4-16.0) gm/dL Hct (34.0-46.0) % MCV (80.0-100.0) fL MCH (25.0-35.0) pg MCHC (31.0-37.0) g/dL RDW (11.5-15.5) % Plt Count (150-450) k/uL Neutrophils % % Lymphocytes % % Monocytes % % Eosinophils % % Basophils % % Neutrophils # (1.3-7.7) k/uL Lymphocytes # (1.0-4.8) k/uL Monocytes # (0-1.0) k/uL Eosinophils # (0-0.7) k/uL Basophils # (0-0.2) k/uL PT (9.0-12.0) sec INR (<1.2) APTT (22.0-30.0) sec D-Dimer (<0.60) mg/L FEU Sodium 138 (137-145) mmol/L Potassium 4.2 (3.5-5.1) mmol/L Chloride 104 (98-107) mmol/L Carbon Dioxide 28 (22-30) mmol/L Anion Gap 6 mmol/L BUN 11 (7-17) mg/dL Creatinine 0.68 (0.52-1.04) mg/dL Est GFR (CKD-EPI)AfAm >90 (>60 ml/min/1.73 sqM) Est GFR (CKD-EPI)NonAf >90 (>60 ml/min/1.73 sqM) Glucose 141 H (74-99) mg/dL Plasma Lactic Acid Hermann 1.2 (0.7-2.0) mmol/L Calcium 9.1 (8.4-10.2) mg/dL Magnesium 2.1 (1.6-2.3) mg/dL Total Bilirubin 0.3 (0.2-1.3) mg/dL AST 36 (14-36) U/L ALT 39 H (4-34) U/L Alkaline Phosphatase 86 (38-126) U/L Troponin I <0.012 (0.000-0.034) ng/mL NT-Pro-B Natriuret Pep pg/mL Total Protein 6.9 (6.3-8.2) g/dL Albumin 4.3 (3.5-5.0) g/dL Urine Color Urine Appearance (Clear) Urine pH (5.0-8.0) Ur Specific Taylor (1.001-1.035) Urine Protein (Negative) Urine Glucose (UA) (Negative) Urine Ketones (Negative) Urine Blood (Negative) Urine Nitrite (Negative) Urine Bilirubin (Negative) Urine Urobilinogen (<2.0) mg/dL Ur Leukocyte Esterase (Negative) Urine Opiates Screen (NotDetected) Ur Oxycodone Screen (NotDetected) Urine Methadone Screen (NotDetected) Ur Propoxyphene Screen (NotDetected) Ur Barbiturates Screen (NotDetected) U Tricyclic Antidepress (NotDetected) Ur Phencyclidine Scrn (NotDetected) Ur Amphetamines Screen (NotDetected) U Methamphetamines Scrn (NotDetected) U Benzodiazepines Scrn (NotDetected) Urine Cocaine Screen (NotDetected) U Marijuana (THC) Screen (NotDetected) 05/03/20 05/03/20 Range/Units 08:04 08:04 WBC (3.8-10.6) k/uL RBC (3.80-5.40) m/uL Hgb (11.4-16.0) gm/dL Hct (34.0-46.0) % MCV (80.0-100.0) fL MCH (25.0-35.0) pg MCHC (31.0-37.0) g/dL RDW (11.5-15.5) % Plt Count (150-450) k/uL Neutrophils % % Lymphocytes % % Monocytes % % Eosinophils % % Basophils % % Neutrophils # (1.3-7.7) k/uL Lymphocytes # (1.0-4.8) k/uL Monocytes # (0-1.0) k/uL Eosinophils # (0-0.7) k/uL Basophils # (0-0.2) k/uL PT (9.0-12.0) sec INR (<1.2) APTT (22.0-30.0) sec D-Dimer (<0.60) mg/L FEU Sodium (137-145) mmol/L Potassium (3.5-5.1) mmol/L Chloride (98-107) mmol/L Carbon Dioxide (22-30) mmol/L Anion Gap mmol/L BUN (7-17) mg/dL Creatinine (0.52-1.04) mg/dL Est GFR (CKD-EPI)AfAm (>60 ml/min/1.73 sqM) Est GFR (CKD-EPI)NonAf (>60 ml/min/1.73 sqM) Glucose (74-99) mg/dL Plasma Lactic Acid Hermann (0.7-2.0) mmol/L Calcium (8.4-10.2) mg/dL Magnesium (1.6-2.3) mg/dL Total Bilirubin (0.2-1.3) mg/dL AST (14-36) U/L ALT (4-34) U/L Alkaline Phosphatase (38-126) U/L Troponin I (0.000-0.034) ng/mL NT-Pro-B Natriuret Pep 28 pg/mL Total Protein (6.3-8.2) g/dL Albumin (3.5-5.0) g/dL Urine Color Urine Appearance (Clear) Urine pH (5.0-8.0) Ur Specific Taylor (1.001-1.035) Urine Protein (Negative) Urine Glucose (UA) (Negative) Urine Ketones (Negative) Urine Blood (Negative) Urine Nitrite (Negative) Urine Bilirubin (Negative) Urine Urobilinogen (<2.0) mg/dL Ur Leukocyte Esterase (Negative) Urine Opiates Screen Not Detected (NotDetected) Ur Oxycodone Screen Not Detected (NotDetected) Urine Methadone Screen Not Detected (NotDetected) Ur Propoxyphene Screen Not Detected (NotDetected) Ur Barbiturates Screen Not Detected (NotDetected) U Tricyclic Antidepress Not Detected (NotDetected) Ur Phencyclidine Scrn Not Detected (NotDetected) Ur Amphetamines Screen Not Detected (NotDetected) U Methamphetamines Scrn Not Detected (NotDetected) U Benzodiazepines Scrn Not Detected (NotDetected) Urine Cocaine Screen Not Detected (NotDetected) U Marijuana (THC) Screen Detected H (NotDetected) - Radiology Data Radiology results: report reviewed No acute cardio pulmonary processes. No significant change from prior. No CT evidence for acute PE.This is new acute pulmonary process. Disposition Clinical Impression: Chest pain Disposition: ADMITTED IP TO THIS HOSP Condition: Stable Is patient prescribed a controlled substance at d/c from ED?: No Referrals: Elvira Morales MD [Primary Care Provider] - 1-2 days Time of Disposition: 11:27
[2020-05-03 08:32] LABS: Basophils % (A) 0 %; Eosinophils # (A) 0.1 k/uL (0-0.7); Eosinophils % (A) 2 %; HCT 38.3 % (34.0-46.0); HGB 12.3 gm/dL (11.4-16.0); Lymphocytes # (A) 1.3 k/uL (1.0-4.8); Lymphocytes % (A) 17 %; MCH 27.8 pg (25.0-35.0); MCV 86.8 fL (80.0-100.0); Mean Platelet Volume 7.1; Monocytes # (A) 0.3 k/uL (0-1.0); Monocytes % (A) 4 %; Neutrophils # (A) 6.2 k/uL (1.3-7.7); Neutrophils % (A) 77 %; Platelet Count 324 k/uL (150-450); RBC 4.41 m/uL (3.80-5.40); RDW 14.5 % (11.5-15.5)
[2020-05-03 08:40] LABS: Appearance,Urine Clear (Clear); Bilirubin,Urine Negative (Negative); Blood,Urine Negative (Negative); Color,Urine Light Yellow; Glucose,Urine (UA) Negative (Negative); Ketones,Urine 1+ (Negative); Leukocyte Esterase,Urine Negative (Negative); Nitrite,Urine Negative (Negative); Protein,Urine Negative (Negative); Specific Gravity,Urine 1.009 (1.001-1.035); Urobilinogen,Urine <2.0 mg/dL (<2.0)
[2020-05-03 08:46] LABS: Potassium 4.2 mmol/L (3.5-5.1)
[2020-05-03 08:47] LABS: ALT 39 U/L (4-34); AST 36 U/L (14-36); African American GFR (CKD) >90 (>60 ml/min/1.73 sqM); Albumin 4.3 g/dL (3.5-5.0); Alkaline Phosphatase 86 U/L (38-126); Anion Gap 6 mmol/L; Blood Urea Nitrogen 11 mg/dL (7-17); Calcium 9.1 mg/dL (8.4-10.2); Carbon Dioxide 28 mmol/L (22-30); Chloride 104 mmol/L (98-107); Glucose 141 mg/dL (74-99); Magnesium 2.1 mg/dL (1.6-2.3); Non-African American GFR(CKD) >90 (>60 ml/min/1.73 sqM); Sodium 138 mmol/L (137-145); Total Bilirubin 0.3 mg/dL (0.2-1.3); Total Protein 6.9 g/dL (6.3-8.2)
[2020-05-03 08:52] LABS: Amphetamine Screen,Urine Not Detected (NotDetected); Benzodiazepines Screen,Urine Not Detected (NotDetected); Cocaine Screen,Urine Not Detected (NotDetected); INR 0.9 (<1.2); Methadone Screen, Urine Not Detected (NotDetected); Opiate Screen,Urine Not Detected (NotDetected); Partial Thromboplastin Time 28.4 sec (22.0-30.0); Phencyclidine Screen,Urine Not Detected (NotDetected); Prothrombin Time 9.3 sec (9.0-12.0); Tricyclic Antidepressant,Urine Not Detected (NotDetected); Urn Cannabinoid Scrn Detected (NotDetected)
[2020-05-03 08:53] LABS: Barbiturate Screen,Urine Not Detected (NotDetected); Oxycodone Screen, Urine Not Detected (NotDetected)
--- NOTE | 2020-05-03 08:56 | XR ---
EXAMINATION TYPE: XR chest 2V DATE OF EXAM: 05/03/2020 COMPARISON: Chest x-ray February 05, 2019 HISTORY: Dizziness and weakness. TECHNIQUE: Frontal and lateral views of the chest are obtained. FINDINGS: There is no focal air space opacity, pleural effusion, or pneumothorax seen. The cardiac silhouette size remains within normal limits. Overlying EKG leads on current study. The osseous stru ctures are intact. Cholecystectomy clips noted on lateral view. IMPRESSION: No acute cardiopulmonary process. No significant change from prior.
[2020-05-03 08:57] LABS: D-Dimer 0.76 mg/L FEU (<0.60)
[2020-05-03] MEDS ORDERED: diphenhydrAMINE 50 MG/ML 1 ML VIAL IVP STA (09:21)
[2020-05-03] MEDS ORDERED: FAMOTIDINE 20 MG/2 ML VIAL IV STA (09:21)
[2020-05-03] MEDS ORDERED: methylPREDNISolone SOD SUCCI 125 MG/2 ML VIAL IV STA (09:21)
--- NOTE | 2020-05-03 10:18 | CT ---
EXAMINATION TYPE: CT chest angio for PE DATE OF EXAM: 05/03/2020 COMPARISON: CTA for PE October 26, 2018 HISTORY: Chest pain, weakness. PE CT DLP: 367.6 mGycm. Automated Exposure Control for Dose Reduction was Utilized. CONTRAST: CTA scan of the thorax is performed without and with IV Contrast, patient injected with 100 ml mL of Isovue 370, pulmonary embolism protocol. MIP Images are created on CT scanner and reviewed. FINDINGS: LUNGS: The lungs remain grossly clear, there is no concerning noncalcified new parenchymal mass or no dule identified. Stable 2 to 3 mm noncalcified peripheral right lung nodule axial image 72. There is no pleural effusion or pneumothorax seen. The tracheobronchial tree is patent. MEDIASTINUM: There is satisfactory enhancement of the pulmonary artery and its branches, there is no CT evidence for pulmonary embolism. There are no greater than 1 cm noncalcified hilar or mediastinal lymph nodes. Calcified left hilar lymph nodes redemonstrated. Satisfactory enhancement of the thora cic aorta without aneurysm or dissection. No cardiomegaly or pericardial effusion is seen. OTHER: Visualized liver remains heterogeneously hypodense consistent with fatty infiltration. Few spl enic calcifications redemonstrated. Cholecystectomy clips noted on the localizer. IMPRESSION: No CT evidence for acute pulmonary embolism. No suspicious new acute pulmonary process.
[2020-05-03] MEDS ORDERED: NALOXONE 0.4 MG/ML 1 ML VIAL IV PRN (11:27)
[2020-05-03] MEDS ORDERED: KETOROLAC 15 MG/ML 1 ML VIAL IVP PRN (11:27)
[2020-05-03] MEDS ORDERED: ONDANSETRON 4 MG/2 ML VIAL IVP PRN (11:27)
[2020-05-03] MEDS ORDERED: ACETAMINOPHEN TAB 325 MG TAB PO PRN (11:27)
[2020-05-03] MEDS ORDERED: MORPHINE SULFATE 4 MG/ML SYRINGE IV PRN (11:27)
[2020-05-03] MEDS ORDERED: ASPIRIN 81 MG PO STA (11:29)
[2020-05-03] MEDS ORDERED: SODIUM CHLORIDE 0.9% 1,000 ML IV SCH (11:30)
--- NOTE | 2020-05-03 14:26 | CT ---
EXAMINATION TYPE: CT brain wo con DATE OF EXAM: 05/03/2020 HISTORY: AMS CT DLP: 1099.4 mGycm. Automated Exposure Control for Dose Reduction was Utilized. TECHNIQUE: CT scan of the head is performed without contrast. COMPARISON: MRI brain May 01, 2010. FINDINGS: There is no acute intracranial hemorrhage or midline shift identified. There is diffuse v entricular and sulcal prominence consistent with diffuse age-related cerebral atrophy. There is low- attenuation in the periventricular white matter consistent with chronic small vessel ischemic change. The globes are intact and the visualized sinuses are clear. IMPRESSION: No acute intracranial hemorrhage or midline shift. There is minimal diffuse age-related cerebral atrophy and mild chronic small vessel ischemic change redemonstrated. No significant mcmanus e from prior MRI.
--- NOTE | 2020-05-03 15:52 | P.HPIM ---
History of Present Illness Pleasant 50-year-old the female came to ER with complaints of feeling drunk when she woke up. Patient denied any weakness. Patient doesn't have any signs or symptoms of sepsis no nausea no vomiting patient denied any chest pain at the patient was having some chest discomfort intermittently and to which resolved at this time patient was initially admitted for Chest pain rule out acute coronary syndromes patient had one set of troponin which was negative EKG did not show any significant abnormality. Patient does have history of tachycardia for which we have patient follows up with the [facility] physiology as an outpatient. His metformin dose was recently increased and she believed that that may have contributed to her symptoms. Patient that she was at within normal limits on arrival to ER. Patient does use a little marijuana for her back spasms has been using the same amount of marijuana the urine drug screen is only positive for that marijuana. She does have history of sleep apnea and COPD although patient is not in severity exacerbation does use CPAP machine at home. She is requesting neuroimaging because of which I'm opting a CT of the head. Review of Systems REVIEW OF SYSTEMS: CONSTITUTIONAL: No fever, no malaise, no fatigue. HEENT: No recent visual problems or hearing problems. Denied any sore throat. CARDIOVASCULAR: No chest pain, orthopnea, PND, no palpitations, no syncope. PULMONARY: No shortness of breath, no cough, no hemoptysis. GASTROINTESTINAL: No diarrhea, no nausea, no vomiting, no abdominal pain. NEUROLOGICAL: No headaches, no weakness, no numbness. HEMATOLOGICAL: Denies any bleeding or petechiae. GENITOURINARY: Denies any burning micturition, frequency, or urgency. MUSCULOSKELETAL/RHEUMATOLOGICAL: Denies any joint pain, swelling, or any muscle pain. ENDOCRINE: Denies any polyuria or polydipsia. The rest of the 14-point review of systems is negative. Past Medical History Past Medical History: Asthma, Blood Disorder, COPD, Diabetes Mellitus, GERD/Reflux, GI Bleed, Sleep Apnea/CPAP/BIPAP Additional Past Medical History / Comment(s): NIDDM type II, occasional neuropathy bilateral hands/feet, Factir V, lupus anticoagulants, MARC with Cpap, tachycardia, chronic back pain/ankylosing spondylitis, migraines, lower GI bleed, diverticulitis, benign colon polyp, hemorrhoids, enlarged salivary gland, pt states on statin to protect kidneys. History of Any Multi-Drug Resistant Organisms: None Reported Past Surgical History: Cholecystectomy, Heart Catheterization, Orthopedic Surgery, Tonsillectomy, Tubal Ligation, Uterine Ablation Additional Past Surgical History / Comment(s): TTT, R heel spur, bronchoscopy, EGD, colonoscopy Past Anesthesia/Blood Transfusion Reactions: No Reported Reaction, Motion Sickness Smoking Status: Former smoker - Past Family History Mother Family Medical History: COPD Additional Family Medical History / Comment(s): Mother of COPD at the age of 59/60. She was a smoker. Father Family Medical History: Diabetes Mellitus Medications and Allergies Home Medications Medication Instructions Recorded Confirmed Type metFORMIN HCL [Glucophage] 1,000 mg PO AC-BID 09/17/15 05/03/20 History Pravastatin Sodium [Pravachol] 20 mg PO HS 03/25/17 05/03/20 History Aspirin EC [Ecotrin] 325 mg PO DAILY 10/26/18 05/03/20 History Cholecalciferol [Vitamin D3 (25 1,000 unit PO DAILY 05/03/20 05/03/20 History Mcg = 1000 Iu)] Allergies Allergy/AdvReac Type Severity Reaction Status Date / Time Iodinated Contrast Media AdvReac Rash/Hives Verified 05/03/20 08:36 iodine AdvReac Rash/Hives Verified 05/03/20 08:36 Sulfa (Sulfonamide AdvReac Rash/Hives Verified 05/03/20 08:36 Antibiotics) Physical Exam Vitals: Vital Signs Temp Pulse Resp BP Pulse Ox 05/03/20 13:24 84 18 140/81 96 05/03/20 07:38 98.6 F 102 H 18 148/79 100 Intake and Output 05/03/20 05/03/20 05/03/20 06:59 14:59 22:59 Other: Weight 83.461 kg PHYSICAL EXAMINATION: GENERAL: The patient is alert and oriented x3, not in any acute distress. Well developed, well nourished. HEENT: Pupils are round and equally reacting to light. EOMI. No scleral icterus. No conjunctival pallor. Normocephalic, atraumatic. No pharyngeal erythema. No thyromegaly. CARDIOVASCULAR: S1 and S2 present. No murmurs, rubs, or gallops. PULMONARY: Chest is clear to auscultation, no wheezing or crackles. ABDOMEN: Soft, nontender, nondistended, normoactive bowel sounds. No palpable organomegaly. MUSCULOSKELETAL: No joint swelling or deformity. EXTREMITIES: No cyanosis, clubbing, or pedal edema. NEUROLOGICAL: Gross neurological examination did not reveal any focal deficits. SKIN: No rashes. Results CBC & Chem 7: 05/03/20 08:04 05/03/20 08:04 Labs: Abnormal Lab Results - Last 24 Hours (Table) 05/03/20 05/03/20 05/03/20 Range/Units 08:04 08:04 08:04 D-Dimer 0.76 H (<0.60) mg/L FEU Glucose 141 H (74-99) mg/dL ALT 39 H (4-34) U/L Urine Ketones 1+ H (Negative) U Marijuana (THC) Screen (NotDetected) 05/03/20 Range/Units 08:04 D-Dimer (<0.60) mg/L FEU Glucose (74-99) mg/dL ALT (4-34) U/L Urine Ketones (Negative) U Marijuana (THC) Screen Detected H (NotDetected) Thrombosis Risk Factor Assmnt - Choose All That Apply Any of the Below Risk Factors Present?: Yes Each Factor Represents 1 point: Age 41-60 years, Obesity (BMI >25) Other Risk Factors: Yes Each Risk Factor Represents 3 Points: Positive Factor V Leiden Other congenital or acquired thrombophilia - If yes, enter type in comment: No Thrombosis Risk Factor Assessment Total Risk Factor Score: 5 Thrombosis Risk Factor Assessment Level: High Risk Assessment and Plan Plan: -Dizziness or drunken feeling: Etiology is not clear patient's symptoms resolved patient was worked up for sepsis with which was negative and patient was also worked for for for PE which is also negative. Patient has mild nonspecific atypical chest pain 2 troponins are obtained that negative. I'll also obtain a CT of the head if this is negative patient will be discharged today. Patient will follow-up with her event planner as an outpatient and metformin doesn't cause the symptoms and metformin is not known to cause hypoglycemia either. Not sure if Contributed to her symptoms as she has been taking several marijuana for long. Of time without any such symptoms -Ruled out pulmonary embolism Ruled out acute coronary syndromes -Ruled out intracranial bleed -Abdominal tachycardia syndrome for which patient will follow with cardiology as an outpatient -type 2 diabetes mellitus -Earl pharyngeal reflux disease -COPD without any acute exacerbation Patient will be discharged today to follow with PCP and cardiology as an outpatient
--- NOTE | 2020-05-03 15:52 | P.DS ---
Providers Date of admission: 05/03/20 11:37 Attending physician: Shannan Short Primary care physician: Elvira Morales [facility] Course: Please refer to my H&P for further details Patient Condition at Discharge: Stable Plan - Discharge Summary Discharge Rx Participant: No New Discharge Prescriptions: No Action metFORMIN HCL [Glucophage] 1,000 mg PO AC-BID Pravastatin Sodium [Pravachol] 20 mg PO HS Aspirin EC [Ecotrin] 325 mg PO DAILY Cholecalciferol [Vitamin D3 (25 Mcg = 1000 Iu)] 1,000 unit PO DAILY Discharge Medication List metFORMIN HCL [Glucophage] 1,000 mg PO AC-BID 09/17/15 [History] Pravastatin Sodium [Pravachol] 20 mg PO HS 03/25/17 [History] Aspirin EC [Ecotrin] 325 mg PO DAILY 10/26/18 [History] Cholecalciferol [Vitamin D3 (25 Mcg = 1000 Iu)] 1,000 unit PO DAILY 05/03/20 [History] Follow up Appointment(s)/Referral(s): Elvira Morales MD [Primary Care Provider] - 3 Days Discharge Disposition: HOME SELF-CARE
[2020-05-03 16:36] VITALS: BP 134/67; PULSE 98; TEMP 98.5
[2020-05-03] MEDS ORDERED: metFORMIN 500 MG TAB PO SCH (17:30)
[2020-05-03] MEDS ORDERED: PRAVASTATIN SODIUM 20 MG TAB PO SCH (21:00)
[2020-05-04] MEDS ORDERED: ASPIRIN 325 MG TAB PO SCH (09:00)
[2020-05-04] MEDS ORDERED: CHOLECALCIFEROL 1,000 UNIT TAB PO SCH (09:00)
[2020-05-04] MEDS ORDERED: PANTOPRAZOLE 40 MG/10 ML VIAL IV SCH (09:00)
== END 2020-05-03 18:48 | disposition home or self-care (01) ==
LOC: EC 07:36 → 1SOBS 11:37
PROVIDERS: ADMIT Hospitalist; ATTEND Hospitalist
DX: J44.9 Chronic obstructive pulmonary disease, unspecified (principal); K64.9 Unspecified hemorrhoids; G47.33 Obstructive sleep apnea (adult) (pediatric); Z99.89 Dependence on other enabling machines and devices; E11.42 Type 2 diabetes mellitus with diabetic polyneuropathy; D68.51 Activated protein C resistance; K21.9 Gastro-esophageal reflux disease without esophagitis; M32.9 Systemic lupus erythematosus, unspecified; Z79.01 Long term (current) use of anticoagulants; G89.29 Other chronic pain; M54.9 Dorsalgia, unspecified; M45.9 Ankylosing spondylitis of unspecified sites in spine; G43.909 Migraine, unspecified, not intractable, without status migrainosus; Z86.010 Personal history of colon polyps; Z87.19 Personal history of other diseases of the digestive system; R59.0 Localized enlarged lymph nodes; Z90.49 Acquired absence of other specified parts of digestive tract; Z98.51 Tubal ligation status; Z98.890 Other specified postprocedural states; Z87.891 Personal history of nicotine dependence; Z82.5 Family history of asthma and other chronic lower respiratory diseases; Z83.3 Family history of diabetes mellitus; Z79.84 Long term (current) use of oral hypoglycemic drugs; Z79.82 Long term (current) use of aspirin; Z79.899 Other long term (current) drug therapy; Z88.2 Allergy status to sulfonamides; Z91.048 Other nonmedicinal substance allergy status
CPT/HCPCS: 96374; 96375; 99285; 36415; 93005; 85379; 83880; 80053; 83605; 83735; 84484; 85025; 85610; 85730; 81003; 80306; 71046; 70450; 71275; G0378; J1200; J2930; Q9967

== ENCOUNTER → 2021-07-12 | Outpatient (CLI) | payer BC | END | disposition home or self-care (01) | LOC: LABWHC1 16:19 | PROVIDERS: ATTEND Family Medicine | DX: Z13.21 Encounter for screening for nutritional disorder (principal) | CPT/HCPCS: 36415; 84255 ==

== ENCOUNTER → 2021-07-12 | Outpatient (CLI) | payer BC ==
--- NOTE | 2021-07-15 13:25 | MM ---
Reason for exam: screening (asymptomatic). Last mammogram was performed 1 year and 3 months ago. History: Family history of breast cancer in maternal grandmother. Taking estrogen for 4 months. Physical Findings: A clinical breast exam by your physician is recommended on an annual basis and results should be correlated with mammographic findings. MG 3D Screening Mammo W/Cad Bilateral CC and MLO view(s) were taken. Prior study comparison: April 16, 2020, bilateral MG screening mammo w CAD. November 26, 2018, bilateral MG 3d screening mammo w/cad. There are scattered fibroglandular densities. There is no discrete abnormality. ASSESSMENT: Negative, BI-RAD 1 RECOMMENDATION: Routine screening mammogram of both breasts in 1 year.
== END | disposition home or self-care (01) ==
LOC: RADMAMWWP 15:46
PROVIDERS: ATTEND Obstetrics & Gynecology
DX: Z12.31 Encounter for screening mammogram for malignant neoplasm of breast (principal); Z80.3 Family history of malignant neoplasm of breast
CPT/HCPCS: 77063; 77067

== ENCOUNTER 2021-11-17 18:47 | Inpatient (IN) | payer BC ==
[2021-11-17 21:25] LABS: Albumin 4.3 g/dL (3.5-5.0); Calcium 9.3 mg/dL (8.4-10.2); Potassium 4.3 mmol/L (3.5-5.1); Total Bilirubin 0.4 mg/dL (0.2-1.3); Total Protein 7.2 g/dL (6.3-8.2)
[2021-11-17 21:26] LABS: Basophils % (A) 0 %; Eosinophils # (A) 0.1 k/uL (0-0.7); Eosinophils % (A) 0 %; HCT 41.7 % (34.0-46.0); HGB 13.5 gm/dL (11.4-16.0); Lymphocytes # (A) 1.9 k/uL (1.0-4.8); Lymphocytes % (A) 15 %; MCH 28.5 pg (25.0-35.0); MCHC 32.3 g/dL (31.0-37.0); MCV 88.2 fL (80.0-100.0); Monocytes # (A) 0.5 k/uL (0-1.0); Monocytes % (A) 4 %; Neutrophils # (A) 10.4 k/uL (1.3-7.7); Neutrophils % (A) 80 %; Platelet Count 350 k/uL (150-450); RBC 4.72 m/uL (3.80-5.40); RDW 14.3 % (11.5-15.5)
--- NOTE | 2021-11-17 21:31 | XR ---
EXAMINATION TYPE: XR KUB DATE OF EXAM: 11/17/2021 COMPARISON: NONE HISTORY: Abdominal pain TECHNIQUE: 2 views of right FINDINGS: There is no sign of intestinal obstruction or pneumoperitoneum. Fecal pattern is normal. No evidence of a mass. There are clips from cholecystectomy. There are surgical clips in the pelvis on the right side. No calcifications seen over the kidneys. IMPRESSION: Nonacute abdomen.
[2021-11-17 21:32] LABS: Amorphous Sediment,Urine Occasional /hpf; Appearance,Urine Cloudy (Clear); Bacteria,Urine Occasional /hpf; Bilirubin,Urine Negative (Negative); Blood,Urine Large (Negative); Color,Urine Light Yellow; Glucose,Urine (UA) Negative (Negative); Ketones,Urine Negative (Negative); Leukocyte Esterase,Urine Moderate (Negative); Mucus,Urine Rare /hpf; Nitrite,Urine Negative (Negative); Protein,Urine Trace (Negative); RBC,Urine 30 /hpf (0-5); Specific Gravity,Urine 1.006 (1.001-1.035); Squamous Epithelial Cell,Urine 5 /hpf (0-4); Urobilinogen,Urine <2.0 mg/dL (<2.0); WBC,Urine 16 /hpf (0-5)
[2021-11-17] MEDS ORDERED: SODIUM CHLORIDE 0.9% 2,000 ML IV STA (22:33)
--- NOTE | 2021-11-17 22:40 | ED ---
Female Urogenital HPI - General Chief complaint: Urogenital Stated complaint: Blood in urine Time Seen by Provider: 11/17/21 22:31 Source: patient, RN notes reviewed Mode of arrival: ambulatory Limitations: no limitations - History of Present Illness Initial comments: This is a pleasant 51-year-old female presents or asthma complaining of inte rmittent dysuria and hematuria. Patient states that this seemed to start today. Patient denies any nausea or vomiting. Denies any known fever. Patient does have some discomfort in the suprapubic area. Denies any flank pain or back pain. Patient does have a history of diabetes mellitus. Past medical, surgical, family, and social history reviewed. No headache, no fever or chills, no changes in vision or hearing, no sore throat or difficulty with speech, no neck pain, no chest pain or shortness of breath, no abdominal pain, no nausea or vomiting, no changes in bowel movements, no numbness or tingling, no extremity pain, no skin rashes or lesions. - Related Data Home Medications Medication Instructions Recorded Confirmed metFORMIN HCL [Glucophage] 1,000 mg PO AC-BID 09/17/15 05/03/20 Pravastatin Sodium [Pravachol] 20 mg PO HS 03/25/17 05/03/20 Aspirin EC [Ecotrin] 325 mg PO DAILY 10/26/18 05/03/20 Cholecalciferol [Vitamin D3 (25 1,000 unit PO DAILY 05/03/20 05/03/20 Mcg = 1000 Iu)] Allergies Allergy/AdvReac Type Severity Reaction Status Date / Time Iodinated Contrast Media AdvReac Rash/Hives Verified 11/17/21 20:41 iodine AdvReac Rash/Hives Verified 11/17/21 20:41 Sulfa (Sulfonamide AdvReac Rash/Hives Verified 11/17/21 20:41 Antibiotics) Review of Systems ROS Statement: Those systems with pertinent positive or pertinent negative responses have been documented in the HPI. ROS Other: All systems not noted in ROS Statement are negative. Past Medical History Past Medical History: Asthma, Blood Disorder, COPD, Diabetes Mellitus, GERD/Reflux, GI Bleed, Sleep Apnea/CPAP/BIPAP Additional Past Medical History / Comment(s): NIDDM type II, occasional neuropathy bilateral hands/feet, Factir V, lupus anticoagulants, MARC with Cpap, tachycardia, chronic back pain/ankylosing spondylitis, migraines, lower GI bleed, diverticulitis, benign colon polyp, hemorrhoids, enlarged salivary gland, pt states on statin to protect kidneys. History of Any Multi-Drug Resistant Organisms: None Reported Past Surgical History: Cholecystectomy, Heart Catheterization, Orthopedic Surgery, Tonsillectomy, Tubal Ligation, Uterine Ablation Additional Past Surgical History / Comment(s): TTT, R heel spur, bronchoscopy, EGD, colonoscopy Past Anesthesia/Blood Transfusion Reactions: No Reported Reaction, Motion Sickness Past Psychological History: Anxiety Smoking Status: Former smoker Past Alcohol Use History: None Reported Past Drug Use History: Marijuana - Past Family History Mother Family Medical History: COPD Additional Family Medical History / Comment(s): Mother of COPD at the age of 59/60. She was a smoker. Father Family Medical History: Diabetes Mellitus General Exam - General Exam Comments Initial Comments: Patient does not appear to be any specific distress. However she does have tachycardia. Remainder of the vital signs are stable. Limitations: no limitations General appearance: alert, in no apparent distress Head exam: Present: atraumatic, normocephalic, normal inspection Eye exam: Present: normal appearance, PERRL, EOMI. Absent: scleral icterus, conjunctival injection, periorbital swelling ENT exam: Present: normal exam, mucous membranes moist Neck exam: Present: normal inspection. Absent: tenderness, meningismus, lymphadenopathy Respiratory exam: Present: normal lung sounds bilaterally. Absent: respiratory distress, wheezes, rales, rhonchi, stridor Cardiovascular Exam: Present: normal rhythm, tachycardia (104 at the time I am seeing her. ), normal heart sounds. Absent: systolic murmur, diastolic murmur, rubs, gallop, clicks GI/Abdominal exam: Present: soft, tenderness (Minimal tenderness over the suprapubic area), normal bowel sounds. Absent: distended, guarding, rebound, rigid Extremities exam: Present: normal inspection, full ROM, normal capillary refill. Absent: tenderness, pedal edema, joint swelling, calf tenderness Back exam: Present: normal inspection. Absent: CVA tenderness (R), CVA tenderness (L) Neurological exam: Present: alert, oriented X3, CN II-XII intact Psychiatric exam: Present: normal affect, normal mood Skin exam: Present: warm, dry, intact, normal color. Absent: rash Course Vital Signs 11/17/21 20:39 Temperature 98.0 F Pulse Rate 117 H Respiratory 20 Rate Blood Pressure 145/80 O2 Sat by Pulse 98 Oximetry - Reevaluation(s) Reevaluation #1: 11/17/21 23:39 Reevaluation, patient improved, patient meets sepsis criteria. Patient hemodynamically stable. Minimally tachycardic. Procedures - Dale Protocol (Time Out) Nurse: Davin Horvath - Sepsis Sepsis Focused Exam #1 Time Sepsis Criteria Met: 23:40 Sepsis Focused Exam Date: 11/17/21 Sepsis Focused Exam Time: 23:40 Sepsis Focused Exam Complete: Yes Vital Signs & RN Notes Reviewed: Yes Capillary Refill: < 2 Seconds: Fingers, Toes Peripheral Pulses: Absent: Radial (R), Radial (L), Dorsalis Pedis (R), Dorsalis Pedis (L) Skin Color: Normal for Patient Respiratory Exam: normal lung sounds Cardiovascular Exam: tachycardia Medical Decision Making - Medical Decision Making Patient does have leukocytosis with a white blood cell count of 13,000. 10,400 neutrophils. Lactic acid is 2.6. Urinalysis shows 30 red cells per high- powered field, 16 white cells per high-powered field, 5 epithelial cells, occasional bacteria. Given the patient's symptomology. We will treat empirically. Patient is criteria for sepsis, has a small proximal left ureteral stone with obstruction. Urine shows some evidence of infectious process. Patient has irritative voiding. Case discussed in detail with Dr. Yarelis Gutierrez admission patient for urinary tract infection sepsis, and ureteral stone. The case was discussed in detail with ED attending physician. Presentation, findings, treatment plan discussed in detail. Dr. Hastings - Lab Data Result diagrams: 11/17/21 21:06 11/17/21 21:06 Lab Results 11/17/21 11/17/21 11/17/21 Range/Units 20:57 21:06 21:06 WBC 13.0 H (3.8-10.6) k/uL RBC 4.72 (3.80-5.40) m/uL Hgb 13.5 (11.4-16.0) gm/dL Hct 41.7 (34.0-46.0) % MCV 88.2 (80.0-100.0) fL MCH 28.5 (25.0-35.0) pg MCHC 32.3 (31.0-37.0) g/dL RDW 14.3 (11.5-15.5) % Plt Count 350 (150-450) k/uL MPV 7.0 Neutrophils % 80 % Lymphocytes % 15 % Monocytes % 4 % Eosinophils % 0 % Basophils % 0 % Neutrophils # 10.4 H (1.3-7.7) k/uL Lymphocytes # 1.9 (1.0-4.8) k/uL Monocytes # 0.5 (0-1.0) k/uL Eosinophils # 0.1 (0-0.7) k/uL Basophils # 0.0 (0-0.2) k/uL Sodium 139 (137-145) mmol/L Potassium 4.3 (3.5-5.1) mmol/L Chloride 102 (98-107) mmol/L Carbon Dioxide 26 (22-30) mmol/L Anion Gap 11 mmol/L BUN 14 (7-17) mg/dL Creatinine 0.92 (0.52-1.04) mg/dL Est GFR (CKD-EPI)AfAm 83 (>60 ml/min/1.73 sqM) Est GFR (CKD-EPI)NonAf 72 (>60 ml/min/1.73 sqM) Glucose 155 H (74-99) mg/dL Lactic Ac Sepsis Rflx Plasma Lactic Acid Hermann (0.7-2.0) mmol/L Calcium 9.3 (8.4-10.2) mg/dL Total Bilirubin 0.4 (0.2-1.3) mg/dL AST 27 (14-36) U/L ALT 30 (4-34) U/L Alkaline Phosphatase 82 (38-126) U/L Total Protein 7.2 (6.3-8.2) g/dL Albumin 4.3 (3.5-5.0) g/dL Urine Color Light Yellow Urine Appearance Cloudy H (Clear) Urine pH 5.0 (5.0-8.0) Ur Specific [place] 1.006 (1.001-1.035) Urine Protein Trace H (Negative) Urine Glucose (UA) Negative (Negative) Urine Ketones Negative (Negative) Urine Blood Large H (Negative) Urine Nitrite Negative (Negative) Urine Bilirubin Negative (Negative) Urine Urobilinogen <2.0 (<2.0) mg/dL Ur Leukocyte Esterase Moderate H (Negative) Urine RBC 30 H (0-5) /hpf Urine WBC 16 H (0-5) /hpf Ur Squamous Epith Cells 5 H (0-4) /hpf Amorphous Sediment Occasional H (None) /hpf Urine Bacteria Occasional H (None) /hpf Urine Mucus Rare H (None) /hpf 11/17/21 11/17/21 Range/Units 21:06 21:28 WBC (3.8-10.6) k/uL RBC (3.80-5.40) m/uL Hgb (11.4-16.0) gm/dL Hct (34.0-46.0) % MCV (80.0-100.0) fL MCH (25.0-35.0) pg MCHC (31.0-37.0) g/dL RDW (11.5-15.5) % Plt Count (150-450) k/uL MPV Neutrophils % % Lymphocytes % % Monocytes % % Eosinophils % % Basophils % % Neutrophils # (1.3-7.7) k/uL Lymphocytes # (1.0-4.8) k/uL Monocytes # (0-1.0) k/uL Eosinophils # (0-0.7) k/uL Basophils # (0-0.2) k/uL Sodium (137-145) mmol/L Potassium (3.5-5.1) mmol/L Chloride (98-107) mmol/L Carbon Dioxide (22-30) mmol/L Anion Gap mmol/L BUN (7-17) mg/dL Creatinine (0.52-1.04) mg/dL Est GFR (CKD-EPI)AfAm (>60 ml/min/1.73 sqM) Est GFR (CKD-EPI)NonAf (>60 ml/min/1.73 sqM) Glucose (74-99) mg/dL Lactic Ac Sepsis Rflx Y Plasma Lactic Acid Hermann 2.6 H* (0.7-2.0) mmol/L Calcium (8.4-10.2) mg/dL Total Bilirubin (0.2-1.3) mg/dL AST (14-36) U/L ALT (4-34) U/L Alkaline Phosphatase (38-126) U/L Total Protein (6.3-8.2) g/dL Albumin (3.5-5.0) g/dL Urine Color Urine Appearance (Clear) Urine pH (5.0-8.0) Ur Specific [place] (1.001-1.035) Urine Protein (Negative) Urine Glucose (UA) (Negative) Urine Ketones (Negative) Urine Blood (Negative) Urine Nitrite (Negative) Urine Bilirubin (Negative) Urine Urobilinogen (<2.0) mg/dL Ur Leukocyte Esterase (Negative) Urine RBC (0-5) /hpf Urine WBC (0-5) /hpf Ur Squamous Epith Cells (0-4) /hpf Amorphous Sediment (None) /hpf Urine Bacteria (None) /hpf Urine Mucus (None) /hpf Critical Care Time Critical Care Time: Yes (30) Critical Care Time: Reevaluation patient. Evaluation of patient's response to treatment. Patient meets criteria for sepsis. I ordered diagnostic tests. Discussion with admitting providers. Disposition Clinical Impression: Urinary tract infection, Ureterolithiasis, Sepsis, Hematuria Disposition: ADMITTED IP TO THIS [facility] Condition: Fair Referrals: Elvira Morales MD [Primary Care Provider] - 1-2 days Time of Disposition: 23:41 Decision to Admit Reason: Admit from EC Decision Time: 23:41
--- NOTE | 2021-11-17 23:03 | CT ---
EXAMINATION TYPE: CT abdomen pelvis wo con DATE OF EXAM: 11/17/2021 COMPARISON: 01/01/2018 HISTORY: Hematuria CT DLP: 698.90 mGycm Automated exposure control for dose reduction was used. Images obtained from the diaphragm to the floor of the pelvis with no contrast. The lung bases are clear. No pleural effusion. Heart size is normal. No pericardial effusion. There i s some fatty infiltration of the liver. Spleen is intact there is no pancreatic mass. There are clips from cholecystectomy. There is no adrenal mass. Kidneys have normal size. There is slight fullness of the left upper collec ting system. There is evidence of 2 mm calculus proximal left ureter. Ureters are not dilated. There is no retroperitoneal adenopathy. The bladder distends smoothly. There is no inguinal hernia. No free fluid in the pelvis. Uterus is anteverted. No pelvic mass. Lumbar vertebrae have normal alignment. There is no compression fracture. At T10-11 there is some ost eosclerosis in the vertebral bodies. This could relate to some mild chronic discitis. Abdominal aorta is atheromatous. The bony pelvis is intact. There is no mesenteric edema. No ascites or free air. No bowel obstruction. IMPRESSION: There is tiny obstructing calculus proximal left ureter. Minimal hydronephrosis. Fatty infiltration of the liver. Obstruction is new compared to old exam. There is clearing of the right side hydronephrosis and hydroureter compared to the old exam.
[2021-11-18] MEDS ORDERED: MORPHINE SULFATE 4 MG/ML SYRINGE IV PRN (00:11)
[2021-11-18] MEDS ORDERED: ONDANSETRON 4 MG/2 ML VIAL IVP PRN (00:11)
[2021-11-18] MEDS ORDERED: ACETAMINOPHEN TAB 325 MG TAB PO PRN (00:11)
[2021-11-18] MEDS ORDERED: NALOXONE 0.4 MG/ML 1 ML VIAL IV PRN (00:11)
[2021-11-18] MEDS: KETOROLAC 15 MG/ML 1 ML VIAL IVP PRN (01:12)
[2021-11-18] MEDS: SODIUM CHLORIDE 0.9% 1,000 ML IV SCH ×3 (01:16→16:43)
[2021-11-18] MEDS ORDERED: PANTOPRAZOLE 40 MG/10 ML VIAL IV SCH (09:00)
[2021-11-18 10:45] LABS: Glucose,Whole Blood 148 mg/dL (75-99)
--- NOTE | 2021-11-18 11:45 | P.HPIM ---
History of Present Illness H&P Date: 11/18/21 This is a plesant 51 year old female who presents to the with main complaints of hematuria which began after lifting a heavy case of water yesterday. Patient denies any vaginal bleeding, discharge, foul odor. Denies back pain, abdominal pain, chills fever. There was some suprapubic tenderness on admission. Patient also with complaints of vaginal burning and discomfort intermittent which was worked up by gynecology recently. Was attributed to menopause and patient states the burning sensation did not respond to estrogen creams. Pain today is rated 4/10 and patient reports as intermittent vaganial burning/discomfort. She is receiving toradol. Past medical history includes asthma, COPD, sleep apnea with CPAP use, Diabetes Mellitus, GI Bleed, Factor V, Lupus, diverticulitis. She also states history of kidney stones, last one was 2 years ago. History of cholecystectomy, heart catheterization. Patient is a former smoker quit in 2019. Initial workup includes a KUB which shows nonacute abdomen. Abdomen pelvis CT which shows tiny obstructing calculus in the proximal left ureter with minimal hydronephrosis, fatty infiltration of the liver. Obstruction is new compared to old exam. There is also clearing of the right-sided hydronephrosis and hydroureter compared to old exam. Initial labs show white count 13, neutrophils 10.4, glucose 155, lactic acid 3.2 which is resolved to 1.0, liver enzymes are normal. Urinalysis showing large blood, moderate leukocyte esterase. Urine culture pending. Patient received a one time dose of IV rocephin in the . Urine culture currently pending. REVIEW OF SYSTEMS: CONSTITUTIONAL: No fever, no malaise, no fatigue. HEENT: No recent visual problems or hearing problems. Denied any sore throat. CARDIOVASCULAR: No chest pain, orthopnea, PND, no palpitations, no syncope. PULMONARY: No shortness of breath, no cough, no hemoptysis. GASTROINTESTINAL: No diarrhea, no nausea, no vomiting, no abdominal pain. NEUROLOGICAL: No headaches, no weakness, no numbness. HEMATOLOGICAL: Denies any bleeding or petechiae. GENITOURINARY: Reports vaginal burning nondependent on micturition, Denies frequency, or urgency. Reports blood in the urine. MUSCULOSKELETAL/RHEUMATOLOGICAL: Denies any joint pain, swelling, or any muscle pain. ENDOCRINE: Denies any polyuria or polydipsia. The rest of the 14-point review of systems is negative. PHYSICAL EXAMINATION: GENERAL: The patient is alert and oriented x3, not in any acute distress. Well developed, well nourished. HEENT: Pupils are round and equally reacting to light. EOMI. No scleral icterus. No conjunctival pallor. Normocephalic, atraumatic. No pharyngeal erythema. No thyromegaly. CARDIOVASCULAR: S1 and S2 present. No murmurs, rubs, or gallops. PULMONARY: Chest is clear to auscultation, no wheezing or crackles. ABDOMEN: Soft, nontender, nondistended, normoactive bowel sounds. No palpable organomegaly. MUSCULOSKELETAL: No joint swelling or deformity. EXTREMITIES: No cyanosis, clubbing, or pedal edema. NEUROLOGICAL: Gross neurological examination did not reveal any focal deficits. SKIN: No rashes. Assessment and Plan Hematuria possibly due to obstructing stone in left ureter Mild hydronephrosis left kidney Urinary tract infection present on admission, urine culture pending Leukocytosis secondary to above Lactic acidosis, resolved Diabetes Mellitus with hyperglycemia History Factor V Deficiency History Lupus History Asthma/COPD History Obstructive Sleep Apnea uses CPAP Former smoker Obese GI prophyaxis DVT prophylaxis Full Code Plan Continue IV fluids Continue IV antibiotics Resume appropriate home medications Pending urine culture Bladder scan Qshift Urology consultation Repeat labs in AM The impression and plan of care has been dictated by Leia Hinds Nurse Practitioner as directed. Dr. Demetrice MD I have performed a history and physical examination and medical decision making of this patient, discussed the same with the dictator, and agree with the dictators assessment and plan as written, documented as a scribe. Based on total visit time, I have performed more than 50% of this visit. Past Medical History Past Medical History: Asthma, Blood Disorder, COPD, Diabetes Mellitus, GERD/Reflux, GI Bleed, Sleep Apnea/CPAP/BIPAP Additional Past Medical History / Comment(s): NIDDM type II, occasional neuropathy bilateral hands/feet, Factir V, lupus anticoagulants, MARC with Cpap, tachycardia, chronic back pain/ankylosing spondylitis, migraines, lower GI bleed, diverticulitis, benign colon polyp, hemorrhoids, enlarged salivary gland, pt states on statin to protect kidneys. History of Any Multi-Drug Resistant Organisms: None Reported Past Surgical History: Cholecystectomy, Heart Catheterization, Orthopedic Surgery, Tonsillectomy, Tubal Ligation, Uterine Ablation Additional Past Surgical History / Comment(s): TTT, R heel spur, bronchoscopy, EGD, colonoscopy Past Anesthesia/Blood Transfusion Reactions: No Reported Reaction, Motion Sickness Past Psychological History: Anxiety Smoking Status: Former smoker Past Alcohol Use History: None Reported Past Drug Use History: Marijuana - Past Family History Mother Family Medical History: COPD Additional Family Medical History / Comment(s): Mother of COPD at the age of 59/60. She was a smoker. Father Family Medical History: Diabetes Mellitus Medications and Allergies Home Medications Medication Instructions Recorded Confirmed Type metFORMIN HCL [Glucophage] 1,000 mg PO AC-BID 09/17/15 05/03/20 History Pravastatin Sodium [Pravachol] 20 mg PO HS 03/25/17 05/03/20 History Aspirin EC [Ecotrin] 325 mg PO DAILY 10/26/18 05/03/20 History Cholecalciferol [Vitamin D3 (25 1,000 unit PO DAILY 05/03/20 05/03/20 History Mcg = 1000 Iu)] Allergies Allergy/AdvReac Type Severity Reaction Status Date / Time Iodinated Contrast Media AdvReac Rash/Hives Verified 11/17/21 20:41 iodine AdvReac Rash/Hives Verified 11/17/21 20:41 Sulfa (Sulfonamide AdvReac Rash/Hives Verified 11/17/21 20:41 Antibiotics) Physical Exam Vitals: Vital Signs Temp Pulse Resp BP Pulse Ox 11/18/21 01:16 97.8 F 77 18 107/70 98 11/17/21 20:39 98.0 F 117 H 20 145/80 98 Intake and Output 11/17/21 11/18/21 11/18/21 22:59 06:59 14:59 Other: Weight 83.007 kg Results CBC & Chem 7: 11/17/21 21:06 11/17/21 21:06 Labs: Abnormal Lab Results - Last 24 Hours (Table) 11/17/21 11/17/21 11/17/21 Range/Units 20:57 21:06 21:06 WBC 13.0 H (3.8-10.6) k/uL Neutrophils # 10.4 H (1.3-7.7) k/uL Glucose 155 H (74-99) mg/dL POC Glucose (mg/dL) (75-99) mg/dL Plasma Lactic Acid Hermann (0.7-2.0) mmol/L Urine Appearance Cloudy H (Clear) Urine Protein Trace H (Negative) Urine Blood Large H (Negative) Ur Leukocyte Esterase Moderate H (Negative) Urine RBC 30 H (0-5) /hpf Urine WBC 16 H (0-5) /hpf Ur Squamous Epith Cells 5 H (0-4) /hpf Amorphous Sediment Occasional H (None) /hpf Urine Bacteria Occasional H (None) /hpf Urine Mucus Rare H (None) /hpf 11/17/21 11/17/21 11/18/21 Range/Units 21:06 23:45 09:11 WBC (3.8-10.6) k/uL Neutrophils # (1.3-7.7) k/uL Glucose (74-99) mg/dL POC Glucose (mg/dL) 148 H (75-99) mg/dL Plasma Lactic Acid Hermann 2.6 H* 3.2 H* (0.7-2.0) mmol/L Urine Appearance (Clear) Urine Protein (Negative) Urine Blood (Negative) Ur Leukocyte Esterase (Negative) Urine RBC (0-5) /hpf Urine WBC (0-5) /hpf Ur Squamous Epith Cells (0-4) /hpf Amorphous Sediment (None) /hpf Urine Bacteria (None) /hpf Urine Mucus (None) /hpf Assessment and Plan Time with Patient: Greater than 30
[2021-11-18] MEDS: INSULIN ASPART (NovoLOG) 100 UNIT/ML VIAL SQ SCH ×3 (11:51→16:51)
[2021-11-18] MEDS: ENOXAPARIN 40 MG/0.4 ML SYRINGE SQ SCH (11:53)
[2021-11-18 12:13] LABS: Glucose,Whole Blood 119 mg/dL (75-99)
[2021-11-18] MEDS: LINAGLIPTIN 5 MG TABLET PO SCH (12:22)
--- NOTE | 2021-11-18 14:35 | CDI ---
Documentation Clarification Form Date: 11/18/2021 02:21:52 PM From: Aimee Craven RN CCDS Admit Date: 11/18/2021 12:57:00 AM Patient Name: Katelynn Preston Visit Number: [id number] Discharge Date: ATTENTION: The Clinical Documentation Specialists (CDI) and [facility] Coding Staff appreciate your assistance in clarifying documentation. Please respond to the clarification below the line at the bottom and electronically sign. The CDI & [facility] Coding staff will review the response and follow-up if needed. Please note: Queries are made part of the Legal Health Record. If you have any questions, please contact the author of this message via ITS. Dr. Suresh, Sepsis is documented ED, 11/18 but is not noted in subsequent documentation. Clarification is requested. History/Risk Factors: 51-year-old female presents to the ED with hematuria and dysuria. Medical history: DM, Factor V, Lupus and right sided hydronephrosis. Clinical Indicators: VSS: 11/18 B/P 145/80; HR 117; RR 20; Temp 98.0; SpO2 98% ra LABS: Wbc 13; Neutrophils 10.4; lactic acid 3.2; UA: Blood large; Leukocyte Esterase Moderate, WBC 16. ABD/PELVIS: 11/18 There is tiny obstructing calculus proximal left ureter. Minimal hydronephrosis. H&P: 11/18 Urinary tract infection present on admission, urine culture pending. Treatment: 11/18 0.9NS 2L IV bolus; 11/17 Ceftriaxone 2gm IVPB x 1; 11/19 Ceftriaxone 1gm IVPB x Q24HR. Please clarify if the Sepsis is: [ x ] Sepsis confirmed, remains under treatment [ ] Sepsis confirmed, resolved [ ] Sepsis ruled out [ ] Other condition, please specify [ ] Unable to determine (Template Last Revised: September 2020) MTDD
[2021-11-18 16:52] LABS: Glucose,Whole Blood 114 mg/dL (75-99)
[2021-11-18] MEDS ORDERED: PRAVASTATIN SODIUM 20 MG TAB PO SCH (21:00)
--- NOTE | 2021-11-18 21:49 | P.GSCN ---
History of Present Illness Consult date: 11/18/21 Reason for Consult: Left ureteral stone History of present illness: This a 51 yo female that presented to the hospital with 2 mm left sided proximal stone. Patient is admitted to the hospital with intractable pain and UTI. She indicates her pain was at the left flank with radiation the vaginal area. Indicated pain associated with nausea and gross hematuria. Denies any dysuria, fever or chills. Does have hx of stones in the past in which she passed spontaneously. This afternoon on evaluation she indicated her pain has improved. Urine culture is pending Review of Systems - Constitutional Denies chills, Denies fever - EENT Ears, nose, mouth and throat: Denies dysphagia - Cardiovascular Denies chest pain, Denies shortness of breath - Respiratory Denies cough, Denies 7 - Gastrointestinal Reports nausea, Denies abdominal pain, Denies vomiting - Genitourinary Genitourinary: Reports flank pain, Reports hematuria, Reports pelvic pain, Denies dysuria - Neurological Denies headaches, Denies syncope Past Medical History Past Medical History: Asthma, Blood Disorder, COPD, Diabetes Mellitus, GERD/Reflux, GI Bleed, Sleep Apnea/CPAP/BIPAP Additional Past Medical History / Comment(s): Recent tooth infection/completed antibiotics, NIDDM type II, occasional neuropathy bilateral hands/feet, Factor V, lupus anticoagulants, MARC with Cpap, tachycardia, chronic back pain/ankylosing spondylitis, migraines, lower GI bleed, diverticulitis, benign colon polyp, hemorrhoids, past enlarged salivary gland, kidney stones, pt states on statin to protect kidneys. History of Any Multi-Drug Resistant Organisms: None Reported Past Surgical History: Cholecystectomy, Heart Catheterization, Orthopedic Surgery, Tonsillectomy, Tubal Ligation, Uterine Ablation Additional Past Surgical History / Comment(s): TTT, R heel spur, bronchoscopy, EGD, colonoscopy Past Anesthesia/Blood Transfusion Reactions: No Reported Reaction, Motion Sickness Smoking Status: Former smoker - Past Family History Mother Family Medical History: COPD Additional Family Medical History / Comment(s): Mother of COPD at the age of 59/60. She was a smoker. Father Family Medical History: Diabetes Mellitus Medications and Allergies Home Medications Medication Instructions Recorded Confirmed Type metFORMIN HCL [Glucophage] 500 mg PO BID 09/17/15 11/18/21 History Pravastatin Sodium [Pravachol] 20 mg PO HS 03/25/17 11/18/21 History Aspirin EC [Ecotrin] 325 mg PO DAILY 10/26/18 11/18/21 History Cholecalciferol [Vitamin D3 (125 125 mcg PO DAILY 11/18/21 11/18/21 History Mcg = 5000 Iu)] Estradiol [Vagifem] 10 mcg VAGINAL DIRECTED 11/18/21 11/18/21 History Semaglutide [Ozempic] 0.25 mg SQ TH 11/18/21 11/18/21 History sitaGLIPtin [Januvia] 100 mg PO DAILY 11/18/21 11/18/21 History Allergies Allergy/AdvReac Type Severity Reaction Status Date / Time Iodinated Contrast Media AdvReac Rash/Hives Verified 11/18/21 11:41 iodine AdvReac Rash/Hives Verified 11/18/21 11:41 Sulfa (Sulfonamide AdvReac Rash/Hives Verified 11/18/21 11:41 Antibiotics) Surgical - Exam Vital Signs Temp Pulse Resp BP Pulse Ox 98.0 F 117 H 20 145/80 98 11/17/21 20:39 11/17/21 20:39 11/17/21 20:39 11/17/21 20:39 11/17/21 20:39 - General no distress, moderate pain - Eyes normal ocular movement, no pale - ENT normal nares, normal mucosa - Respiratory normal expansion, normal respiratory effort - Abdomen Abdomen: soft, non tender - Psychiatric oriented to time, oriented to person, oriented to place Results - Labs 11/17/21 21:06 11/17/21 21:06 Abnormal Lab Results - Last 24 Hours (Table) 11/17/21 11/18/21 11/18/21 Range/Units 23:45 09:11 12:12 POC Glucose (mg/dL) 148 H 119 H (75-99) mg/dL Plasma Lactic Acid Hermann 3.2 H* (0.7-2.0) mmol/L 11/18/21 Range/Units 16:49 POC Glucose (mg/dL) 114 H (75-99) mg/dL Plasma Lactic Acid Hermann (0.7-2.0) mmol/L Microbiology - Last 24 Hours (Table) 11/17/21 20:57 Urine Culture - Preliminary Urine,Voided Assessment and Plan Assessment: 51 yo female with hx of 2mm left sided proximal ureteral stone and UTI. Patient vital signs stable, WBC 13k on presentation. Discussed that the stone is fairly small with high chance of spontaneous passage. At this time she is agreeable with medical expulsive therapy for her stone -F/U on urine culture, -Will reassess tomorrow, if pain reoccurs will consider stent placement
[2021-11-19] MEDS: INSULIN ASPART (NovoLOG) 100 UNIT/ML VIAL SQ SCH ×3 (00:55→13:36)
[2021-11-19 07:22] LABS: Glucose,Whole Blood 107 mg/dL (75-99)
[2021-11-19] MEDS ORDERED: PANTOPRAZOLE 40 MG TABLET PO SCH (07:30)
[2021-11-19] MEDS: ENOXAPARIN 40 MG/0.4 ML SYRINGE SQ SCH (07:52)
[2021-11-19] MEDS: KETOROLAC 15 MG/ML 1 ML VIAL IVP PRN (07:52)
[2021-11-19] MEDS: LINAGLIPTIN 5 MG TABLET PO SCH (07:52)
[2021-11-19] MEDS: SODIUM CHLORIDE 0.9% 1,000 ML IV SCH (07:53)
[2021-11-19 09:10] LABS: Basophils # (A) 0.02 X 10*3/uL (0.00-0.10); Basophils % (A) 0.3 %; Eosinophils # (A) 0.12 X 10*3/uL (0.04-0.35); HCT 35.1 % (37.2-46.3); HGB 10.8 g/dL (12.0-15.0); Immature Grans, Automated 0.3 %; Lymphocytes # (A) 1.95 X 10*3/uL (0.90-5.00); Lymphocytes % (A) 33.1 %; MCH 27.8 pg (27.0-32.0); MCHC 30.8 g/dL (32.0-37.0); MCV 90.2 fL (80.0-97.0); Monocytes # (A) 0.48 X 10*3/uL (0.20-1.00); Monocytes % (A) 8.1 %; NRBC Per 100 WBC 0 /100 WBCS (0.0-0.0); Neutrophils % (A) 56.2 %; Platelet Count 248 X 10*3/uL (140-440); RBC 3.89 X 10*6/uL (4.10-5.20); RDW 13.8 % (11.5-14.5); WBC 5.89 X 10*3/uL (4.50-10.00)
[2021-11-19 09:28] LABS: ALT 23 U/L (8-44); AST 19 U/L (13-35); African American GFR (CKD) 105.6 (60.0-200.0); Albumin 3.7 g/dL (3.8-4.9); Albumin/Globulin Ratio 1.85 (1.60-3.17); Alkaline Phosphatase 65 U/L (41-126); BUN/Creat Ratio 11.39 Ratio (12.00-20.00); Blood Urea Nitrogen 8.5 mg/dL (9.0-27.0); Calcium 8.6 mg/dL (8.7-10.3); Chloride 108 mmol/L (96-109); Glucose 120 mg/dL (70-110); Non-African American GFR(CKD) 91.2 (60.0-200.0); Potassium 4.4 mmol/L (3.5-5.5); Sodium 141 mmol/L (135-145); Total Bilirubin <0.15 mg/dL (0.30-1.20); Total Protein 5.6 g/dL (6.2-8.2)
[2021-11-19 11:43] LABS: Glucose,Whole Blood 111 mg/dL (75-99)
[2021-11-19 14:51] VITALS: BP 147/74; PULSE 91; RESP 16; TEMP 98.6
--- NOTE | 2021-11-19 15:50 | P.DS ---
Providers Date of admission: 11/18/21 00:57 Attending physician: Pat Grigsby Consults: 11/18/21 00:11 Consult Physician Urgent Consulting Provider: Jay Melchor Consult Reason/Comments: UTI, ureterolithiasis Do you want consulting provider notified?: Yes, Notify in am Primary care physician: Elvira Morales Hospital Course: Hematuria possibly due to obstructing stone in left ureter Mild hydronephrosis left kidney Urinary tract infection with sepsis present on admission Leukocytosis secondary to above Lactic acidosis, resolved Diabetes Mellitus with hyperglycemia History Factor V Deficiency History Lupus History Asthma/COPD History Obstructive Sleep Apnea uses CPAP Former smoker Obese Full Code Discharge disposition Patient is cleared medically for discharge in stable condition. She will follow up with urology in the office. Discharged on 5 days of oral antibiotics. Hospital Course This is a pleasant 51-year-old female presents to the hospital with the complaints of hematuria that began yesterday as well as suprapubic pain and tenderness. Patient also reports intermittent periods of vaginal burning and discomfort. She was seen by gynecology recently and was started on estrogen cream with minimal improvement. Past medical history includes asthma, COPD, sleep apnea with CPAP use, Diabetes Mellitus, GI Bleed, Factor V, Lupus, diverticulitis. She also states history of kidney stones, last one was 2 years ago. History of cholecystectomy, heart catheterization. Patient is a former smoker quit in 2019. Admission urinalysis showing cloudy urine, trace protein, large blood, moderate leukocyte esterase, 30 RBC, 16 WBC, 5 squamous epithelial cells, occasional amorphous sediment, occasional urine bacteria and rare urine mucus. Urine cultures currently pending at this time. Initial workup includes a KUB which shows nonacute abdomen. Abdomen pelvis CT which shows tiny obstructing calculus in the proximal left ureter with minimal hydronephrosis, fatty infiltration of the liver. Obstruction is new compared to old exam. There is also clearing of the right-sided hydronephrosis and hydroureter compared to old exam. Patient was seen in consult by urology services who feels stone will most likely spontaneous past. At this time plan for urology is to follow up with urine culture and consider stent placement if patient is unable to pass stone which she would like to follow up outpatient. Patient states that her symptoms have improved with antibiotics. Labs today showing white count 5.89 is improved from 13 on admission, hemoglobin 10.8 which is most likely dilutional patient to receive a 2 L fluid bolus, BUN 8.5, creatinine 0.7, blood glucose 111. 11/19/2021 Patient will be discharged on 5 days of oral Ceftin. Follow-up urine culture. Currently symptom free, denies any flank pain, denies suprapubic pain. There is no CVA tenderness or suprapubic tenderness on examination. She does state that she no longer sees any blood in her urine. She did strain her urine initially however it was thrown away, we did request that she receive an additional urine strainer on discharge. Patient will follow-up with urology in the office. Vital signs have remained stable, she is afebrile, heart rate 91, blood pressure 143/70 97% room air. Lungs are clear, S1-S2 auscultated. Postvoid residual bladder scan has been negative. Please see medication reconciliation for a list of current medication. Thank you for allowing us to participate in the care of this patient. The impression and plan of care has been dictated by Nurse Deisy Pr actitioner as directed. Dr. Demetrice MD I have performed a history and physical examination and medical decision making of this patient, discussed the same with the dictator, and agree with the dicta tors assessment and plan as written, documented as a scribe. Based on total visit time, I have performed more than 50% of this visit. Patient Condition at Discharge: Good Plan - Discharge Summary Discharge Rx Participant: No New Discharge Prescriptions: New Cefuroxime [Ceftin] 250 mg PO BID 7 Days #14 tab Continue metFORMIN HCL [Glucophage] 500 mg PO BID Pravastatin Sodium [Pravachol] 20 mg PO HS Aspirin EC [Ecotrin] 325 mg PO DAILY sitaGLIPtin [Januvia] 100 mg PO DAILY Estradiol [Vagifem] 10 mcg VAGINAL DIRECTED Semaglutide [Ozempic] 0.25 mg SQ TH Cholecalciferol [Vitamin D3 (125 Mcg = 5000 Iu)] 125 mcg PO DAILY Discharge Medication List metFORMIN HCL [Glucophage] 500 mg PO BID 09/17/15 [History] Pravastatin Sodium [Pravachol] 20 mg PO HS 03/25/17 [History] Aspirin EC [Ecotrin] 325 mg PO DAILY 10/26/18 [History] Cholecalciferol [Vitamin D3 (125 Mcg = 5000 Iu)] 125 mcg PO DAILY 11/18/21 [History] Estradiol [Vagifem] 10 mcg VAGINAL DIRECTED 11/18/21 [History] Semaglutide [Ozempic] 0.25 mg SQ TH 11/18/21 [History] sitaGLIPtin [Januvia] 100 mg PO DAILY 11/18/21 [History] Cefuroxime [Ceftin] 250 mg PO BID 7 Days #14 tab 11/19/21 [Rx] Follow up Appointment(s)/Referral(s): Alon Cameron MD [STAFF PHYSICIAN] - 1 Week (please call and schedule appointment ) Elviar Morales MD [Primary Care Provider] - 1-2 days (please call and schedule appointment ) Patient Instructions/Handouts: Kidney Stones (DC) Activity/Diet/Wound Care/Special Instructions: Increase water intake Continue to strain urine to monitor for passing of stone Discharge Disposition: HOME SELF-CARE
== END 2021-11-19 15:33 | disposition home or self-care (01) | DRG 872 ==
LOC: EC 18:47 → 4SSUR 11-18 00:57
PROVIDERS: ADMIT Internal Medicine; ATTEND Internal Medicine
DX: A41.9 Sepsis, unspecified organism (principal); N13.6 Pyonephrosis; D68.2 Hereditary deficiency of other clotting factors; E87.2 Acidosis; D68.51 Activated protein C resistance; M45.9 Ankylosing spondylitis of unspecified sites in spine; E11.40 Type 2 diabetes mellitus with diabetic neuropathy, unspecified; E11.65 Type 2 diabetes mellitus with hyperglycemia; F41.9 Anxiety disorder, unspecified; R31.0 Gross hematuria; M32.9 Systemic lupus erythematosus, unspecified; G47.33 Obstructive sleep apnea (adult) (pediatric); J44.9 Chronic obstructive pulmonary disease, unspecified; E66.9 Obesity, unspecified; Z87.891 Personal history of nicotine dependence; Z87.19 Personal history of other diseases of the digestive system; Z86.010 Personal history of colon polyps; X50.0XXA Overexertion from strenuous movement or load, initial encounter; Z79.82 Long term (current) use of aspirin; Z79.84 Long term (current) use of oral hypoglycemic drugs; Z79.899 Other long term (current) drug therapy; Z82.5 Family history of asthma and other chronic lower respiratory diseases; Z83.3 Family history of diabetes mellitus; Z87.442 Personal history of urinary calculi; Z90.49 Acquired absence of other specified parts of digestive tract; Z91.041 Radiographic dye allergy status; Z88.2 Allergy status to sulfonamides; Z68.35 Body mass index [BMI] 35.0-35.9, adult
CPT/HCPCS: 36415; 74018; 74176; 80053; 81001; 83605; 85025; 87040; 87086; 93005; 96361; 96365; 96366; 96375; 99291

== ENCOUNTER → 2023-04-15 | Outpatient (CLI) | payer BC ==
[2023-04-15 16:31] LABS: Basophils # (A) 0.03 X 10*3/uL (0.00-0.10); Basophils % (A) 0.4 %; Eosinophils # (A) 0.12 X 10*3/uL (0.04-0.35); Eosinophils % (A) 1.7 %; HCT 43.4 % (37.2-46.3); HGB 13.8 d/dL (12.0-15.0); Lymphocytes # (A) 1.81 X 10*3/uL (0.90-5.00); Lymphocytes % (A) 25.7 %; MCH 28.1 pg (27.0-32.0); MCHC 31.8 d/dL (32.0-37.0); MCV 88.4 FL (80.0-97.0); Mean Platelet Volume 10.3 FL (9.5-12.2); Monocytes # (A) 0.47 X 10*3/uL (0.20-1.00); Monocytes % (A) 6.7 %; NRBC Per 100 WBC 0 X 10*3/uL (0.00-0.01); Neutrophils # (A) 4.57 X 10*3/uL (1.80-7.70); Neutrophils % (A) 65.1 %; Platelet Count 343 X 10*3/uL (140-440); RBC 4.91 X 10*6/uL (4.10-5.20); RDW 14.9 % (11.5-14.5); WBC 7.03 X 10*3/uL (4.50-10.00)
[2023-04-15 17:02] LABS: T4, Free (Free Thyroxine) 1.17 ng/dL (0.80-1.80)
== END | disposition home or self-care (01) ==
LOC: LABWHC1 09:36
PROVIDERS: ATTEND Dermatology MOHS-Micrographic Surgery
DX: L65.0 Telogen effluvium (principal); L71.8 Other rosacea; I78.8 Other diseases of capillaries
CPT/HCPCS: 36415; 82306; 82607; 84439; 84443; 85025

== ENCOUNTER → 2023-05-20 | Outpatient (CLI) | payer BC ==
[2023-05-21 02:53] LABS: ALT 15 U/L (8-44); AST 13 U/L (13-35); Albumin 4.3 d/dL (3.8-4.9); Albumin/Globulin Ratio 1.79 Ratio (1.60-3.17); Alkaline Phosphatase 73 U/L (41-126); Blood Urea Nitrogen 12.9 mg/dL (9.0-27.0); Calcium 9.6 mg/dL (8.7-10.3); Carbon Dioxide 25.2 mmol/L (21.6-31.8); Chloride 104 mmol/L (96-109); Creatine Kinase 78 U/L (26-186); Globulin 2.4 d/dL (1.6-3.3); Glucose 103 mg/dL (70-110); Potassium 4.2 mmol/L (3.5-5.5); Sodium 142 mmol/L (135-145); Total Bilirubin 0.2 mg/dL (0.3-1.2); Total Protein 6.7 d/dL (6.2-8.2)
[2023-05-21 04:27] LABS: Basophils # (A) 0.02 X 10*3/uL (0.00-0.10); Basophils % (A) 0.3 %; Eosinophils # (A) 0.04 X 10*3/uL (0.04-0.35); Eosinophils % (A) 0.5 %; HCT 40.4 % (37.2-46.3); HGB 12.8 d/dL (12.0-15.0); Lymphocytes # (A) 1.79 X 10*3/uL (0.90-5.00); Lymphocytes % (A) 22.4 %; MCHC 31.7 d/dL (32.0-37.0); MCV 88.4 FL (80.0-97.0); Mean Platelet Volume 10.2 FL (9.5-12.2); Monocytes # (A) 0.48 X 10*3/uL (0.20-1.00); NRBC Per 100 WBC 0 X 10*3/uL (0.00-0.01); Neutrophils # (A) 5.63 X 10*3/uL (1.80-7.70); Neutrophils % (A) 70.5 %; Platelet Count 330 X 10*3/uL (140-440); RBC 4.57 X 10*6/uL (4.10-5.20); RDW 15.5 % (11.5-14.5); WBC 7.98 X 10*3/uL (4.50-10.00)
[2023-05-21 05:45] LABS: Erythrocyte Sedimentation Rate 48 mm/Hr (0-30)
== END | disposition home or self-care (01) ==
LOC: LABWHC1 16:09
PROVIDERS: ATTEND Family Medicine
DX: R07.89 Other chest pain (principal)
CPT/HCPCS: 36415; 80053; 82550; 84484; 85025; 85652; 86140

== ENCOUNTER → 2023-06-19 | Outpatient (CLI) | payer BC ==
[2023-06-19 10:10] LABS: Basophils # (A) 0.1 k/uL (0-0.2); Basophils % (A) 1 %; Eosinophils # (A) 0.2 k/uL (0-0.7); Eosinophils % (A) 2 %; HCT 46.9 % (34.0-46.0); HGB 14.6 gm/dL (11.4-16.0); Hypochromasia Marked; Lymphocytes # (A) 1.8 k/uL (1.0-4.8); Lymphocytes % (A) 21 %; MCH 28.7 pg (25.0-35.0); MCV 92.5 fL (80.0-100.0); Mean Platelet Volume 7.2; Monocytes # (A) 0.4 k/uL (0-1.0); Monocytes % (A) 5 %; Neutrophils # (A) 6.2 k/uL (1.3-7.7); Neutrophils % (A) 70 %; Platelet Count 382 k/uL (150-450); RBC 5.08 m/uL (3.80-5.40); RDW 15.1 % (11.5-15.5); WBC 8.9 k/uL (3.8-10.6)
[2023-06-19 12:08] LABS: ALT 14 U/L (8-44); AST 12 U/L (13-35); Albumin 4.1 g/dL (3.8-4.9); Albumin/Globulin Ratio 1.58 Ratio (1.60-3.17); Alkaline Phosphatase 75 U/L (41-126); BUN/Creat Ratio 27.71 Ratio (12.00-20.00); Blood Urea Nitrogen 19.4 mg/dL (9.0-27.0); Calcium 9.3 mg/dL (8.7-10.3); Chloride 101 mmol/L (96-109); Chol/HDL Ratio 4.48 Ratio; Globulin 2.6 g/dL (1.6-3.3); Glucose 127 mg/dL (70-110); LDL Cholesterol,Calculated 187.7 mg/dL (0.0-131.0); Potassium 4.4 mmol/L (3.5-5.5); Sodium 139 mmol/L (135-145); Total Bilirubin <0.2 mg/dL (0.3-1.2); Total Protein 6.7 g/dL (6.2-8.2); VLDL Calculation 18.18 mg/dL (5.00-40.00)
== END | disposition home or self-care (01) ==
LOC: LABWHC1 06:51
PROVIDERS: ATTEND Physician Assistant
DX: E11.9 Type 2 diabetes mellitus without complications (principal)
CPT/HCPCS: 36415; 80053; 80061; 83036; 85025

== ENCOUNTER 2023-07-08 04:17 | Emergency (ER) | payer BC ==
[2023-07-08 04:45] VITALS: BP 157/82; PULSE 124; RESP 20; TEMP 98.4
--- NOTE | 2023-07-08 05:41 | ED ---
General Adult HPI - General Chief complaint: Upper Respiratory Infection Stated complaint: Sinus Infection, Painful breathing, tachycardia Time Seen by Provider: 07/08/23 04:19 Source: patient, RN notes reviewed Mode of arrival: ambulatory Limitations: no limitations - History of Present Illness Initial comments: 53-year-old female presenting for evaluation of congestion, cough, myalgias. Symptoms 7 present for the past 24 hours. Denies central chest pain. Denies dyspnea. Denies vomiting or diarrhea. - Related Data Home Medications Medication Instructions Recorded Confirmed metFORMIN HCL [Glucophage] 500 mg PO BID 09/17/15 11/18/21 Pravastatin Sodium [Pravachol] 20 mg PO HS 03/25/17 11/18/21 Aspirin EC [Ecotrin] 325 mg PO DAILY 10/26/18 11/18/21 Cholecalciferol [Vitamin D3 (125 125 mcg PO DAILY 11/18/21 11/18/21 Mcg = 5000 Iu)] Semaglutide [Ozempic] 0.25 mg SQ TH 11/18/21 11/18/21 estradioL [Vagifem] 10 mcg VAGINAL DIRECTED 11/18/21 11/18/21 sitaGLIPtin [Januvia] 100 mg PO DAILY 11/18/21 11/18/21 Previous Rx's Medication Instructions Recorded Cefuroxime [Ceftin] 250 mg PO BID 7 Days #14 tab 11/19/21 Nirmatrelvir/Ritonavir [Paxlovid 1 each PO BID #1 unit 07/08/23 2X150 mg-100 mg (Eua)] Allergies Allergy/AdvReac Type Severity Reaction Status Date / Time Iodinated Contrast Media AdvReac Rash/Hives Verified 07/08/23 04:32 iodine AdvReac Rash/Hives Verified 07/08/23 04:32 Sulfa (Sulfonamide AdvReac Rash/Hives Verified 07/08/23 04:32 Antibiotics) Review of Systems ROS Statement: Those systems with pertinent positive or pertinent negative responses have been documented in the HPI. ROS Other: All systems not noted in ROS Statement are negative. Past Medical History Past Medical History: Asthma, Blood Disorder, COPD, Diabetes Mellitus, GERD/Reflux, GI Bleed, Sleep Apnea/CPAP/BIPAP Additional Past Medical History / Comment(s): Recent tooth infection/completed antibiotics, NIDDM type II, occasional neuropathy bilateral hands/feet, Factor V, lupus anticoagulants, MARC with Cpap, tachycardia, chronic back pain/ankylosing spondylitis, migraines, lower GI bleed, diverticulitis, benign colon polyp, hemorrhoids, past enlarged salivary gland, kidney stones, pt states on statin to protect kidneys. History of Any Multi-Drug Resistant Organisms: ESBL Date of last positivie culture/infection: 11/21/21 ESBL E.coli MDRO Source:: Urine Past Surgical History: Cholecystectomy, Heart Catheterization, Orthopedic Surgery, Tonsillectomy, Tubal Ligation, Uterine Ablation Additional Past Surgical History / Comment(s): TTT, R heel spur, bronchoscopy, EGD, colonoscopy Past Anesthesia/Blood Transfusion Reactions: No Reported Reaction, Motion Sickness Past Psychological History: Anxiety Smoking Status: Former smoker Past Alcohol Use History: None Reported Past Drug Use History: None Reported - Past Family History Mother Family Medical History: COPD Additional Family Medical History / Comment(s): Mother of COPD at the age of 59/60. She was a smoker. Father Family Medical History: Diabetes Mellitus General Exam Limitations: no limitations General appearance: alert, in no apparent distress Head exam: Present: atraumatic, normocephalic Eye exam: Present: normal appearance Neck exam: Present: normal inspection. Absent: tenderness, meningismus Respiratory exam: Present: normal lung sounds bilaterally. Absent: respiratory distress, wheezes Cardiovascular Exam: Present: normal rhythm, tachycardia GI/Abdominal exam: Present: soft. Absent: distended, tenderness, guarding Extremities exam: Present: normal inspection, normal capillary refill. Absent: pedal edema Neurological exam: Present: alert, oriented X3, CN II-XII intact. Absent: motor sensory deficit Psychiatric exam: Present: normal affect, normal mood Skin exam: Present: warm, dry, intact Course Vital Signs 07/08/23 04:29 Temperature 98.4 F Pulse Rate 124 H Respiratory 20 Rate Blood Pressure 157/82 O2 Sat by Pulse 97 Oximetry Medical Decision Making - Medical Decision Making Was pt. sent in by a medical professional or institution (Dr. PA, MERCHANDISE PICKUP/RECEIVING ASSOCIATE, urgent care, hospital, or retirement...) When possible be specific @ -No Did you speak to anyone other than the patient for history (EMS, parent, family, police, friend...)? What history was obtained from this source @ -No Did you review nursing and triage notes (agree or disagree)? Why? @ -I reviewed and agree with nursing and triage notes Were old charts reviewed (outside hosp., previous admission, EMS record, old EKG, old radiological studies, urgent care reports/EKG's, retirement records)? Report findings @ -No old charts were reviewed Differential Diagnosis (chest pain, altered mental status, abdominal pain women, abdominal pain men, vaginal bleeding, weakness, fever, dyspnea, syncope, headache, dizziness, GI bleed, back pain, seizure, CVA, palpatations, mental health, musculoskeletal)? @Pneumonia, coronavirus, influenza, upper respiratory infection EKG interpreted by me (3pts min.). @ -As above X-rays interpreted by me (1pt min.). @ -Chest x-ray negative for pneumothorax, no focal PNA CT interpreted by me (1pt min.). @ -None done U/S interpreted by me (1pt. min.). @ -None done What testing was considered but not performed or refused? (CT, X-rays, U/S, labs)? Why? @ -None What meds were considered but not given or refused? Why? @ -None Did you discuss the management of the patient with other professionals (professionals i.e. , PA, MERCHANDISE PICKUP/RECEIVING ASSOCIATE, lab, RT, psych nurse, social services manager, senior finance manager, teacher, air defense artillery officer, case assistant)? Give summary @ -No Was smoking cessation discussed for >3mins.? @ -No Was critical care preformed (if so, how long)? @ -No Were there social determinants of health that impacted care today? How? (Homelessness, low income, unemployed, alcoholism, drug addiction, transportation, low edu. Level, literacy, decrease access to med. care, penitentiary, rehab)? @ -No Was there de-escalation of care discussed even if they declined (Discuss DNR or withdrawal of care, Hospice)? DNR status @ -No What co-morbidities impacted this encounter? (DM, HTN, Smoking, COPD, CAD, Cancer, CVA, ARF, Chemo, Hep., AIDS, mental health diagnosis, sleep apnea, morbid obesity)? @ -None Was patient admitted / discharged? Hospital course, mention meds given and route, prescriptions, significant lab abnormalities, going to OR and other pertinent info. @ -53-year-old female with cough and cold symptoms, she does test positive for coronavirus. Patient is otherwise well-appearing without hypoxia or respiratory distress. Patient stable for discharge with strict return parameters. She should follow-up with her primary care provider. Undiagnosed new problem with uncertain prognosis? @ -No Drug Therapy requiring intensive monitoring for toxicity (Heparin, Nitro, In sulin, Cardizem)? @ -No Were any procedures done? @ -No Diagnosis/symptom? @ -covid Acute, or Chronic, or Acute on Chronic? @ -[acute Uncomplicated (without systemic symptoms) or Complicated (systemic symptoms)? @ -default Side effects of treatment? @ -No Exacerbation, Progression, or Severe Exacerbation? @ -No Poses a threat to life or bodily function? How? (Chest pain, USA, ID, pneumonia, PE, COPD, DKA, ARF, appy, cholecystitis, CVA, Diverticulitis, Homicidal, Suicidal, threat to staff... and all critical care pts) @ -[Low risk at this time, there is risk of disease progression. - Lab Data Lab Results 07/08/23 Range/Units 04:38 Influenza Type A (PCR) Not Detected (Not Detectd) Influenza Type B (PCR) Not Detected (Not Detectd) RSV (PCR) Not Detected (Not Detectd) SARS-CoV-2 (PCR) Detected A (Not Detectd) Disposition Clinical Impression: COVID-19 Disposition: HOME SELF-CARE Condition: Fair Instructions (If sedation given, give patient instructions): COVID-19 (Coronavirus Disease 2019) (ED) Prescriptions: Nirmatrelvir/Ritonavir [Paxlovid 2X150 mg-100 mg (Eua)] 1 each PO BID #1 unit Is patient prescribed a controlled substance at d/c from ED?: No Referrals: Reed Gonzalez MD [Primary Care Provider] - 1-2 days
--- NOTE | 2023-07-08 06:17 | XR ---
EXAM: XR Chest, 2 Views CLINICAL HISTORY: ITS.REASON XR Reason: cough TECHNIQUE: Frontal and lateral views of the chest. COMPARISON: 05/03/2020 FINDINGS: Lungs: Unremarkable. No consolidation. Pleural space: Unremarkable. No pneumothorax. Heart: Unremarkable. No cardiomegaly. Mediastinum: Unremarkable. Normal mediastinal contour. Bones/joints: Unremarkable. No acute fracture. Upper abdomen: Right upper quadrant surgical clips compatible with prior cholecystectomy. IMPRESSION: No acute findings in the chest.
== END 2023-07-08 05:57 | disposition home or self-care (01) ==
LOC: EC 04:17
DX: U07.1 COVID-19 (principal); J44.89 Other specified chronic obstructive pulmonary disease; E11.9 Type 2 diabetes mellitus without complications; G47.30 Sleep apnea, unspecified; F41.9 Anxiety disorder, unspecified; Z87.891 Personal history of nicotine dependence; Z79.899 Other long term (current) drug therapy; Z79.84 Long term (current) use of oral hypoglycemic drugs; Z79.82 Long term (current) use of aspirin; Z91.041 Radiographic dye allergy status; Z88.2 Allergy status to sulfonamides
CPT/HCPCS: 71046; 87636; 99285

== ENCOUNTER → 2023-09-08 | Outpatient (CLI) | payer BC ==
--- NOTE | 2023-09-09 09:13 | US ---
EXAMINATION TYPE: US kidneys/renal and bladder DATE OF EXAM: 09/08/2023 COMPARISON: 11/17/2021 CLINICAL INDICATION: Female, 53 years old with history of R10.9 UNSPECIFIED ABDOMINAL PAIN; Left side pain. Patient states history of renal stones. EXAM MEASUREMENTS: Right Kidney: 10.1 x 5.0 x 4.6 cm Left Kidney: 10.9 x 4.6 x 5.7 cm Right Kidney: Medial inferior anechoic lesion = 1.3 x 1.0 x 1.0 cm Left Kidney: Lateral lower echogenic focus = 0.6 cm Bladder: distended, anechoic There is no evidence for hydronephrosis at this point in time. No nephrolithiasis is seen. No ally s are identified. The urinary bladder is anechoic. Bilateral ureteral jets are seen. IMPRESSION: 1. No evidence for obstructive uropathy. 2. Anechoic cyst in the right kidney. 3. Left nonobstructing renal calculus.
== END | disposition home or self-care (01) ==
LOC: RADUSWWP 15:36
PROVIDERS: ATTEND Family Medicine
DX: N28.1 Cyst of kidney, acquired (principal); N20.0 Calculus of kidney; R10.9 Unspecified abdominal pain
CPT/HCPCS: 76770

== ENCOUNTER → 2023-10-05 | Outpatient (CLI) | payer BC ==
--- NOTE | 2023-10-07 14:15 | MM ---
Reason for Exam: Screening (asymptomatic). Last screening mammogram was performed 12 month(s) ago. Patient History: Menarche at age 7. First Full-Term at age 16. Estrogen for 4 months. Maternal grandmother had breast cancer. Risk Values: Kezia 5 year model risk: 0.9%. NCI Lifetime model risk: 6.6%. Prior Study Comparison: 04/16/2020 Bilateral Screening Mammogram, [facility]. 07/12/2021 Bilateral Screening Mammogram, [facility]. 10/03/2022 Bilateral MG 3D screening mammo w/cad, [facility]. Tissue Density: The breasts are almost entirely fatty. Findings: Analyzed By CAD. There is no suspicious group of microcalcifications or new suspicious mass. Overall Assessment: Negative, BI-RAD 1 Management: Screening Mammogram of both breasts in [address] [facility] will attempt to contact patient to return for supplemental views and ultrasound if indicated. Patient should continue monthly self-breast exams. A clinical breast exam by your physician is recommended on an annual basis. This exam should not preclude additional follow-up of suspicious palpable abnormalities. Note on Kezia scores and lifetime risk: 1. A Kezia score greater than 3% is considered moderate risk. If this is the case, consider specialist referral to assess eligibility for a risk reducing agent. 2. If overall lifetime risk for the development of breast cancer is 20% or higher, the patient may qualify for future screening with alternating mammogram and breast MRI. Electronically signed and approved by: Julius Srinivasan DO
== END | disposition home or self-care (01) ==
LOC: RADMAMWWP 15:38
PROVIDERS: ATTEND Obstetrics & Gynecology
DX: Z12.31 Encounter for screening mammogram for malignant neoplasm of breast (principal); Z80.3 Family history of malignant neoplasm of breast
CPT/HCPCS: 77063; 77067

== ENCOUNTER 2023-10-17 08:15 | Emergency (ER) | payer BC ==
--- NOTE | 2023-10-17 08:37 | ED ---
Back Pain HPI - General Chief Complaint: Back Pain/Injury Stated Complaint: Back Pain Time Seen by Provider: 10/17/23 08:20 Source: patient, RN notes reviewed Mode of arrival: ambulatory Limitations: no limitations - History of Present Illness Initial Comments: This is a 53 year old female who presents to the emergency department for back pain. States that this started about a week ago. Denies any injuries. It started on the left side and is now also on the right side. This is in the mid to lower back. She describes the pain as feeling like a muscle spasm. She has had similar pain before, in terms of muscle spasms in the back, but it does not usually last this long. Denies any loss of bowel/bladder control or saddle anesthesia. She did have some nausea, which she attributes to excessive doses of ibuprofen and Tylenol due to the pain. Pain does not radiate into the abdomen. MD Complaint: back pain - Related Data Home Medications Medication Instructions Recorded Confirmed metFORMIN HCL [Glucophage] 500 mg PO BID 09/17/15 11/18/21 Pravastatin Sodium [Pravachol] 20 mg PO HS 03/25/17 11/18/21 Aspirin EC [Ecotrin] 325 mg PO DAILY 10/26/18 11/18/21 Cholecalciferol [Vitamin D3 (125 125 mcg PO DAILY 11/18/21 11/18/21 Mcg = 5000 Iu)] Semaglutide [Ozempic] 0.25 mg SQ TH 11/18/21 11/18/21 estradioL [Vagifem] 10 mcg VAGINAL DIRECTED 11/18/21 11/18/21 sitaGLIPtin [Januvia] 100 mg PO DAILY 11/18/21 11/18/21 Previous Rx's Medication Instructions Recorded Cefuroxime [Ceftin] 250 mg PO BID 7 Days #14 tab 11/19/21 Nirmatrelvir/Ritonavir [Paxlovid 1 each PO BID #1 unit 07/08/23 2X150 mg-100 mg (Eua)] Ibuprofen [Motrin] 800 mg PO Q8H PRN #30 tab 10/17/23 Lidocaine 5% Patch [Lidoderm 5% 1 patch TOPICAL DAILY PRN #30 patch 10/17/23 Patch] methocarbamoL [Robaxin-750] 1,500 mg PO TID PRN #30 tab 10/17/23 Allergies Allergy/AdvReac Type Severity Reaction Status Date / Time Iodinated Contrast Media AdvReac Rash/Hives Verified 10/17/23 08:19 iodine AdvReac Rash/Hives Verified 10/17/23 08:19 Sulfa (Sulfonamide AdvReac Rash/Hives Verified 10/17/23 08:19 Antibiotics) Review of Systems ROS Statement: Those systems with pertinent positive or pertinent negative responses have been documented in the HPI. ROS Other: All systems not noted in ROS Statement are negative. Past Medical History Past Medical History: Asthma, Blood Disorder, COPD, Diabetes Mellitus, GERD/Reflux, GI Bleed, Sleep Apnea/CPAP/BIPAP Additional Past Medical History / Comment(s): Recent tooth infection/completed antibiotics, NIDDM type II, occasional neuropathy bilateral hands/feet, Factor V, lupus anticoagulants, MARC with Cpap, tachycardia, chronic back pain/a nkylosing spondylitis, migraines, lower GI bleed, diverticulitis, benign colon polyp, hemorrhoids, past enlarged salivary gland, kidney stones, pt states on statin to protect kidneys. History of Any Multi-Drug Resistant Organisms: ESBL Date of last positivie culture/infection: 11/21/21 ESBL E.coli MDRO Source:: Urine Past Surgical History: Cholecystectomy, Heart Catheterization, Orthopedic Surgery, Tonsillectomy, Tubal Ligation, Uterine Ablation Additional Past Surgical History / Comment(s): TTT, R heel spur, bronchoscopy, EGD, colonoscopy Past Anesthesia/Blood Transfusion Reactions: No Reported Reaction, Motion Sickness Past Psychological History: Anxiety Smoking Status: Former smoker Past Alcohol Use History: None Reported Past Drug Use History: Marijuana - Past Family History Mother Family Medical History: COPD Additional Family Medical History / Comment(s): Mother of COPD at the age of 59/60. She was a smoker. Father Family Medical History: Diabetes Mellitus General Exam Limitations: no limitations General appearance: alert, in distress Head exam: Present: atraumatic, normocephalic, normal inspection Respiratory exam: Present: normal lung sounds bilaterally. Absent: respiratory distress, wheezes, rales, rhonchi, stridor Cardiovascular Exam: Present: regular rate, normal rhythm, normal heart sounds. Absent: systolic murmur, diastolic murmur, rubs, gallop, clicks Back exam: Present: other (Bilateral sides of the mid to lower back) Neurological exam: Present: alert, oriented X3, CN II-XII intact Psychiatric exam: Present: normal affect, normal mood Skin exam: Present: warm, dry, intact, normal color. Absent: rash Course Vital Signs 10/17/23 10/17/23 10/17/23 08:16 08:47 10:48 Temperature 98.5 F Pulse Rate 115 H 60 68 Respiratory 18 16 16 Rate Blood Pressure 169/86 150/89 136/86 O2 Sat by Pulse 99 98 98 Oximetry Medical Decision Making - Medical Decision Making This is a 53 year old female who presents to the emergency department for back pain. Was pt. sent in by a medical professional or institution? @ -No Did you speak to anyone other than the patient for history? @ -No Did you review nursing and triage notes? @ -Yes, and I agree, it is accurate with regards to the patient's symptoms. Were old charts reviewed? @ -No Differential Diagnosis? @ -Differential Back Pain: Strain, zoster, cauda equina syndrome, epidural abscess, vertebral osteomyelitis, discitis, fracture, subluxation, disc herniation, DJD, spinal stenosis, dissection, AAA, pancreatitis, peptic ulcer disease, pyelonephritis, kidney stone, this is not meant to be an all-inclusive list. EKG interpreted by me (3pts min.)? @ -Not obtained X-rays interpreted by me (1pt min.)? @ -X-ray of the thoracic and lumbar spine obtained. My interpretation identifies no acute fractures. CT interpreted by me (1pt min.)? @ -Not obtained U/S interpreted by me (1pt. min.)? @ -Not obtained What testing was considered but not performed? (CT, X-rays, U/S, labs)? Why? @ -None What meds were considered but not given? Why? @ -None Did you discuss the management of the patient with other professionals? @ -No Did you reconcile home meds? @ -No Was smoking cessation discussed for >3mins.? @ -No Was critical care preformed (if so, how long)? @ -No Were there social determinants of health that impacted care today? How? (Homelessness, low income, unemployed, alcoholism, drug addiction, transportation, low edu. Level, literacy, decrease access to med. care, correction, rehab)? @ -No Was there de-escalation of care discussed even if they declined? (Discuss DNR or withdrawal of care, Hospice)? @ -No What co-morbidities impacted this encounter? (DM, HTN, Smoking, COPD, CAD, Cancer, CVA, Hep., AIDS, mental health diagnosis, sleep apnea, morbid obesity)? @ -None Was patient admitted / discharged? @ -Discharged. X-ray of the thoracic and lumbar spine demonstrates degenerative changes and stable sclerosis of the sacroiliac joints. Urinalysis negative for signs of infection. Pain well-controlled in the emergency department. Symptoms likely musculoskeletal in nature given the reproducibility and because it is worse with movement. Prescription for ibuprofen, Robaxin, and lidocaine patches provided with dosing instructions reviewed. Advised follow-up with her primary care provider. Patient discharged home in stable condition. Undiagnosed new problem with uncertain prognosis? @ -None Drug Therapy requiring intensive monitoring for toxicity (Heparin, Nitro, Insulin, Cardizem)? @ -None Were any procedures done? @ -None Diagnosis/symptom? @ -Lumbar strain Acute, or Chronic, or Acute on Chronic? @ -Acute Uncomplicated (without systemic symptoms) or Complicated (systemic symptoms)? @ -Uncomplicated Side effects of treatment? @ -None Exacerbation, Progression, or Severe Exacerbation] @ -Not applicable Poses a threat to life or bodily function? @ -No Return precautions reviewed in depth, the patient is instructed to return to the emergency department with any new, worsening, or concerning symptoms. Patient verbalized understanding. This case was discussed in detail with the attending ED physician, Dr. Roberson. Presentation, findings, and treatment plan discussed in detail as well. - Lab Data Lab Results 10/17/23 Range/Units 09:52 Urine Color Colorless Urine Appearance Clear (Clear) Urine pH 5.5 (5.0-8.0) Ur Specific [place] 1.015 (1.001-1.035) Urine Protein Negative (Negative) Urine Glucose (UA) Negative (Negative) Urine Ketones 1+ H (Negative) Urine Blood Negative (Negative) Urine Nitrite Negative (Negative) Urine Bilirubin Negative (Negative) Urine Urobilinogen 2.0 (<2.0) mg/dL Ur Leukocyte Esterase Small H (Negative) Urine WBC 4 (0-5) /hpf Ur Squamous Epith Cells 2 (0-4) /hpf Urine Mucus Rare H (None) /hpf - Radiology Data Radiology results: report reviewed, image reviewed Disposition Clinical Impression: Strain of lumbar region Disposition: HOME SELF-CARE Instructions (If sedation given, give patient instructions): Low Back Strain (ED), Acute Low Back Pain (ED) Additional Instructions: Return to the emergency department with any new, worsening, or concerning symptoms. Alternate with ibuprofen and Tylenol as needed for pain relief. You can take the Robaxin as 1 to 2 tablets up to 3-4 times daily. Be aware that this may make you drowsy. You can also apply the lidocaine patches daily. Follow up with your primary care provider in 1-2 days. Prescriptions: Lidocaine 5% Patch [Lidoderm 5% Patch] 1 patch TOPICAL DAILY PRN #30 patch PRN Reason: Pain Ibuprofen [Motrin] 800 mg PO Q8H PRN #30 tab PRN Reason: Pain methocarbamoL [Robaxin-750] 1,500 mg PO TID PRN #30 tab PRN Reason: Pain Is patient prescribed a controlled substance at d/c from ED?: No Referrals: Reed Gonzalez MD [Primary Care Provider] - 1-2 days Time of Disposition: 10:22
[2023-10-17] MEDS: MORPHINE SULFATE 4 MG/ML SYRINGE IVP STA (08:44)
[2023-10-17] MEDS: KETOROLAC 15 MG/ML 1 ML VIAL IVP STA (08:44)
[2023-10-17] MEDS: ORPHENADRINE 30 MG/ML 2 ML VIAL IVP STA (08:45)
--- NOTE | 2023-10-17 09:11 | XR ---
Lumbar spine HISTORY: Back pain COMPARISON: 02/17/2015. TECHNIQUE: 3 views of the lumbar spine were obtained. FINDINGS: The lumbar vertebral segments are normal in height and alignment there is no fracture or subluxation. There is mild degenerative disc disease at the L4-5 level where there is mild discogenic endplate franchesca nge and spondylosis. There is moderate sclerosis of the of the iliac side of the SI joints which do n ot appear widened . IMPRESSION: 1. Mild degenerative disc disease at the L4-5 level. 2. No lumbar spine fracture or malalignment. 3. Stable sclerosis of the iliac side of the SI joints most consistent with osteitis condense ilii
--- NOTE | 2023-10-17 09:12 | XR ---
Thoracic spine. HISTORY: Back pain COMPARISON: None. TECHNIQUE: AP and lateral views of thoracic spine were obtained. FINDINGS: The thoracic vertebral segments are normal in height and alignment. The disc spaces are well preserve d There is no scoliosis. The paraspinal soft tissues are unremarkable. IMPRESSION: No significant amount is seen.
[2023-10-17 09:24] VITALS: RESP 16; TEMP 98.5
[2023-10-17 09:57] LABS: Appearance,Urine Clear (Clear); Bilirubin,Urine Negative (Negative); Blood,Urine Negative (Negative); Color,Urine Colorless; Glucose,Urine (UA) Negative (Negative); Ketones,Urine 1+ (Negative); Leukocyte Esterase,Urine Small (Negative); Mucus,Urine Rare /hpf; Nitrite,Urine Negative (Negative); PH, Urine 5.5 (5.0-8.0); Protein,Urine Negative (Negative); Specific Gravity,Urine 1.015 (1.001-1.035); Squamous Epithelial Cell,Urine 2 /hpf (0-4); WBC,Urine 4 /hpf (0-5)
[2023-10-17] MEDS: ONDANSETRON 4 MG ODT STARTER PACK 2 TAB BTL PO STA (10:35)
[2023-10-17] MEDS: traMADol 50 MG STARTER PACK 3 TAB BTL PO STA (10:35)
[2023-10-17] MEDS: MORPHINE SULFATE 4 MG/ML SYRINGE IM STA (10:35)
[2023-10-17] MEDS: KETOROLAC 15 MG/ML 1 ML VIAL IM STA (10:36)
[2023-10-17] MEDS: LIDOCAINE 4% PATCH TOPICAL ONE (10:36)
[2023-10-17 11:09] VITALS: BP 136/86; PULSE 68
== END 2023-10-17 10:49 | disposition home or self-care (01) ==
LOC: EC 08:15
DX: S39.012A Strain of muscle, fascia and tendon of lower back, initial encounter (principal); M51.34 Other intervertebral disc degeneration, thoracic region; M48.04 Spinal stenosis, thoracic region; M51.36 Other intervertebral disc degeneration, lumbar region; M48.061 Spinal stenosis, lumbar region without neurogenic claudication; Z88.2 Allergy status to sulfonamides; Z88.8 Allergy status to other drugs, medicaments and biological substances; Z91.041 Radiographic dye allergy status; Z87.891 Personal history of nicotine dependence; X58.XXXA Exposure to other specified factors, initial encounter
CPT/HCPCS: 99284; 96374; 96375 ×2; 96372 ×2; 81001; 72070; 72100; J2270; J2360; J1885; S0119

== ENCOUNTER → 2023-10-26 | Outpatient (CLI) | payer BC ==
--- NOTE | 2023-10-29 11:56 | MR ---
EXAMINATION TYPE: MR shoulder LT wo con DATE OF EXAM: 10/26/2023 COMPARISON: None. HISTORY: Pain left shoulder 6-8 weeks with difficulty raising arm overhead TECHNIQUE: Multiplanar, multisequence imaging of the left shoulder is performed without contrast. FINDINGS: Rotator Cuff: Intact supraspinatus and infraspinatus tendons. Intact subscapularis tendon. Rotator cu ff muscle bulk is preserved. Acromioclavicular Joint: Mild to moderate narrowing. No significant spurring. Glenohumeral Joint: Small joint effusion. No significant spurring. Labrum: Increased signal superior labrum consistent with tear. Biceps Tendon: The long head of biceps is in normal location within bicipital groove. Bone marrow signal: No focal abnormal marrow signal is appreciated. Other: No additional significant abnormality is appreciated. IMPRESSION: Probable superior labral tear. No rotator cuff tear.
== END | disposition home or self-care (01) ==
LOC: RADMRIMAIN 19:45
PROVIDERS: ATTEND Family Medicine
DX: M25.512 Pain in left shoulder (principal)

== ENCOUNTER → 2024-08-01 | Outpatient (CLI) | payer BC ==
[2024-08-01 15:40] LABS: ALT 23 U/L (8-44); AST 18 U/L (13-35); Blood Urea Nitrogen 12.6 mg/dL (9.0-27.0)
[2024-08-01 16:09] LABS: Basophils # (A) 0.04 X 10*3/uL (0.00-0.10); Basophils % (A) 0.5 %; Eosinophils # (A) 0.12 X 10*3/uL (0.04-0.35); Eosinophils % (A) 1.6 %; HCT 42.6 % (37.2-46.3); HGB 13.4 g/dL (12.0-15.0); Lymphocytes % (A) 29.7 %; MCH 29.3 pg (27.0-32.0); MCHC 31.5 g/dL (32.0-37.0); MCV 93.2 FL (80.0-97.0); Mean Platelet Volume 10.6 FL (9.5-12.2); Monocytes % (A) 6.7 %; NRBC Per 100 WBC 0 X 10*3/uL (0.00-0.01); Neutrophils # (A) 4.52 X 10*3/uL (1.80-7.70); Neutrophils % (A) 61.1 %; Platelet Count 308 X 10*3/uL (140-440); RBC 4.57 X 10*6/uL (4.10-5.20); RDW 13.3 % (11.5-14.5); WBC 7.41 X 10*3/uL (4.50-10.00)
== END | disposition home or self-care (01) ==
LOC: LABWHC1 08:31
PROVIDERS: ATTEND Specialist
DX: Z51.81 Encounter for therapeutic drug level monitoring (principal); M45.8 Ankylosing spondylitis sacral and sacrococcygeal region; Z79.899 Other long term (current) drug therapy
CPT/HCPCS: 36415; 82565; 84450; 84460; 84520; 85025

== ENCOUNTER 2024-10-06 05:22 | Emergency (ER) | payer BC ==
[2024-10-06 05:42] VITALS: RESP 16; TEMP 98.7
--- NOTE | 2024-10-06 07:06 | ED ---
General Adult HPI - General Chief complaint: Recheck/Abnormal Lab/Rx Stated complaint: Hypertension Time Seen by Provider: 10/06/24 05:41 Source: patient, RN notes reviewed Mode of arrival: ambulatory Limitations: no limitations - History of Present Illness Initial comments: 54-year-old female presents emergency department complaint of hypertension. Pat ient states that has been slightly elevated over the last several days. She was started on losartan 3 months ago. Patient states she did take it around 430 this morning patient states she has some left arm achiness. Patient denies any chest pain denies shortness of breath but her concern is she may have a blood clot. Patient denies any fevers or chills no cough cold-like symptoms. - Related Data Home Medications Medication Instructions Recorded Confirmed metFORMIN HCL [Glucophage] 500 mg PO BID 09/17/15 11/18/21 Pravastatin Sodium [Pravachol] 20 mg PO HS 03/25/17 11/18/21 Aspirin EC [Ecotrin] 325 mg PO DAILY 10/26/18 11/18/21 Cholecalciferol [Vitamin D3 (125 125 mcg PO DAILY 11/18/21 11/18/21 Mcg = 5000 Iu)] Semaglutide [Ozempic] 0.25 mg SQ TH 11/18/21 11/18/21 estradioL [Vagifem] 10 mcg VAGINAL DIRECTED 11/18/21 11/18/21 sitaGLIPtin [Januvia] 100 mg PO DAILY 11/18/21 11/18/21 Previous Rx's Medication Instructions Recorded Cefuroxime [Ceftin] 250 mg PO BID 7 Days #14 tab 11/19/21 Nirmatrelvir/Ritonavir [Paxlovid 1 each PO BID #1 unit 07/08/23 2X150 mg-100 mg (Eua)] Ibuprofen [Motrin] 800 mg PO Q8H PRN #30 tab 10/17/23 Lidocaine 5% Patch [Lidoderm 5% 1 patch TOPICAL DAILY PRN #30 patch 10/17/23 Patch] methocarbamoL [Robaxin-750] 1,500 mg PO TID PRN #30 tab 10/17/23 Allergies Allergy/AdvReac Type Severity Reaction Status Date / Time Iodinated Contrast Media AdvReac Rash/Hives Verified 10/06/24 05:42 iodine AdvReac Rash/Hives Verified 10/06/24 05:42 Sulfa (Sulfonamide AdvReac Rash/Hives Verified 10/06/24 05:42 Antibiotics) Review of Systems ROS Statement: Those systems with pertinent positive or pertinent negative responses have been documented in the HPI. ROS Other: All systems not noted in ROS Statement are negative. Past Medical History Past Medical History: Asthma, Blood Disorder, COPD, Diabetes Mellitus, GERD/Reflux, GI Bleed, Sleep Apnea/CPAP/BIPAP Additional Past Medical History / Comment(s): Recent tooth infection/completed antibiotics, NIDDM type II, occasional neuropathy bilateral hands/feet, Factor V, lupus anticoagulants, MARC with Cpap, tachycardia, chronic back pain/ankylosing spondylitis, migraines, lower GI bleed, diverticulitis, benign colon polyp, hemorrhoids, past enlarged salivary gland, kidney stones, pt states on statin to protect kidneys. History of Any Multi-Drug Resistant Organisms: ESBL Date of last positivie culture/infection: 11/21/21 ESBL E.coli MDRO Source:: Urine Past Surgical History: Cholecystectomy, Heart Catheterization, Orthopedic S urgery, Tonsillectomy, Tubal Ligation, Uterine Ablation Additional Past Surgical History / Comment(s): TTT, R heel spur, bronchoscopy, EGD, colonoscopy Past Anesthesia/Blood Transfusion Reactions: No Reported Reaction, Motion Sickness Past Psychological History: Anxiety Smoking Status: Former smoker Past Alcohol Use History: None Reported Past Drug Use History: Marijuana - Past Family History Mother Family Medical History: COPD Additional Family Medical History / Comment(s): Mother of COPD at the age of 59/60. She was a smoker. Father Family Medical History: Diabetes Mellitus General Exam Limitations: no limitations General appearance: alert, in no apparent distress Head exam: Present: atraumatic, normocephalic, normal inspection Eye exam: Present: normal appearance, PERRL, EOMI. Absent: scleral icterus, conjunctival injection, periorbital swelling ENT exam: Present: normal exam, normal oropharynx, mucous membranes moist Neck exam: Present: normal inspection, full ROM. Absent: tenderness, meningismus, lymphadenopathy Respiratory exam: Present: normal lung sounds bilaterally. Absent: respiratory distress, wheezes, rales, rhonchi, stridor Cardiovascular Exam: Present: regular rate, normal rhythm, normal heart sounds. Absent: systolic murmur, diastolic murmur, rubs, gallop, clicks Course Vital Signs 10/06/24 10/06/24 05:36 07:18 Temperature 98.7 F Pulse Rate 110 H 103 H Respiratory 16 16 Rate Blood Pressure 153/80 135/80 O2 Sat by Pulse 98 Oximetry EKG Findings - EKG Comments: EKG Findings:: EKG performed at 5: 40 sinus tachycardia rate of 107 TX 144 QRS 82 QT/QTc 317/380 - EKG Results: EKG: interpreted by SHANNA Medical Decision Making - Medical Decision Making Was pt. sent in by a medical professional or institution (, DUANE, PROPERTY MANAGEMENT INTERN, urgent care, hospital, or alf...) When possible be specific @ -No Did you speak to anyone other than the patient for history (EMS, parent, family, police, friend...)? What history was obtained from this source @ -No Did you review nursing and triage notes (agree or disagree)? Why? @ -I reviewed and agree with nursing and triage notes Were old charts reviewed (outside hosp., previous admission, EMS record, old EKG, old radiological studies, urgent care reports/EKG's, alf records)? Report findings @ -No old charts were reviewed Differential Diagnosis (chest pain, altered mental status, abdominal pain women, abdominal pain men, vaginal bleeding, weakness, fever, dyspnea, syncope, headache, dizziness, GI bleed, back pain, seizure, CVA, palpatations, mental health, musculoskeletal)? @ -Differential Chest Pain: Stable Angina, Unstable Angina, STEMI, NSTEMI Aortic Dissection, Pneumothorax, Musculoskeletal, Esophageal Spasm GERD, Cholecystitis, Pancreatitis, Zoster, this is not meant to be an all-inclusive list. EKG interpreted by me (3pts min.). @ -As above X-rays interpreted by me (1pt min.). @ -None done CT interpreted by me (1pt min.). @ -None done U/S interpreted by me (1pt. min.). @ -None done What testing was considered but not performed or refused? (CT, X-rays, U/S, labs)? Why? @ -None What meds were considered but not given or refused? Why? @ -None Did you discuss the management of the patient with other professionals (professionals i.e. , DUANE, PROPERTY MANAGEMENT INTERN, lab, RT, psych nurse, adoption social worker, agricultural sciences professor, teacher, airfield services officer, director of casework department)? Give summary @ -No Was smoking cessation discussed for >3mins.? @ -No Was critical care preformed (if so, how long)? @ -No Were there social determinants of health that impacted care today? How? (Homelessness, low income, unemployed, alcoholism, drug addiction, transportation, low edu. Level, literacy, decrease access to med. care, mcc, rehab)? @ -No Was there de-escalation of care discussed even if they declined (Discuss DNR or withdrawal of care, Hospice)? DNR status @ -No What co-morbidities impacted this encounter? (DM, HTN, Smoking, COPD, CAD, Cancer, CVA, ARF, Chemo, Hep., AIDS, mental health diagnosis, sleep apnea, morbid obesity)? @ -None Was patient admitted / discharged? Hospital course, mention meds given and route, prescriptions, significant lab abnormalities, going to OR and other pertinent info. @ -Discharge patient laboratory studies including D-dimer, troponin negative. Patient blood pressure is improved. Patient will be discharged in stable condition return parameters discussed Undiagnosed new problem with uncertain prognosis? @ -No Drug Therapy requiring intensive monitoring for toxicity (Heparin, Nitro, Insulin, Cardizem)? @ -No Were any procedures done? @ -No Diagnosis/symptom? @ -Hypertension Acute, or Chronic, or Acute on Chronic? @ -Acute Uncomplicated (without systemic symptoms) or Complicated (systemic symptoms)? @ -Uncomplicated Side effects of treatment? @ -No Exacerbation, Progression, or Severe Exacerbation? @ -No Poses a threat to life or bodily function? How? (Chest pain, [place], [place], pneumonia, PE, COPD, DKA, ARF, appy, cholecystitis, CVA, Diverticulitis, Homicidal, Suicidal, threat to staff... and all critical care pts) @ -No - Lab Data Result diagrams: 10/06/24 07:32 10/06/24 07:32 Lab Results 10/06/24 10/06/24 10/06/24 Range/Units 07:32 07:32 07:32 WBC 8.6 (3.8-10.6) k/uL RBC 4.72 (3.80-5.40) m/uL Hgb 13.9 (11.4-16.0) gm/dL Hct 44.2 (34.0-46.0) % MCV 93.6 (80.0-100.0) fL MCH 29.5 (25.0-35.0) pg MCHC 31.5 (31.0-37.0) g/dL RDW 13.0 (11.5-15.5) % Plt Count 302 (150-450) k/uL MPV 7.6 Neutrophils % 74 % Lymphocytes % 17 % Monocytes % 6 % Eosinophils % 1 % Basophils % 0 % Neutrophils # 6.3 (1.3-7.7) k/uL Lymphocytes # 1.5 (1.0-4.8) k/uL Monocytes # 0.5 (0-1.0) k/uL Eosinophils # 0.1 (0-0.7) k/uL Basophils # 0.0 (0-0.2) k/uL D-Dimer 0.49 (<0.60) mg/L FEU Sodium 139 (137-145) mmol/L Potassium 4.4 (3.5-5.1) mmol/L Chloride 102 (98-107) mmol/L Carbon Dioxide 26 (22-30) mmol/L Anion Gap 11 mmol/L BUN 13 (7-17) mg/dL Creatinine 0.70 (0.52-1.04) mg/dL Est GFR (CKD-EPI)AfAm >90 (>60 ml/min/1.73 sqM) Est GFR (CKD-EPI)NonAf >90 (>60 ml/min/1.73 sqM) Glucose 139 H (74-99) mg/dL Calcium 9.6 (8.4-10.2) mg/dL Total Bilirubin 0.4 (0.2-1.3) mg/dL AST 27 (14-36) U/L ALT 30 (4-34) U/L Alkaline Phosphatase 79 (38-126) U/L Troponin I (0.000-0.034) ng/mL Total Protein 7.1 (6.3-8.2) g/dL Albumin 4.4 (3.5-5.0) g/dL 10/06/24 Range/Units 07:32 WBC (3.8-10.6) k/uL RBC (3.80-5.40) m/uL Hgb (11.4-16.0) gm/dL Hct (34.0-46.0) % MCV (80.0-100.0) fL MCH (25.0-35.0) pg MCHC (31.0-37.0) g/dL RDW (11.5-15.5) % Plt Count (150-450) k/uL MPV Neutrophils % % Lymphocytes % % Monocytes % % Eosinophils % % Basophils % % Neutrophils # (1.3-7.7) k/uL Lymphocytes # (1.0-4.8) k/uL Monocytes # (0-1.0) k/uL Eosinophils # (0-0.7) k/uL Basophils # (0-0.2) k/uL D-Dimer (<0.60) mg/L FEU Sodium (137-145) mmol/L Potassium (3.5-5.1) mmol/L Chloride (98-107) mmol/L Carbon Dioxide (22-30) mmol/L Anion Gap mmol/L BUN (7-17) mg/dL Creatinine (0.52-1.04) mg/dL Est GFR (CKD-EPI)AfAm (>60 ml/min/1.73 sqM) Est GFR (CKD-EPI)NonAf (>60 ml/min/1.73 sqM) Glucose (74-99) mg/dL Calcium (8.4-10.2) mg/dL Total Bilirubin (0.2-1.3) mg/dL AST (14-36) U/L ALT (4-34) U/L Alkaline Phosphatase (38-126) U/L Troponin I <0.012 (0.000-0.034) ng/mL Total Protein (6.3-8.2) g/dL Albumin (3.5-5.0) g/dL Disposition Clinical Impression: Hypertension Disposition: HOME SELF-CARE Condition: Stable Instructions (If sedation given, give patient instructions): Hypertension (ED) Additional Instructions: Please return to the Emergency Department if symptoms worsen or any other concerns. Is patient prescribed a controlled substance at d/c from ED?: No Referrals: Reed Gonzalez MD [Primary Care Provider] - 1-2 days Time of Disposition: 08:20
[2024-10-06 07:41] LABS: Basophils % (A) 0 %; Eosinophils # (A) 0.1 k/uL (0-0.7); Eosinophils % (A) 1 %; HCT 44.2 % (34.0-46.0); HGB 13.9 gm/dL (11.4-16.0); Lymphocytes # (A) 1.5 k/uL (1.0-4.8); Lymphocytes % (A) 17 %; MCH 29.5 pg (25.0-35.0); MCHC 31.5 g/dL (31.0-37.0); MCV 93.6 fL (80.0-100.0); Mean Platelet Volume 7.6; Monocytes # (A) 0.5 k/uL (0-1.0); Monocytes % (A) 6 %; Neutrophils # (A) 6.3 k/uL (1.3-7.7); Neutrophils % (A) 74 %; Platelet Count 302 k/uL (150-450); RBC 4.72 m/uL (3.80-5.40); WBC 8.6 k/uL (3.8-10.6)
[2024-10-06 08:03] LABS: ALT 30 U/L (4-34); AST 27 U/L (14-36); African American GFR (CKD) >90 (>60 ml/min/1.73 sqM); Albumin 4.4 g/dL (3.5-5.0); Alkaline Phosphatase 79 U/L (38-126); Anion Gap 11 mmol/L; Blood Urea Nitrogen 13 mg/dL (7-17); Calcium 9.6 mg/dL (8.4-10.2); Carbon Dioxide 26 mmol/L (22-30); Chloride 102 mmol/L (98-107); Glucose 139 mg/dL (74-99); Non-African American GFR(CKD) >90 (>60 ml/min/1.73 sqM); Potassium 4.4 mmol/L (3.5-5.1); Sodium 139 mmol/L (137-145); Total Bilirubin 0.4 mg/dL (0.2-1.3); Total Protein 7.1 g/dL (6.3-8.2)
[2024-10-06 08:31] VITALS: BP 138/80; PULSE 98
== END 2024-10-06 08:31 | disposition home or self-care (01) ==
LOC: EC 05:22
DX: I10 Essential (primary) hypertension (principal); R00.0 Tachycardia, unspecified; Z79.899 Other long term (current) drug therapy; Z88.2 Allergy status to sulfonamides; Z91.041 Radiographic dye allergy status; Z87.891 Personal history of nicotine dependence
CPT/HCPCS: 36415; 80053; 84484; 85025; 85379; 93005; 99283

== ENCOUNTER → 2024-10-21 | Outpatient (CLI) | payer BC ==
--- NOTE | 2024-10-24 07:24 | MM ---
Reason for Exam: Screening (asymptomatic). Last screening mammogram was performed 12 month(s) ago. Patient History: Menarche at age 7. First Full-Term at age 16. Estrogen for 4 months. Maternal grandmother had breast cancer. Risk Values: Kezia 5 year model risk: 1.0%. NCI Lifetime model risk: 6.4%. Prior Study Comparison: 07/12/2021 Bilateral Screening Mammogram, [facility]. 10/03/2022 Bilateral MG 3D screening mammo w/cad, [facility]. 10/05/2023 Bilateral MG 3D screening mammo w/cad, [facility]. Tissue Density: There are scattered areas of fibroglandular density. Findings: Analyzed By CAD. There is no suspicious group of microcalcifications or new suspicious mass in either breast. Overall Assessment: Negative, BI-RAD 1 Management: Screening Mammogram of both breasts in 1 year. . Patient should continue monthly self-breast exams. A clinical breast exam by your physician is recommended on an annual basis. This exam should not preclude additional follow-up of suspicious palpable abnormalities. Note on Kezia scores and lifetime risk: 1. A Kezia score greater than 3% is considered moderate risk. If this is the case, consider specialist referral to assess eligibility for a risk reducing agent. 2. If overall lifetime risk for the development of breast cancer is 20% or higher, the patient may qualify for future screening with alternating mammogram and breast MRI. [facility], , 10/24/2024 7:20 AM. Electronically signed and approved by: Maurizio Ramos M.D. Radiologis
== END | disposition home or self-care (01) ==
LOC: RADMAMWWP 16:05
PROVIDERS: ATTEND Family Medicine
DX: Z12.31 Encounter for screening mammogram for malignant neoplasm of breast (principal); R92.323 Mammographic fibroglandular density, bilateral breasts; Z80.3 Family history of malignant neoplasm of breast
CPT/HCPCS: 77063; 77067

== ENCOUNTER → 2024-10-24 | Outpatient (CLI) | payer BC ==
--- NOTE | 2024-10-24 15:08 | US ---
EXAMINATION TYPE: US carotid duplex BILAT DATE OF EXAM: 10/24/2024 COMPARISON: NONE CLINICAL INDICATION: Female, 54 years old with history of R42 DIZZINESS AND GIDDINESS; Additional History: .... TECHNIQUE: Grayscale, color Doppler and spectral Doppler evaluation of the bilateral carotid systems and vertebral arteries. Indirect Doppler criteria was utilized. FINDINGS: EXAM MEASUREMENTS: RIGHT: Peak Systolic Velocity (PSV) cm/sec ----- Right CCA: 116 ----- Right ICA: 131 ----- Right ECA: 134 ICA/CCA ratio: 1.2 RIGHT: End Diastole cm/sec ----- Right CCA: 18.2 ----- Right ICA: 37.4 ----- Right ECA: 7.3 LEFT: Peak Systolic Velocity (PSV) cm/sec ----- Left CCA: 60.8 ----- Left ICA: 109 ----- Left ECA: 69.1 ICA/CCA ratio: 1.8 LEFT: End Diastole cm/sec ----- Left CCA: 9.5 ----- Left ICA: 32.1 ----- Left ECA: 8.9 VERTEBRALS (direction of flow): Right Vertebral: Antegrade Left Vertebral: Antegrade Rhythm: Normal DOT COMPLIANCE MANAGER NOTES: slightly limited exam due to vessel tortuosity No elevated velocities or bilateral plaque seen. No significant stenosis seen Color Doppler imaging shows patency with blood flow throughout the carotid artery. Spectral waveforms are within normal limits. IMPRESSION: Right: Less than 50% stenosis of the carotid bifurcation. Left: Less than 50% stenosis of the carotid bifurcation. Criteria for Assigning % of Stenosis / Diameter reduction (Estimation based on the indirect measurements of the internal carotid artery velocities (ICA PSV). 1. Normal (no stenosis)=ICA PSV < 180 cm/s: ratio < 2.0: ICA EDV<40 cm/s. 2. Less than 50% stenosis=ICA PSV < 180 cm/s: ratio < 2.0: ICA EDV<40 cm/s. 3. 50 to 69% stenosis=ICA PSV of 180 to 230 cm/s: ration 2.0 ? 4.0: ICA EDV 40-100 cm/s. PSV 125-180 cm/sec and ICA/CCA PSV Ratio ? 2.0 is also consistent with 50-69% stenosis 4. Greater than 70% stenosis to near occlusion= ICA PSV > 230 cm/s: ratio > 4.0: ICA EDV > 100 cm/s. 5. Near occlusion= ICA PSV velocities may be low or undetectable: variable ratio and ICA EDV. 6. Total occlusion=unable to detect flow. [facility], , 10/24/2024 3:06 PM
== END | disposition home or self-care (01) ==
LOC: RADUSWWP 14:22
PROVIDERS: ATTEND Family Medicine
DX: I65.23 Occlusion and stenosis of bilateral carotid arteries (principal)
CPT/HCPCS: 93880

== ENCOUNTER → 2024-11-21 | Outpatient (CLI) | payer BC ==
--- NOTE | 2024-11-21 07:40 | USB ---
Reason for Exam: Clinical finding. Patient History: Menarche at age 7. First Full-Term at age 16. Estrogen for 4 months. Maternal grandmother had breast cancer. Risk Values: Kezia 5 year model risk: 1.0%. NCI Lifetime model risk: 6.4%. Technique: Method: Whole Breast Handheld. Prior Study Comparison: 10/03/2022 Bilateral MG 3D screening mammo w/cad, [facility]. 10/05/2023 Bilateral MG 3D screening mammo w/cad, [facility]. 10/21/2024 Bilateral MG 3D screening mammo w/cad, [facility]. Findings: The whole breast of both breasts, the axilla of both breasts and the retroareolar of both breasts were scanned. A complete US of all four quadrants of the bilateral breasts and retro-areolar region were reviewed. Bilateral axilla were scanned. No solid or cystic masses are identified. No suspicious adenopathy or concerning focal fluid collection. Overall Assessment: Negative, BI-RAD 1 Management: Screening Mammogram of both breasts in 11 months. Managed clinically patient's symptoms of bilateral diffuse breast pain. A clinical breast exam by your physician is recommended on an annual basis and results should be correlated with mammographic findings. This exam should not preclude additional follow-up of suspicious palpable abnormalities. Results were given to the patient verbally at the time of exam. [facility], , 11/21/2024 7:38 AM. Electronically signed and approved by: Timmy Quiroga M.D.
== END | disposition home or self-care (01) ==
LOC: RADUSWWP 07:01
PROVIDERS: ATTEND Family Medicine
DX: N64.4 Mastodynia (principal); Z80.3 Family history of malignant neoplasm of breast

== ENCOUNTER → 2024-11-23 | Outpatient (CLI) | payer BC ==
--- NOTE | 2024-11-23 16:52 | CA ---
Transthoracic Echo Report Name: Katelynn Preston Age: 54 Gender: F : 1970 Exam Date: 11/23/2024 15:17 Exam Location: [facility] Ht (in): 60 Wt (lb): 185 Ordering Physician: Reed Gonzalez MD Attending/Referring Phys: Jennifer Rick PAC Forensic Anthropologist Radha Yung RDCS Procedure CPT: Indications: R06.00 DYSPNEA, UNSPECIFIED Cardiac Hx: Technical Quality: Good Contrast 1: Total Dose (mL): Contrast 2: Total Dose (mL): MEASUREMENTS (Male / Female) Normal Values 2D ECHO LV Diastolic Diameter PLAX 4.3 cm 4.2 - 5.9 / 3.9 - 5.3 cm LV Systolic Diameter PLAX 3.0 cm IVS Diastolic Thickness 1.0 cm 0.6 - 1.0 / 0.6 - 0.9 cm LVPW Diastolic Thickness 1.1 cm 0.6 - 1.0 / 0.6 - 0.9 cm LV Relative Wall Thickness 0.5 RV Internal Dim ED PLAX 2.5 cm LV Diastolic Volume MOD BP 54.7 cm??? 67 - 155 / 56 - 104 cm??? LV Systolic Volume MOD BP 23.9 cm??? 22 - 58 / 19 - 49 cm??? LV Ejection Fraction MOD BP 56.2 % >= 55 % LV Cardiac Index MOD BP 1531.9 cm???/min???m??? LV Diastolic Volume MOD 4C 61.1 cm??? LV Systolic Volume MOD 4C 27.3 cm??? LV Ejection Fraction MOD 4C 55.3 % LV Cardiac Index MOD 4C 1681.5 cm???/min???m??? LV Diastolic Length 4C 7.5 cm LV Systolic Length 4C 6.1 cm LV Diastolic Volume MOD 2C 45.7 cm??? LV Systolic Volume MOD 2C 20.9 cm??? LV Ejection Fraction MOD 2C 54.4 % LV Cardiac Index MOD 2C 1238.0 cm???/min???m??? LV Diastolic Length 2C 6.9 cm LV Systolic Length 2C 6.0 cm LA Volume 43.1 cm??? 18 - 58 / 22 - 52 cm??? LA Volume Index 22.4 cm???/m??? 16 - 28 cm???/m??? M-MODE Aortic Root Diameter MM 2.9 cm LA Systolic Diameter MM 3.5 cm LA Ao Ratio MM 1.2 AV Cusp Separation MM 2.0 cm DOPPLER MV Area PHT 4.9 cm??? Mitral E Point Velocity 73.1 cm/s Mitral A Point Velocity 96.2 cm/s Mitral E to A Ratio 0.8 MV Deceleration Time 153.6 ms TR Peak Velocity 196.5 cm/s TR Peak Gradient 15.4 mmHg FINDINGS Left Ventricle Left ventricular ejection fraction is estimated at 55-60%. Normal left ventricular systolic function with no obvious regional wall motion abnormalities. Left ventricular cavity size normal. Mildly increased septal wall thickness. Mildly increased posterior wall thickness. Right Ventricle Normal right ventricular size and function. Right ventricular systolic pressure within normal limits. Right Atrium Normal right atrial size. Left Atrium Mild left atrial dilatation. Mitral Valve Structurally normal mitral valve. Trace mitral regurgitation. No mitral stenosis. Aortic Valve Trileaflet aortic valve. No aortic valve stenosis or regurgitation. Tricuspid Valve Structurally normal tricuspid valve. Mild tricuspid regurgitation. No tricuspid stenosis. Pulmonic Valve Structurally normal pulmonic valve. Trace pulmonic regurgitation. No pulmonic stenosis. Pericardium No pericardial or pleural effusion. Aorta Normal size aortic root and proximal ascending aorta. CONCLUSIONS Left ventricular ejection fraction 55 to 60% Trace mitral regurgitation Mild tricuspid regurgitation No pericardial effusion Previewed by: Dr. Osito Ledezma DO (Electronically Signed) Final Date: 23 November 2024 16:51
== END | disposition home or self-care (01) ==
LOC: RADECHMAIN 15:04
PROVIDERS: ATTEND Family Medicine
DX: I08.1 Rheumatic disorders of both mitral and tricuspid valves (principal); R06.00 Dyspnea, unspecified
CPT/HCPCS: 93306

== ENCOUNTER → 2024-11-29 | Outpatient (CLI) | payer BC ==
--- NOTE | 2024-11-29 10:25 | CT ---
EXAMINATION TYPE: CT chest wo con DATE OF EXAM: 11/29/2024 9:31 AM COMPARISON: 05/03/2020 CLINICAL INDICATION: Female, 54 years old with history of R07.81 PLEURODYNIA; PHH, lump in right late ral side, h/o COPD TECHNIQUE: CT of the chest without IV contrast. Coronal and sagittal reconstructions performed. CT DLP: 416 mGycm, Automated exposure control for dose reduction was used. FINDINGS: Heart normal size with trace pericardial fluid. No coronary artery calcification seen. Aorta normal caliber with conventional arch vessel branching anatomy. Scattered nonenlarged mediastinal lymph nodes. Calcified left hilar lymph nodes compatible with prior granulomatous disease. Some minimal strandy atelectasis lower lungs. Mild emphysematous change. A few 4 mm and smaller pulmo nary nodules remain unchanged compatible with a benign etiology. A few of these are calcified indicat ing a benign granulomas. No consolidation or pleural effusion. Visualized upper abdomen shows markedly diminished attenuation of liver parenchyma and some calcified granulomas within the spleen. Cholecystectomy clips. There is a lobulated area of low density at the evangelina hepatis of the liver measuring 2.9 cm suggestin g an area of greater fatty infiltration. Cholecystectomy clips. No discrete soft tissue abnormality of the right lateral chest wall. Bones: Moderate to severe degenerative disc disease T10-T11. No osseous destructive process. IMPRESSION: 1. COPD with mild emphysema. No acute pulmonary process. Evidence of prior granulomatous disease. 2. Hepatomegaly and severe hepatic steatosis in the right side of the upper abdomen. Appropriate clin ical management is advised. [facility], , 11/29/2024 10:23 AM
== END | disposition home or self-care (01) ==
LOC: RADCTMAIN 09:08
PROVIDERS: ATTEND Family Medicine
DX: J44.9 Chronic obstructive pulmonary disease, unspecified (principal); K76.0 Fatty (change of) liver, not elsewhere classified; R16.0 Hepatomegaly, not elsewhere classified; J43.9 Emphysema, unspecified
CPT/HCPCS: 71250

== ENCOUNTER → 2025-01-20 | Outpatient (CLI) | payer BC ==
--- NOTE | 2025-01-20 14:15 | XR ---
EXAMINATION TYPE: XR foot complete bilateral DATE OF EXAM: 01/20/2025 7:17 AM COMPARISON: None. CLINICAL INDICATION: Female, 54 years old with history of M25.50 PAIN IN UNSPECIFIED JOINT M45.8 ANKY LOSING, pain TECHNIQUE: 3 view(s) obtained with. FINDINGS: No acute fractures evident. Joint spaces are preserved. Soft tissues are normal. Left Achilles tendon calcaneal heel spur is present. Follow up exams can be performed 7-10 days from acute trauma for continued pain. IMPRESSION: 1. No acute osseous abnormality bilateral feet [facility], , 01/20/2025 2:12 PM
--- NOTE | 2025-01-20 14:28 | XR ---
EXAMINATION TYPE: XR hand complete bilateral DATE OF EXAM: 01/20/2025 7:17 AM COMPARISON: None. CLINICAL INDICATION: Female, 54 years old with history of M25.50 PAIN IN UNSPECIFIED JOINT M45.8 ANKY LOSING, pain TECHNIQUE: 3 view(s) obtained. FINDINGS: No acute fracture or dislocation evident. Joint spaces are preserved. Soft tissues appear normal. Follow up exams can be performed 7-10 days from acute trauma for continued pain. IMPRESSION: 1. No acute osseous abnormality left hand [facility], , 01/20/2025 2:25 PM
== END | disposition home or self-care (01) ==
LOC: RADXRMAIN 06:53
PROVIDERS: ATTEND Specialist
DX: M45.8 Ankylosing spondylitis sacral and sacrococcygeal region (principal)

== ENCOUNTER → 2025-02-10 | Outpatient (CLI) | payer BC ==
--- NOTE | 2025-02-10 18:39 | MR ---
EXAMINATION TYPE: MR sacroiliac joints wo con DATE OF EXAM: 02/10/2025 5:57 PM COMPARISON: CT 11/17/2021. CLINICAL INDICATION: Female, 54 years old with history of M45.8 ANKYLOSING SPONDYLITIS SACRAL AND SAC ROCOCCY; PHH, Pain lower and mid back, Evaluate for sacroilitis, TECHNIQUE: Triplane multisequence imaging was performed of the pelvis. IV Contrast: mL FINDINGS: Reproductive: Vagina: Unremarkable. Uterus: The uterus is anteverted in position. Uterus measures 5.9 x 2.3 x 4.4 cm. The endometrium and junctional zone are within normal limits. Multiple nabothian cysts are seen in the lower uterine se gment. Uterine fibroid is present measuring up to 10 mm. Ovaries: Follicular changes are noted to the ovaries. Bladder: Unremarkable. Bowel: Unremarkable as visualized. Peritoneum: No free fluid or adenopathy. Lymph nodes: No evidence of adenopathy. Vasculature: Unremarkable. Musculoskeletal: Bone marrow signal is within normal signal intensity. Mild osteophyte formation and degeneration of the sacroiliac joints. No abnormal bony edema adjacent to the joints. Joints are nonf used. Abdominal wall/soft tissues: Unremarkable. IMPRESSION: Mild degeneration changes of the relate joints. No evidence for bony edema to suggest active inflamma tion. No evidence for osseous fusion. [facility], , 02/10/2025 6:37 PM
== END | disposition home or self-care (01) ==
LOC: RADMRIMAIN 16:35
PROVIDERS: ATTEND Specialist
DX: M45.8 Ankylosing spondylitis sacral and sacrococcygeal region (principal); M46.1 Sacroiliitis, not elsewhere classified
CPT/HCPCS: 72195